=== PATIENT | female | born 1935 | race Caucasian/White ===

== ENCOUNTER 2017-04-26 14:52 | Inpatient (IN) | payer OTHER ==
[2017-04-26] MEDS ORDERED: NS 250 ML IV 250 ML IV ONE (15:38)
[2017-04-26 17:03] LABS: BASOPHILS # (AUTO) 0.1 X10^3/uL (0.0-0.1); BASOPHILS % (AUTO) 0.5 % (0.2-1.0); EOSINOPHILS # (AUTO) 0.1 x10^3/uL (0.0-0.2); EOSINOPHILS % (AUTO) 0.8 % (0.9-2.9); HEMATOCRIT 30.7 % (36.0-47.0); HEMOGLOBIN 10.1 g/dL (12.0-16.0); LYMPHOCYTES # (AUTO) 1.7 X10^3/uL (1.3-2.9); MEAN CORPUSCULAR HEMOGLOBIN 28.9 pg (27.0-34.0); MEAN CORPUSCULAR HGB CONC 32.8 g/dL (33.0-35.0); MEAN CORPUSCULAR VOLUME 88.1 fL (80.0-100.0); MEAN PLATELET VOLUME 8.3 fL (7.4-11.0); MONOCYTES # (AUTO) 0.6 x10^3/uL (0.3-0.8); MONOCYTES % (AUTO) 5.6 % (0.0-13.0); NEUTROPHILS # (AUTO) 7.8 x10^3/uL (2.2-4.8); NEUTROPHILS % (AUTO) 76.1 % (42.0-75.0); PLATELET COUNT 369 X10^3/uL (150.0-450.0); RED BLOOD COUNT 3.49 X10^6/uL (3.5-5.4); RED CELL DISTRIBUTION WIDTH 14.7 % (11.6-16.5); WHITE BLOOD COUNT 10.2 X10^3/uL (3.6-10.0)
[2017-04-26 17:10] VITALS: BMI 20.2
[2017-04-26] MEDS: NS 1000 ML 1,000 ML IV SCH (17:19)
[2017-04-26 17:25] LABS: ALANINE AMINOTRANSFERASE 14 Units/L (12-78); ALBUMIN 3.8 g/dL (3.4-5.0); ALKALINE PHOSPHATASE 110 Units/L (46-116); ASPARTATE AMINO TRANSFERASE 15 Units/L (15-37); BLOOD UREA NITROGEN 34 mg/dL (7-18); CALCIUM 9.2 mg/dL (8.5-10.1); CARBON DIOXIDE 17.2 mmol/L (21-32); CHLORIDE 102 mmol/L (98-107); CKMB % 1.8 % (<4); COR NA(FOR HYPERGLY) 135 mmol/L (136-145); CREATINE KINASE 56 Units/L (26-192); CREATINE KINASE MB < 1.0 ng/mL (0-4.0); CREATININE 2.03 mg/dL (0.55-1.02); SODIUM 132 mmol/L (136-145); TOTAL PROTEIN 7.3 g/dL (6.4-8.2); TROPONIN I < 0.02 ng/mL (0-1.5); eGFR BLACK RACES 30 (>60); eGFR NON BLACK RACES 25 (>60)
[2017-04-26] MEDS: NORVASC TAB 5 MG PO SCH (17:40)
--- NOTE | 2017-04-26 18:21 | RAD ---
Examination: Portable AP chest History: Syncope, bradycardia and AFib Comparison reference: None available Findings: Normal heart size, clear lungs and pleural spaces. There is no evidence for pneumonia, pulm onary edema or pleural fluid. There is evidence for previous breast surgery. There is slight cortical irregularity of the greater tuberosity of the left humerus. Impression: No acute chest disease noted. Previous breast surgery. Correlate clinically for any recen t injury to the left shoulder, see above. New Reported By:
[2017-04-26] MEDS ORDERED: HumuLIN R SUBCUT PRN (19:09)
[2017-04-26] MEDS: SNACK - Diabetic Appropriate PO SCH (20:42)
[2017-04-26 20:57] LABS: CKMB % 2.1 % (<4); CREATINE KINASE 48 Units/L (26-192); CREATINE KINASE MB < 1.0 ng/mL (0-4.0); TROPONIN I < 0.02 ng/mL (0-1.5)
[2017-04-27 00:14] LABS: CREATINE KINASE 49 Units/L (26-192); CREATINE KINASE MB < 1.0 ng/mL (0-4.0); TROPONIN I < 0.02 ng/mL (0-1.5)
[2017-04-27] MEDS: NS 1000 ML 1,000 ML IV SCH ×2 (05:59→18:42)
[2017-04-27 06:16] LABS: ALBUMIN 3.1 g/dL (3.4-5.0); CALCIUM 8.6 mg/dL (8.5-10.1); CARBON DIOXIDE 15.8 mmol/L (21-32); COR CA(FOR HYPOALB) 9.3 mg/dL (8.5-10.1); CREATININE 1.73 mg/dL (0.55-1.02); TOTAL PROTEIN 6.2 g/dL (6.4-8.2)
--- NOTE | 2017-04-27 06:17 | RAD ---
Examination: Portable AP chest History: Syncope, bradycardia Comparison reference: 04/26/2017 Findings: Continued normal heart size with tortuous aorta, essentially clear lungs and pleural spaces . No pneumothorax, pneumonia or large pleural effusion. Epidural device again noted in the thoracic s [place] canal. Impression: No change; no acute disease. Reported By:
[2017-04-27 06:22] LABS: BASOPHILS % (AUTO) 0.2 % (0.2-1.0); EOSINOPHILS # (AUTO) 0.2 x10^3/uL (0.0-0.2); EOSINOPHILS % (AUTO) 2.3 % (0.9-2.9); HEMATOCRIT 27.6 % (36.0-47.0); HEMOGLOBIN 9.2 g/dL (12.0-16.0); LYMPHOCYTES # (AUTO) 2.3 X10^3/uL (1.3-2.9); LYMPHOCYTES % (AUTO) 24.8 % (21.0-51.0); MEAN CORPUSCULAR HEMOGLOBIN 29.1 pg (27.0-34.0); MEAN CORPUSCULAR HGB CONC 33.3 g/dL (33.0-35.0); MEAN CORPUSCULAR VOLUME 87.5 fL (80.0-100.0); MEAN PLATELET VOLUME 8.1 fL (7.4-11.0); MONOCYTES # (AUTO) 0.8 x10^3/uL (0.3-0.8); MONOCYTES % (AUTO) 8.5 % (0.0-13.0); NEUTROPHILS % (AUTO) 64.2 % (42.0-75.0); PLATELET COUNT 324 X10^3/uL (150.0-450.0); RED BLOOD COUNT 3.15 X10^6/uL (3.5-5.4); RED CELL DISTRIBUTION WIDTH 14.5 % (11.6-16.5); WHITE BLOOD COUNT 9.4 X10^3/uL (3.6-10.0)
[2017-04-27] MEDS: NORVASC TAB 5 MG PO SCH (08:20)
[2017-04-27] MEDS ORDERED: PATIENT'S HOME MEDICATION (Fluticasone/Vilanterol [Breo Ellipta 100-25 Mcg Inh] 1 PUFF) INH PRN (09:23)
[2017-04-27] MEDS: ZESTRIL TAB 20 MG PO SCH (10:38)
[2017-04-27] MEDS ORDERED: ZESTRIL TAB 20 MG ONE (10:39)
[2017-04-27] MEDS ORDERED: CATAPRES-TTS-1 TD SCH (12:00)
--- NOTE | 2017-04-27 12:21 | DR.UPDATE ---
H&P Update History and Physical Update: WAS SEEN IN THE OFFICE ON 04/26/17. A H&P WAS COMPLETED PRIOR TO ADMISSION. Changes noted: YES Yes with the following: MS. LORD IS A PRIOR PATIENT OF . SHE RECENTLY STARTED SEEING US. PRESENTED WITH WEAKNESS THAT STARTED ONE WEEK PRIOR TO PRESENTING TO THE OFFICE. SHE REPORTED FEELING LIGHTHEADED AT HOME ON WEDNESDAY AND NEARLY PASSED OUT. SHE REPORTED EXCESSIVE FATIGUE, POOR APPETITE, AND NAUSEA. ON ARRIVAL TO THE OFFICE , HEARTRATE WAS NOTED TO BE 44BPM. BLOOD PRESSURE WAS 92/51. AN EKG WAS OBTAINED AND REPORTED ATRIAL FIBRILLATION WITH A HEART RATE IN THE 40S. PATIENT REPORTS A HISTORY OF HYPERTENSION AND CVA. SHE REPORTED THAT HER BLOOD PRESSURE HAS FLUCTUATED FROM HIGH TO LOW IN THE PAST 2 WEEKS. PATIENT DENIES A KNOWN HISTORY OF ATRIAL FIBRILLATION. PATIENT HAS A HOME MEDICATION OF LABETALOL LISTED. THIS WAS ORDERED FROM PATIENT'S PREVIOUS DOCTOR. WE WILL DISCONTINUE LABETALOL AT THIS TIME. WE ADMITTED PATIENT FOR FURTHER TREATMENT AND EVALUATION. WE PLANNED TO CHECK CBC, CMP, ECHO, CHEST XRAY, AND SERIAL CARDIAC ENZYMES AND EKGS ON ADMISSION. SHE WAS STARTED ON NORMAL SALINE BOLUS AT 75ML/ HR. A NORMAL SALINE BOLUS WILL BE ORDERED. ON ADMISSION TO THE HOSPITAL, VITAL SIGNS WERE 97.1-45-14-100%-123/59. ABNORMAL LAB VALUES INCLUDE THE FOLLOWING: WBC 10.2, RBC 3.49, HGB 10.1, HCT 30.7, SODIUM 132, POTASSIUM 6.8, CARBON DIOXIDE 17.2, BUN 34, CREATININE 2.03, GFR 25 , GLUCOSE 206. CARDIAC ENZYMES WERE UNREMARKABLE. EKG REPORTED JUNCTIONAL RHYTHM , MINIMAL ST DEPRESSION WITH HR 44. CHEST XRAY REPORTED NO ACUTE CHEST DISEASE NOTED. PREVIOUS BREAST SURGERY. SLIGHT CORTICAL IRREGULARITY OF THE GREATER TUBEROSITY OF THE LEFT HUMERUS. AN ECHO WAS OBTAINED AND REPORTED AN EJECTION FRACTION OF 78%, TRACE PERICARDIAL EFFUSION, POSTERIOR. WE PLAN TO FOLLOW UP WITH AM LABS AND CONTINUE TO MONITOR PATIENT.
[2017-04-27] MEDS: HYDROCHLOROTHIAZIDE 25 MG TAB PO SCH (12:27)
[2017-04-27] MEDS: PROVENTIL NEB TX 0.083% 2.5MG/ 3ML NEB SCH ×3 (12:45→20:09)
[2017-04-27] MEDS: NORCO 7.5/325 MG TAB PO PRN (15:14)
[2017-04-27] MEDS: PULMICORT NEB TX 0.5 MG NEB SCH (20:09)
[2017-04-27] MEDS: SNACK - Diabetic Appropriate PO SCH (20:37)
[2017-04-27] MEDS: AMBIEN PO SCH (20:38)
[2017-04-28 06:10] LABS: BASOPHILS # (AUTO) 0.1 X10^3/uL (0.0-0.1); BASOPHILS % (AUTO) 1.1 % (0.2-1.0); EOSINOPHILS # (AUTO) 0.4 x10^3/uL (0.0-0.2); EOSINOPHILS % (AUTO) 4.6 % (0.9-2.9); LYMPHOCYTES # (AUTO) 2.3 X10^3/uL (1.3-2.9); LYMPHOCYTES % (AUTO) 27.5 % (21.0-51.0); MEAN CORPUSCULAR HEMOGLOBIN 28.5 pg (27.0-34.0); MEAN CORPUSCULAR HGB CONC 32.5 g/dL (33.0-35.0); MEAN CORPUSCULAR VOLUME 87.8 fL (80.0-100.0); MEAN PLATELET VOLUME 8.3 fL (7.4-11.0); MONOCYTES # (AUTO) 0.6 x10^3/uL (0.3-0.8); MONOCYTES % (AUTO) 7.7 % (0.0-13.0); NEUTROPHILS # (AUTO) 4.9 x10^3/uL (2.2-4.8); NEUTROPHILS % (AUTO) 59.1 % (42.0-75.0); PLATELET COUNT 350 X10^3/uL (150.0-450.0); RED BLOOD COUNT 3.88 X10^6/uL (3.5-5.4); RED CELL DISTRIBUTION WIDTH 14.9 % (11.6-16.5); WHITE BLOOD COUNT 8.3 X10^3/uL (3.6-10.0)
[2017-04-28 06:23] LABS: ALANINE AMINOTRANSFERASE 16 Units/L (12-78); ALBUMIN 3.4 g/dL (3.4-5.0); ALKALINE PHOSPHATASE 106 Units/L (46-116); ASPARTATE AMINO TRANSFERASE 19 Units/L (15-37); BLOOD UREA NITROGEN 26 mg/dL (7-18); CALCIUM 8.8 mg/dL (8.5-10.1); CHLORIDE 109 mmol/L (98-107); COR NA(FOR HYPERGLY) 140 mmol/L (136-145); SODIUM 139 mmol/L (136-145); TOTAL PROTEIN 7.1 g/dL (6.4-8.2); eGFR BLACK RACES 46 (>60); eGFR NON BLACK RACES 38 (>60)
[2017-04-28] MEDS: NS 1000 ML 1,000 ML IV SCH ×2 (07:11→21:50)
--- NOTE | 2017-04-28 07:25 | RAD ---
Examination: Portable AP chest History: Syncope, AFib Comparison reference: 04/27/2017 Findings: Continued normal cardiac size and position. The lungs remain grossly clear and there is no evidence for pneumothorax or developing pleural effusion. Impression: No interval change or acute process demonstrated. Reported By:
[2017-04-28] MEDS ORDERED: ZESTRIL TAB 20 MG ONE (08:39)
[2017-04-28] MEDS: NORVASC TAB 5 MG PO SCH (08:41)
[2017-04-28] MEDS: HYDROCHLOROTHIAZIDE 25 MG TAB PO SCH (08:41)
[2017-04-28] MEDS: ZESTRIL TAB 20 MG PO SCH (08:41)
[2017-04-28] MEDS: PROVENTIL NEB TX 0.083% 2.5MG/ 3ML NEB SCH ×4 (08:55→21:01)
[2017-04-28] MEDS: PULMICORT NEB TX 0.5 MG NEB SCH ×2 (08:56→21:01)
[2017-04-28] MEDS ORDERED: CATAPRES-TTS-3 TD SCH (11:00)
[2017-04-28] MEDS: NORVASC TAB 10 MG PO SCH (11:20)
[2017-04-28] MEDS: NORCO 7.5/325 MG TAB PO PRN (12:18)
--- NOTE | 2017-04-28 13:15 | PCM.PROG ---
Progress Note - Progress Note for Day of Date: 04/27/17 - Subjective Subjective: WAS ADMITTED FOR NEAR SYNCOPE, NEW ONSET BRADYCARDIA, AND NEW ONSET A-FIB. TODAY, PATIENT IS ALERT AND ORIENTED, LYING IN BED ON MORNING ROUNDS. SHE IS NOTED WITH COMPLAINTS OF WEAKNESS. ON EXAMINATION, LUNGS ARE CLEAR TO AUSCULTATION. ABDOMEN IS ROUND, SOFT, AND NON-TENDER WITH NORMAL BOWEL SOUNDS NOTED IN ALL QUADRANTS. PATIENT IS NOTED TO BE UTILIZING OXYGEN VIA NASAL CANNULA AT 2L/MIN. SINUS BRADYCARDIA IS NOTED ON THE NUTRITIONAL YEAST SUPERVISOR. HER VITAL SIGNS THIS MORNING ARE 98.7-47-17-100%-171/70. LABS, CHEST XRAY, AND EKG WERE OBTAINED. ABNORMAL LAB VALUES INCLUDE THE FOLLOWING: RBC 3.15, HGB 9.2 , HCT 27.6. POTASSIUM 5.3, CHLORIDE 108, CARBON DIOXIDE 15.8, BUN 29, CREATININE 1.73, GLUCOSE 144, TOTAL PROTEIN 6.2, ALBUMIN 3.1. CARDIAC ENZYMES HAVE BEEN UNREMARKABLE. LATEST EKG REPORTS JUNCTIONAL RHYTHM WITH HR OF 50. TODAY'S CHEST XRAY REPORTS NO ACUTE DISEASE. PATIENT WAS NOTED TO BE ON A HOME MEDICATION OF LABETALOL PRIOR TO ADMISSION. WE WILL DISCONTINUE THIS MEDICATION AND ADVISE THE PATIENT NO STOP TAKING IT. TODAY, WE PLAN TO START CLONIDINE 0.3MG TD PATCH AND HCTZ 25MG PO DAILY. OTHERWISE, WE WILL CONTINUE WITH CURRENT PLAN OF CARE. WE PLAN TO FOLLOW UP WITH AM LABS AND CONTINUE TO MONITOR PATIENT. - Past Medical Family Social History Past Med/Fam/Surg Hx: No changes since H&P Allergies: Allergies No Known Allergies [NKA] Allergy (Verified 04/26/17 16:45) - Review of Systems ROS: No change since H&P - Vital Signs and I&O's Vital Signs: Temperature 98.4 F Pulse Rate [Apical] 79 Pulse Rate 78 Respiratory Rate 22 Blood Pressure [Right Arm] 196/88 Blood Pressure [Left Arm] 177/74 O2 Sat by Pulse Oximetry 97 Intake and Output: Intake & Output 04/26/17 04/27/17 04/28/17 04/29/17 11:59 11:59 11:59 11:59 Intake Total 1349 2316 Balance 1349 2316 - Physical Exam Oriented: Normal Eyes: Normal Ear: Normal. negative: Right, Left, Swelling, Ecchymosis, Hemotypanum, Abrasion , Laceration Nose: Normal. negative: Injected, Discharge, Blood, Other Throat: Normal. negative: Tonsillar Hypertrophy, Red, Exudate, Dry, Other Respiratory: Normal. negative: Right, Left, Generalized, Superior, Inferior, Diminished, Wheezes, Rales, Rhonchi, OTHER Cardiovascular: Bradycardia. negative: Tachycardia, Murmur, Edema Auscultation: Bowel Sounds: Normal. negative: Bruit, Absent, Increased, Decreased, High Pitched, Other Palpation: Normal Tenderness: Normal. negative: Diffuse, RUQ, RLQ, LUQ, LLQ, Epigastric, Periumbilical, Suprapubic, Mild, Moderate, Severe, Rebound, Guarding, Rigidity, Other Skin: Normal Musculoskeletal: Normal Psychiatric: Normal. negative: Anxiety, Depression, Agitation, Other Mood Description: Calm Affect: Normal Speech Pattern: Clear, Appropriate - Laboratory and Diagnostics Result Diagrams: 04/28/17 05:45 04/28/17 05:45 Labs: Laboratory WBC 8.3 X10^3/uL (3.6-10.0) 04/28/17 05:45 RBC 3.88 X10^6/uL (3.5-5.4) 04/28/17 05:45 Hgb 11.0 g/dL (12.0-16.0) L 04/28/17 05:45 Hct 34.0 % (36.0-47.0) L 04/28/17 05:45 MCV 87.8 fL (80.0-100.0) 04/28/17 05:45 MCH 28.5 pg (27.0-34.0) 04/28/17 05:45 MCHC 32.5 g/dL (33.0-35.0) L 04/28/17 05:45 RDW 14.9 % (11.6-16.5) 04/28/17 05:45 Plt Count 350 X10^3/uL (150.0-450.0) 04/28/17 05:45 MPV 8.3 fL (7.4-11.0) 04/28/17 05:45 Neut % 59.1 % (42.0-75.0) 04/28/17 05:45 Lymph % 27.5 % (21.0-51.0) 04/28/17 05:45 [place] % 7.7 % (0.0-13.0) 04/28/17 05:45 Eos % 4.6 % (0.9-2.9) H 04/28/17 05:45 Baso % 1.1 % (0.2-1.0) H 04/28/17 05:45 Neut # 4.9 x10^3/uL (2.2-4.8) H 04/28/17 05:45 Lymph # 2.3 X10^3/uL (1.3-2.9) 04/28/17 05:45 [place] # 0.6 x10^3/uL (0.3-0.8) 04/28/17 05:45 Eos # 0.4 x10^3/uL (0.0-0.2) H 04/28/17 05:45 Baso # 0.1 X10^3/uL (0.0-0.1) 04/28/17 05:45 Absolute Nucleated RBC 0.1 /100WBC 04/28/17 05:45 Sodium 139 mmol/L (136-145) 04/28/17 05:45 Corrected Sodium 140 mmol/L (136-145) 04/28/17 05:45 Potassium 5.4 mmol/L (3.5-5.1) H 04/28/17 05:45 Chloride 109 mmol/L (98-107) H 04/28/17 05:45 Carbon Dioxide 19.0 mmol/L (21-32) L 04/28/17 05:45 BUN 26 mg/dL (7-18) H 04/28/17 05:45 Creatinine 1.40 mg/dL (0.55-1.02) H 04/28/17 05:45 Est GFR (MDRD) Af Amer 46 (>60) L 04/28/17 05:45 Est GFR (MDRD) Non-Af 38 (>60) L 04/28/17 05:45 Glucose 129 mg/dL (65-99) H 04/28/17 05:45 POC Glucose (mg/dL) 153 mg/dL (65-99) H 04/28/17 12:16 Calcium 8.8 mg/dL (8.5-10.1) 04/28/17 05:45 Corrected Calcium TNP 04/28/17 05:45 Total Bilirubin 0.30 mg/dL (0.2-1.0) 04/28/17 05:45 AST 19 Units/L (15-37) 04/28/17 05:45 ALT 16 Units/L (12-78) 04/28/17 05:45 Alkaline Phosphatase 106 Units/L (46-116) 04/28/17 05:45 Creatine Kinase 49 Units/L (26-192) 04/26/17 23:43 CK-MB (CK-2) < 1.0 ng/mL (0-4.0) 04/26/17 23:43 CK/CKMB % Calc 2.0 % (<4) 04/26/17 23:43 Troponin I < 0.02 ng/mL (0-1.5) 04/26/17 23:43 Total Protein 7.1 g/dL (6.4-8.2) 04/28/17 05:45 Albumin 3.4 g/dL (3.4-5.0) 04/28/17 05:45 Globulin 3.7 g/dL (2.5-4.5) 04/28/17 05:45 Albumin/Globulin Ratio 0.9 Ratio (1.1-2.1) L 04/28/17 05:45 - Plan (1) Bradycardia Status: Acute Plan: DISCONTINUE LABETALOL FROM HOME MEDICATIONS, CONTINUE SUPPLEMENTAL OXYGEN , CONTINUE TELEMETRY, CONTINUE TO MONITOR (2) Near syncope Status: Acute Plan: CONTINUE IVF, CONTINUE TELEMETRY, CONTINUE TO MONITOR (3) Hypertension Status: Acute Qualifiers: Hypertension type: essential hypertension Qualified Code(s): I10 - Essential (primary) hypertension Plan: START CLONIDINE 0.1MG TD PATCH, HCTZ 25MG PO DAILY, CONTINUE LISINOPRIL 25MG PO DAILY, CONTINUE NORVASC 5MG PO DAILY, CONTINUE TO MONITOR (4) Diabetes Status: Acute Qualifiers: Diabetes mellitus type: type 2 Diabetes mellitus complication status: without complication Diabetes mellitus tank terminal gauger insulin use: with tank terminal gauger use Qualified Code(s): E11.9 - Type 2 diabetes mellitus without complications ; Z79.4 - assisted (current) use of insulin; Z79.4 - assisted (current) use of insulin; Z79.4 - ferry terminal supervisor (current) use of insulin; Z79.4 - assisted ( current) use of insulin Plan: MONITOR OTBS, SLIDING SCALE HUMULIN R, CONTINUE TO MONITOR
[2017-04-28] MEDS: AMBIEN PO SCH (21:51)
[2017-04-28] MEDS: SNACK - Diabetic Appropriate PO SCH (21:51)
[2017-04-29] MEDS: NS 1000 ML 1,000 ML IV SCH (05:43)
[2017-04-29 06:06] LABS: BASOPHILS # (AUTO) 0.1 X10^3/uL (0.0-0.1); BASOPHILS % (AUTO) 1.4 % (0.2-1.0); EOSINOPHILS # (AUTO) 0.3 x10^3/uL (0.0-0.2); EOSINOPHILS % (AUTO) 3.9 % (0.9-2.9); HEMATOCRIT 33.5 % (36.0-47.0); LYMPHOCYTES # (AUTO) 1.9 X10^3/uL (1.3-2.9); LYMPHOCYTES % (AUTO) 25.3 % (21.0-51.0); MEAN CORPUSCULAR HEMOGLOBIN 28.7 pg (27.0-34.0); MEAN CORPUSCULAR HGB CONC 32.9 g/dL (33.0-35.0); MEAN CORPUSCULAR VOLUME 87.1 fL (80.0-100.0); MEAN PLATELET VOLUME 8.7 fL (7.4-11.0); MONOCYTES # (AUTO) 0.6 x10^3/uL (0.3-0.8); MONOCYTES % (AUTO) 8.8 % (0.0-13.0); NEUTROPHILS # (AUTO) 4.5 x10^3/uL (2.2-4.8); NEUTROPHILS % (AUTO) 60.6 % (42.0-75.0); PLATELET COUNT 362 X10^3/uL (150.0-450.0); RED BLOOD COUNT 3.84 X10^6/uL (3.5-5.4); RED CELL DISTRIBUTION WIDTH 14.7 % (11.6-16.5); WHITE BLOOD COUNT 7.4 X10^3/uL (3.6-10.0)
[2017-04-29 06:20] LABS: ALBUMIN 3.3 g/dL (3.4-5.0); CARBON DIOXIDE 20.6 mmol/L (21-32); COR CA(FOR HYPOALB) 9.6 mg/dL (8.5-10.1); CREATININE 1.29 mg/dL (0.55-1.02); TOTAL PROTEIN 6.9 g/dL (6.4-8.2)
[2017-04-29] MEDS ORDERED: ZESTRIL TAB 20 MG ONE (08:09)
[2017-04-29] MEDS: ZESTRIL TAB 20 MG PO SCH (08:10)
[2017-04-29] MEDS: HYDROCHLOROTHIAZIDE 25 MG TAB PO SCH (08:10)
[2017-04-29] MEDS: NORVASC TAB 10 MG PO SCH (08:10)
[2017-04-29] MEDS: PULMICORT NEB TX 0.5 MG NEB SCH ×2 (09:27→21:05)
[2017-04-29] MEDS: PROVENTIL NEB TX 0.083% 2.5MG/ 3ML NEB SCH ×4 (09:27→21:05)
[2017-04-29] MEDS: TOPROL XL PO SCH (11:40)
[2017-04-29] MEDS: NORCO 7.5/325 MG TAB PO PRN (13:10)
[2017-04-29] MEDS: AMBIEN PO SCH (21:12)
[2017-04-29] MEDS: SNACK - Diabetic Appropriate PO SCH (21:17)
[2017-04-30 05:38] LABS: BASOPHILS # (AUTO) 0.1 X10^3/uL (0.0-0.1); BASOPHILS % (AUTO) 1.1 % (0.2-1.0); EOSINOPHILS # (AUTO) 0.3 x10^3/uL (0.0-0.2); EOSINOPHILS % (AUTO) 4.3 % (0.9-2.9); HEMATOCRIT 32.8 % (36.0-47.0); HEMOGLOBIN 10.8 g/dL (12.0-16.0); LYMPHOCYTES # (AUTO) 1.9 X10^3/uL (1.3-2.9); LYMPHOCYTES % (AUTO) 28.4 % (21.0-51.0); MEAN CORPUSCULAR HEMOGLOBIN 28.8 pg (27.0-34.0); MEAN CORPUSCULAR HGB CONC 32.8 g/dL (33.0-35.0); MEAN CORPUSCULAR VOLUME 87.8 fL (80.0-100.0); MEAN PLATELET VOLUME 8.2 fL (7.4-11.0); MONOCYTES # (AUTO) 0.6 x10^3/uL (0.3-0.8); NEUTROPHILS # (AUTO) 3.9 x10^3/uL (2.2-4.8); NEUTROPHILS % (AUTO) 57.2 % (42.0-75.0); PLATELET COUNT 356 X10^3/uL (150.0-450.0); RED BLOOD COUNT 3.74 X10^6/uL (3.5-5.4); RED CELL DISTRIBUTION WIDTH 14.2 % (11.6-16.5); WHITE BLOOD COUNT 6.8 X10^3/uL (3.6-10.0)
[2017-04-30 05:44] LABS: CALCIUM 9.1 mg/dL (8.5-10.1); CARBON DIOXIDE 23.4 mmol/L (21-32); COR CA(FOR HYPOALB) 9.9 mg/dL (8.5-10.1); CREATININE 1.34 mg/dL (0.55-1.02); TOTAL PROTEIN 6.3 g/dL (6.4-8.2)
[2017-04-30] MEDS: PULMICORT NEB TX 0.5 MG NEB SCH (08:41)
[2017-04-30] MEDS: PROVENTIL NEB TX 0.083% 2.5MG/ 3ML NEB SCH ×2 (08:41→11:44)
[2017-04-30] MEDS ORDERED: ZESTRIL TAB 20 MG ONE (09:00)
[2017-04-30] MEDS: TOPROL XL PO SCH (09:01)
[2017-04-30] MEDS: NORVASC TAB 10 MG PO SCH (09:01)
[2017-04-30] MEDS: ZESTRIL TAB 20 MG PO SCH (09:01)
[2017-04-30] MEDS: HYDROCHLOROTHIAZIDE 25 MG TAB PO SCH (09:01)
[2017-04-30] MEDS: NORCO 7.5/325 MG TAB PO PRN (09:40)
--- NOTE | 2017-04-30 10:19 | PCM.PROG ---
Progress Note - Subjective Subjective: WAS ADMITTED FOR NEAR SYNCOPE, NEW ONSET BRADYCARDIA, AND NEW ONSET A-FIB. TODAY, PATIENT IS ALERT AND ORIENTED, LYING IN BED ON MORNING ROUNDS. SHE CONTINUES WITH COMPLAINTS OF WEAKNESS AND IS ALSO NOTED WITH COMPLAINTS OF A HEADACHE. ON EXAMINATION, LUNGS ARE CLEAR TO AUSCULTATION. ABDOMEN IS ROUND, SOFT, AND NON-TENDER WITH NORMAL BOWEL SOUNDS NOTED IN ALL QUADRANTS. PATIENT IS NOTED TO BE UTILIZING OXYGEN VIA NASAL CANNULA AT 2L/MIN. SINUS RHYTHM IS NOTED ON THE JUNIOR BUSINESS ANALYST WITH HR IN THE 70S. HER VITAL SIGNS THIS MORNING ARE 98.2-73-22-100%-180/79. ABNORMAL LAB VALUES THIS MORING INCLUDE THE FOLLOWING: HGB 11.0, HCT 34. POTASSIUM 5.4, CHLORIDE 109, CARBON DIOXIDE 19.0, BUN 26, CREATININE 1.40, GLUCOSE 129. LATEST EKG REPORTS SINUS RHYTHM WITH HR 77. TODAY'S CHEST XRAY REPORTS NO INTERVAL CHANGE OR ACUTE PROCESS DEMONSTRATED. PATIENTS BLOOD PRESSURE REMAINS ELEVATED DESPITE CHANGES TO BLOOD PRESSURE MEDICATIONS. TODAY, WE WILL INCREASE CLONIDINE PATCH TO 0.3MG WEEKLY AND WILL INCREASE AMLODIPINE TO 10MG DAILY. OTHERWISE, WE WILL CONTINUE WITH CURRENT PLAN OF CARE. WE PLAN TO FOLLOW UP WITH AM LABS AND CONTINUE TO MONITOR PATIENT. - Past Medical Family Social History Past Med/Fam/Surg Hx: No changes since H&P Allergies: Allergies No Known Allergies [NKA] Allergy (Verified 04/26/17 16:45) - Review of Systems ROS: No change since H&P - Vital Signs and I&O's Vital Signs: Temperature 97.6 F Pulse Rate [Apical] 77 Pulse Rate 71 Respiratory Rate 18 Blood Pressure [Right Arm] 184/75 Blood Pressure [Left Arm] 177/74 O2 Sat by Pulse Oximetry 97 Intake and Output: Intake & Output 04/27/17 04/28/17 04/29/17 04/30/17 11:59 11:59 11:59 11:59 Intake Total 1349 2316 2628 1360 Output Total 1000 Balance 1349 2316 1628 1360 - Physical Exam Oriented: Normal Eyes: Normal Ear: Normal. negative: Right, Left, Swelling, Ecchymosis, Hemotypanum, Abrasion , Laceration Nose: Normal. negative: Injected, Discharge, Blood, Other Throat: Normal. negative: Tonsillar Hypertrophy, Red, Exudate, Dry, Other Respiratory: Normal. negative: Right, Left, Generalized, Superior, Inferior, Diminished, Wheezes, Rales, Rhonchi, OTHER Cardiovascular: Bradycardia. negative: Tachycardia, Murmur, Edema Auscultation: Bowel Sounds: Normal. negative: Bruit, Absent, Increased, Decreased, High Pitched, Other Palpation: Normal Tenderness: Normal. negative: Diffuse, RUQ, RLQ, LUQ, LLQ, Epigastric, Periumbilical, Suprapubic, Mild, Moderate, Severe, Rebound, Guarding, Rigidity, Other Skin: Normal Musculoskeletal: Normal Psychiatric: Normal. negative: Anxiety, Depression, Agitation, Other Mood Description: Calm Affect: Normal Speech Pattern: Clear, Appropriate - Laboratory and Diagnostics Result Diagrams: 04/30/17 04:40 04/30/17 04:40 Labs: Laboratory WBC 6.8 X10^3/uL (3.6-10.0) 04/30/17 04:40 RBC 3.74 X10^6/uL (3.5-5.4) 04/30/17 04:40 Hgb 10.8 g/dL (12.0-16.0) L 04/30/17 04:40 Hct 32.8 % (36.0-47.0) L 04/30/17 04:40 MCV 87.8 fL (80.0-100.0) 04/30/17 04:40 MCH 28.8 pg (27.0-34.0) 04/30/17 04:40 MCHC 32.8 g/dL (33.0-35.0) L 04/30/17 04:40 RDW 14.2 % (11.6-16.5) 04/30/17 04:40 Plt Count 356 X10^3/uL (150.0-450.0) 04/30/17 04:40 MPV 8.2 fL (7.4-11.0) 04/30/17 04:40 Neut % 57.2 % (42.0-75.0) 04/30/17 04:40 Lymph % 28.4 % (21.0-51.0) 04/30/17 04:40 [place] % 9.0 % (0.0-13.0) 04/30/17 04:40 Eos % 4.3 % (0.9-2.9) H 04/30/17 04:40 Baso % 1.1 % (0.2-1.0) H 04/30/17 04:40 Neut # 3.9 x10^3/uL (2.2-4.8) 04/30/17 04:40 Lymph # 1.9 X10^3/uL (1.3-2.9) 04/30/17 04:40 [place] # 0.6 x10^3/uL (0.3-0.8) 04/30/17 04:40 Eos # 0.3 x10^3/uL (0.0-0.2) H 04/30/17 04:40 Baso # 0.1 X10^3/uL (0.0-0.1) 04/30/17 04:40 Absolute Nucleated RBC 0.1 /100WBC 04/30/17 04:40 Sodium 138 mmol/L (136-145) 04/30/17 04:40 Corrected Sodium 139 mmol/L (136-145) 04/30/17 04:40 Potassium 4.8 mmol/L (3.5-5.1) 04/30/17 04:40 Chloride 107 mmol/L (98-107) 04/30/17 04:40 Carbon Dioxide 23.4 mmol/L (21-32) 04/30/17 04:40 BUN 28 mg/dL (7-18) H 04/30/17 04:40 Creatinine 1.34 mg/dL (0.55-1.02) H 04/30/17 04:40 Est GFR (MDRD) Af Amer 49 (>60) L 04/30/17 04:40 Est GFR (MDRD) Non-Af 40 (>60) L 04/30/17 04:40 Glucose 136 mg/dL (65-99) H 04/30/17 04:40 POC Glucose (mg/dL) 147 mg/dL (65-99) H 04/30/17 06:02 Calcium 9.1 mg/dL (8.5-10.1) 04/30/17 04:40 Corrected Calcium 9.9 mg/dL (8.5-10.1) 04/30/17 04:40 Total Bilirubin 0.20 mg/dL (0.2-1.0) 04/30/17 04:40 AST 15 Units/L (15-37) 04/30/17 04:40 ALT 14 Units/L (12-78) 04/30/17 04:40 Alkaline Phosphatase 98 Units/L (46-116) 04/30/17 04:40 Creatine Kinase 49 Units/L (26-192) 04/26/17 23:43 CK-MB (CK-2) < 1.0 ng/mL (0-4.0) 04/26/17 23:43 CK/CKMB % Calc 2.0 % (<4) 04/26/17 23:43 Troponin I < 0.02 ng/mL (0-1.5) 04/26/17 23:43 Total Protein 6.3 g/dL (6.4-8.2) L 04/30/17 04:40 Albumin 3.0 g/dL (3.4-5.0) L 04/30/17 04:40 Globulin 3.3 g/dL (2.5-4.5) 04/30/17 04:40 Albumin/Globulin Ratio 0.9 Ratio (1.1-2.1) L 04/30/17 04:40 - Plan (1) Bradycardia Status: Resolved Plan: CONTINUE SUPPLEMENTAL OXYGEN, CONTINUE TELEMETRY, CONTINUE TO MONITOR (2) Near syncope Status: Acute Plan: CONTINUE IVF, CONTINUE TELEMETRY, CONTINUE TO MONITOR (3) Hypertension Status: Acute Qualifiers: Hypertension type: essential hypertension Qualified Code(s): I10 - Essential (primary) hypertension Plan: START CLONIDINE 0.3MG TD PATCH, HCTZ 25MG PO DAILY, CONTINUE LISINOPRIL 25MG PO DAILY, NORVASC 10 MG PO DAILY, CONTINUE TO MONITOR (4) Diabetes Status: Acute Qualifiers: Diabetes mellitus type: type 2 Diabetes mellitus complication status: without complication Diabetes mellitus buttermaker insulin use: with buttermaker use Qualified Code(s): E11.9 - Type 2 diabetes mellitus without complications ; Z79.4 - alf (current) use of insulin; Z79.4 - alf (current) use of insulin; Z79.4 - alf (current) use of insulin; Z79.4 - exterminator helper ( current) use of insulin Plan: MONITOR OTBS, SLIDING SCALE HUMULIN R, CONTINUE TO MONITOR
[2017-04-30 10:20] VITALS: BP 160/75
--- NOTE | 2017-05-02 21:57 | PCM.PROG ---
Progress Note - Progress Note for Day of Date: 04/29/17 - Subjective Subjective: WAS ADMITTED FOR NEAR SYNCOPE, NEW ONSET BRADYCARDIA, AND NEW ONSET A-FIB. TODAY, PATIENT IS ALERT AND ORIENTED, LYING IN BED ON MORNING ROUNDS. SHE CONTINUES WITH COMPLAINTS OF WEAKNESS AND IS ALSO NOTED WITH COMPLAINTS OF A HEADACHE. PATIENT HAD AN EPISODE OF ATRIAL FIBRILLATION THROUGHOUT THE NIGHT. LATEST EKG REPORTS ATRIAL FIBRILLATION WITH RVR, VENTRICULAR PREMATURE COMPLEX, HR 159. ON EXAMINATION, LUNGS ARE CLEAR TO AUSCULTATION. ABDOMEN IS ROUND, SOFT, AND NON-TENDER WITH NORMAL BOWEL SOUNDS NOTED IN ALL QUADRANTS. PATIENT IS NOTED TO BE UTILIZING OXYGEN VIA NASAL CANNULA AT 2L/MIN. SINUS RHYTHM IS NOTED ON THE MEDICAL OFFICE WORKER WITH HR IN THE 90S. HER VITAL SIGNS THIS MORNING ARE 98.3-98-23-100%-194/87. ABNORMAL LAB VALUES THIS MORING INCLUDE THE FOLLOWING: HGB 10.8, HCT 32.8, CHLORIDE 108, CARBON DIOXIDE 20.6, BUN 23, CREATININE 1.29, GLUCOSE 128, ALBUMIN 3.3, A/G RATIO 0.9. PATIENTS BLOOD PRESSURE REMAINS ELEVATED DESPITE CHANGES TO BLOOD PRESSURE MEDICATIONS. TODAY, WE WILL START METOPROLOL XL 25MG PO DAILY. OTHERWISE, WE WILL CONTINUE WITH CURRENT PLAN OF CARE. WE PLAN TO FOLLOW UP WITH AM LABS AND CONTINUE TO MONITOR PATIENT. - Past Medical Family Social History Past Med/Fam/Surg Hx: No changes since H&P Allergies: Allergies No Known Allergies [NKA] Allergy (Verified 04/26/17 16:45) - Review of Systems ROS: No change since H&P - Vital Signs and I&O's Vital Signs: Temperature 97.6 F Pulse Rate [Apical] 74 Pulse Rate 71 Respiratory Rate 24 Blood Pressure [Right Arm] 160/75 Blood Pressure [Left Arm] 177/74 O2 Sat by Pulse Oximetry 97 Intake and Output: Intake & Output 04/30/17 05/01/17 05/02/17 05/03/17 11:59 11:59 11:59 11:59 Intake Total 1360 Balance 1360 - Physical Exam Oriented: Normal Eyes: Normal Ear: Normal. negative: Right, Left, Swelling, Ecchymosis, Hemotypanum, Abrasion , Laceration Nose: Normal. negative: Injected, Discharge, Blood, Other Throat: Normal. negative: Tonsillar Hypertrophy, Red, Exudate, Dry, Other Respiratory: Normal. negative: Right, Left, Generalized, Superior, Inferior, Diminished, Wheezes, Rales, Rhonchi, OTHER Cardiovascular: Bradycardia. negative: Tachycardia, Murmur, Edema : Normal Auscultation: Bowel Sounds: Normal. negative: Bruit, Absent, Increased, Decreased, High Pitched, Other Palpation: Normal Tenderness: Normal. negative: Diffuse, RUQ, RLQ, LUQ, LLQ, Epigastric, Periumbilical, Suprapubic, Mild, Moderate, Severe, Rebound, Guarding, Rigidity, Other Skin: Normal Musculoskeletal: Normal Psychiatric: Normal. negative: Anxiety, Depression, Agitation, Other Mood Description: Calm Affect: Normal Speech Pattern: Clear, Appropriate - Laboratory and Diagnostics Result Diagrams: 04/30/17 04:40 04/30/17 04:40 Labs: Laboratory WBC 6.8 X10^3/uL (3.6-10.0) 04/30/17 04:40 RBC 3.74 X10^6/uL (3.5-5.4) 04/30/17 04:40 Hgb 10.8 g/dL (12.0-16.0) L 04/30/17 04:40 Hct 32.8 % (36.0-47.0) L 04/30/17 04:40 MCV 87.8 fL (80.0-100.0) 04/30/17 04:40 MCH 28.8 pg (27.0-34.0) 04/30/17 04:40 MCHC 32.8 g/dL (33.0-35.0) L 04/30/17 04:40 RDW 14.2 % (11.6-16.5) 04/30/17 04:40 Plt Count 356 X10^3/uL (150.0-450.0) 04/30/17 04:40 MPV 8.2 fL (7.4-11.0) 04/30/17 04:40 Neut % 57.2 % (42.0-75.0) 04/30/17 04:40 Lymph % 28.4 % (21.0-51.0) 04/30/17 04:40 [place] % 9.0 % (0.0-13.0) 04/30/17 04:40 Eos % 4.3 % (0.9-2.9) H 04/30/17 04:40 Baso % 1.1 % (0.2-1.0) H 04/30/17 04:40 Neut # 3.9 x10^3/uL (2.2-4.8) 04/30/17 04:40 Lymph # 1.9 X10^3/uL (1.3-2.9) 04/30/17 04:40 [place] # 0.6 x10^3/uL (0.3-0.8) 04/30/17 04:40 Eos # 0.3 x10^3/uL (0.0-0.2) H 04/30/17 04:40 Baso # 0.1 X10^3/uL (0.0-0.1) 04/30/17 04:40 Absolute Nucleated RBC 0.1 /100WBC 04/30/17 04:40 Sodium 138 mmol/L (136-145) 04/30/17 04:40 Corrected Sodium 139 mmol/L (136-145) 04/30/17 04:40 Potassium 4.8 mmol/L (3.5-5.1) 04/30/17 04:40 Chloride 107 mmol/L (98-107) 04/30/17 04:40 Carbon Dioxide 23.4 mmol/L (21-32) 04/30/17 04:40 BUN 28 mg/dL (7-18) H 04/30/17 04:40 Creatinine 1.34 mg/dL (0.55-1.02) H 04/30/17 04:40 Est GFR (MDRD) Af Amer 49 (>60) L 04/30/17 04:40 Est GFR (MDRD) Non-Af 40 (>60) L 04/30/17 04:40 Glucose 136 mg/dL (65-99) H 04/30/17 04:40 POC Glucose (mg/dL) 147 mg/dL (65-99) H 04/30/17 06:02 Calcium 9.1 mg/dL (8.5-10.1) 04/30/17 04:40 Corrected Calcium 9.9 mg/dL (8.5-10.1) 04/30/17 04:40 Total Bilirubin 0.20 mg/dL (0.2-1.0) 04/30/17 04:40 AST 15 Units/L (15-37) 04/30/17 04:40 ALT 14 Units/L (12-78) 04/30/17 04:40 Alkaline Phosphatase 98 Units/L (46-116) 04/30/17 04:40 Creatine Kinase 49 Units/L (26-192) 04/26/17 23:43 CK-MB (CK-2) < 1.0 ng/mL (0-4.0) 04/26/17 23:43 CK/CKMB % Calc 2.0 % (<4) 04/26/17 23:43 Troponin I < 0.02 ng/mL (0-1.5) 04/26/17 23:43 Total Protein 6.3 g/dL (6.4-8.2) L 04/30/17 04:40 Albumin 3.0 g/dL (3.4-5.0) L 04/30/17 04:40 Globulin 3.3 g/dL (2.5-4.5) 04/30/17 04:40 Albumin/Globulin Ratio 0.9 Ratio (1.1-2.1) L 04/30/17 04:40 - Plan (1) Bradycardia Status: Resolved Plan: CONTINUE SUPPLEMENTAL OXYGEN, CONTINUE TELEMETRY, CONTINUE TO MONITOR (2) Near syncope Status: Acute Plan: CONTINUE IVF, CONTINUE TELEMETRY, CONTINUE TO MONITOR (3) Hypertension Status: Acute Qualifiers: Hypertension type: essential hypertension Qualified Code(s): I10 - Essential (primary) hypertension Plan: START CLONIDINE 0.3MG TD PATCH, HCTZ 25MG PO DAILY, CONTINUE LISINOPRIL 25MG PO DAILY, NORVASC 10 MG PO DAILY, CONTINUE TO MONITOR (4) Atrial fibrillation Status: Acute Qualifiers: Atrial fibrillation type: unspecified Qualified Code(s): I48.91 - Unspecified atrial fibrillation Plan: METOPROLOL XL 25MG PO DAILY, CONTINUE TO MONITOR (5) Diabetes Status: Acute Qualifiers: Diabetes mellitus type: type 2 Diabetes mellitus complication status: without complication Diabetes mellitus intermodal truck driver insulin use: with [facility] use Qualified Code(s): E11.9 - Type 2 diabetes mellitus without complications ; Z79.4 - group home (current) use of insulin; Z79.4 - extermination inspector (current) use of insulin; Z79.4 - group home (current) use of insulin; Z79.4 - group home ( current) use of insulin Plan: MONITOR OTBS, SLIDING SCALE HUMULIN R, CONTINUE TO MONITOR
== END 2017-04-30 11:50 | disposition home or self-care (01) | DRG 310 ==
LOC: UNDOADMIN 14:52 → ICU 14:52
PROVIDERS: ADMIT Internal Medicine; ATTEND Internal Medicine
DX: R00.1 Bradycardia, unspecified (principal); R55 Syncope and collapse; I48.91 Unspecified atrial fibrillation; R94.31 Abnormal electrocardiogram [ECG] [EKG]; I10 Essential (primary) hypertension; E11.65 Type 2 diabetes mellitus with hyperglycemia; Z79.4 Long term (current) use of insulin
CPT/HCPCS: 36415; 71010; 80053; 82550; 82553; 84484; 85025; 93005; 93306; 94640; A4216; A4222; J7613; J7626

== ENCOUNTER 2017-07-09 17:00 | Emergency (ER) | payer OTHER ==
[2017-07-09] MEDS ORDERED: NARCAN INJ IVP ONE (17:10)
[2017-07-09] MEDS ORDERED: NARCAN INJ ONE (17:21)
--- NOTE | 2017-07-09 17:28 | RAD ---
Examination: AP chest History: Chest pain Comparison reference 04/28/2017 Findings: Continued normal heart size with clear lungs and pleural spaces. There is a spinal cord sti mulator device in the thoracic spinal canal. Impression: Postsurgical findings, no acute process identified. Reported By:
--- NOTE | 2017-07-09 17:33 | DR.AMS ---
HPI - PCP Primary Care Physician: CASSANDRA - Complaint Chief Complaint:: ADMISSION CALLED TO HELP GET PT OUT OF THE CAR .. PT LIMP AND PLACED IN CARDIAC ROOM VIA W/C PT PLACED IN BED PT IS ABLE TO TALK AND ABLE TO ANSWER QUESTIONS PT STATES SHE HAS AN APPT TOMORROW FOR A PACEMAKER,, Self Treatment fo Chief Complaint: PT HR IN THE 40'S UPON ARRIVAL PT PLACED ON CM AND FERMÍN ROBL[place] AT BEDSIDE. - Reviewed Nurses Notes Reviewed: Yes - Source History Provided: Patient, Family Member - Mode of Arrival Mode of Arrival: Wheelchair - Timing Onset of Chief Complaint: 07/09/17 Came On: Gradually (hasn't felt well since last night, but no specific symptoms ) Symptoms: Worsening Symptom Onset: Unknown - Duration Duration: Constant - Quality Quality: Decreased Alertness - Severity Severity: Moderate - Context History Of: Diabetes (Pt awaiting pacemaker appt. Hx diamond episodes) - Associated Signs and Symptoms Associated Signs and Symptoms: Generalized Weakness (diaphorertic on arrival), Confusion PMH - PMH Past Medical History: Yes (hx diamond episodes) Past Medical History: Anemia, CVA, Diabetes, GERD, Hypertension Past Medical History Comment: PT HAS A STIMULATOR TO HER BACK.. Past Surgical History: Yes Surgical History: Appendectomy, Hysterectomy, Tonsillectomy - Family History History of Family Medical Conditions: Yes Family Medical History: Diabetes Mellitus, Cancer - Social History Does patient currently use any type of tobacco product: No Have you used tobacco products in the last 12 months: No Type of Tobacco Use: None Does any household member use tobacco: No Alcohol Use: None Do you use any recreational Drugs:: No Lives With: Family Lives Where: Home - infectious screening In the last 2 months have you had wt loss of >10#?: NO Have you had fever, night sweats or hemotysis?: No Have you traveled outside the country in the last 6 months?: No Isolation: Standard ROS - Review of Systems Constitutional: Diaphoresis, Weakness (feels generally weak, states 'this happens sometimes'. Answers slowly but appropriately) Eyes: No Symptoms Reported ENTM: No Symptoms Reported Respiratoy: No Symptoms Reported. negative: Short of Breath Cardiovascular: negative: Chest Pain, Edema, Palpitations, Syncope (near syncope ) Gastrointestinal/Abdominal: No Symptoms Reported Genitourinary: No Symptoms Reported Neurological: Weakness, Problems Walking (generalized weakness) Musculoskeletal: No Symptoms Reported Integumentary: No Symptoms Reported Hematologic/Lymphatic: No Symptoms Reported (hx anemia) Endocrine: negative: Increased Thirst, Increased Urine, Unexplained Weight Gain , Unexplained Weight Loss Psychiatric: No Symptoms Reported All Other Systems: Reviewed and Negative PE - Vitals Vital Signs: Temp Pulse Pulse Resp BP BP BP 07/09/17 19:30 45 L 22 83/51 07/09/17 19:00 47 L 24 83/48 07/09/17 18:39 44 L 78/48 07/09/17 18:01 44 L 20 95/52 07/09/17 17:52 43 L 22 87/51 07/09/17 17:17 59 L 20 132/63 07/09/17 17:09 96.9 F L 99 H 20 97/49 04/30/17 10:00 160/75 160/75 04/27/17 06:00 177/74 Pulse Ox 07/09/17 19:30 100 07/09/17 19:00 97 07/09/17 18:39 100 07/09/17 18:01 100 07/09/17 17:52 99 07/09/17 17:17 97 07/09/17 17:09 47 L 04/30/17 10:00 04/27/17 06:00 - General Limitations: Altered Mental Status General Appearance: Lethargic, Other (awake and oriented on arrival but very weak, answers slowly but appropriately) - Head Head Exam: Normal Inspection, Atraumatic - Eyes Pupils: Regular, Round: Bilateral (pupils seem a little small, reactive) - ENT ENT Exam: Normal Exam, Normal Oropharynx External Ear Exam: Normal External Inspection Mouth Exam: Normal Inspection Throat Exam: Normal Inspection. negative: Tonsillar Erythema, Tonsillomegaly - Neck Neck Exam: Normal Inspection, Full ROM, Trachea Midline. negative: Tenderness, Meningismus - Chest Chest Inspection: Normal Inspection, Symmetric Chest Wall Rise. negative: Tenderness - Respiratory Respiratory Exam: Normal Lung Sounds Bilat. negative: Accessory Muscle Use, Chest Wall Tenderness, Prolonged Expiratory Phase, Respiratory Distress Respiratory Exam: Bilateral Clear to Auscultation - Cardiovascular Cardiovascular Exam: Bradycardia (HR 45-50 on arrival, spontaneously increased to 50s-60s shortly after arrival) - Abdominal Exam Abdominal Exam: Normal Inspection, Normal Bowel Sounds, Soft. negative: Tenderness, Guarding, Rebound - Extremities Extremities Exam: Normal Inspection, Full ROM, Normal Capillary Refill. negative: Edema - Neurological Neurological Exam: Reflexes Normal Patient Oriented To: Person, Place Cranial Nerve Exam: EOM Function (II, III, IV, ): Normal, Facial Sensation (V) : Normal, Facial Palsy (VII): Normal, Gag reflex (XI): Normal, Tongue Deviation : Normal ROR - Labs Reviewed Laboratory Results Reviewed?: Yes (lactic 2.7, cardiacs normal, BNP 175, ETOH - , acetone small.) Result Diagrams: 07/09/17 17:00 07/09/17 17:00 Laboratory: WBC 10.6 X10^3/uL (3.6-10.0) H 07/09/17 17:00 RBC 3.59 X10^6/uL (3.5-5.4) 07/09/17 17:00 Hgb 10.1 g/dL (12.0-16.0) L 07/09/17 17:00 Hct 31.2 % (36.0-47.0) L 07/09/17 17:00 MCV 87.1 fL (80.0-100.0) 07/09/17 17:00 MCH 28.2 pg (27.0-34.0) 07/09/17 17:00 MCHC 32.3 g/dL (33.0-35.0) L 07/09/17 17:00 RDW 14.1 % (11.6-16.5) 07/09/17 17:00 Plt Count 307 X10^3/uL (150.0-450.0) 07/09/17 17:00 MPV 9.5 fL (7.4-11.0) 07/09/17 17:00 Neut % 65.2 % (42.0-75.0) 07/09/17 17:00 Lymph % 24.3 % (21.0-51.0) 07/09/17 17:00 [place] % 7.2 % (0.0-13.0) 07/09/17 17:00 Eos % 2.7 % (0.9-2.9) 07/09/17 17:00 Baso % 0.6 % (0.2-1.0) 07/09/17 17:00 Neut # 6.9 x10^3/uL (2.2-4.8) H 07/09/17 17:00 Lymph # 2.6 X10^3/uL (1.3-2.9) 07/09/17 17:00 [place] # 0.8 x10^3/uL (0.3-0.8) 07/09/17 17:00 Eos # 0.3 x10^3/uL (0.0-0.2) H 07/09/17 17:00 Baso # 0.1 X10^3/uL (0.0-0.1) 07/09/17 17:00 Absolute Nucleated RBC 0.1 /100WBC 07/09/17 17:00 Sodium 137 mmol/L (136-145) 07/09/17 17:00 Corrected Sodium 142 mmol/L (136-145) 07/09/17 17:00 Potassium 4.3 mmol/L (3.5-5.1) 07/09/17 17:00 Chloride 103 mmol/L (98-107) 07/09/17 17:00 Carbon Dioxide 18.6 mmol/L (21-32) L 07/09/17 17:00 BUN 38 mg/dL (7-18) H 07/09/17 17:00 Creatinine 1.87 mg/dL (0.55-1.02) H 07/09/17 17:00 Est GFR (MDRD) Af Amer 33 (>60) L 07/09/17 17:00 Est GFR (MDRD) Non-Af 27 (>60) L 07/09/17 17:00 Glucose 305 mg/dL (65-99) H 07/09/17 17:00 Lactic Acid 2.7 mmol/L (0.4-2.0) H 07/09/17 17:00 Calcium 9.0 mg/dL (8.5-10.1) 07/09/17 17:00 Corrected Calcium TNP 07/09/17 17:00 Magnesium 1.4 mg/dL (1.7-2.9) L 07/09/17 17:00 Total Bilirubin 0.20 mg/dL (0.2-1.0) 07/09/17 17:00 AST 17 Units/L (15-37) 07/09/17 17:00 ALT 15 Units/L (12-78) 07/09/17 17:00 Alkaline Phosphatase 103 Units/L (46-116) 07/09/17 17:00 Ammonia 27 umol/L (11-32) 07/09/17 17:00 Creatine Kinase 67 Units/L (26-192) 07/09/17 17:00 CK-MB (CK-2) 1.2 ng/mL (0-4.0) 07/09/17 17:00 CK/CKMB % Calc 1.8 % (<4) 07/09/17 17:00 Troponin I < 0.02 ng/mL (0-1.5) 07/09/17 17:00 B-Natriuretic Peptide 175 pg/mL (0-79) H 07/09/17 17:00 Total Protein 6.5 g/dL (6.4-8.2) 07/09/17 17:00 Albumin 3.4 g/dL (3.4-5.0) 07/09/17 17:00 Globulin 3.1 g/dL (2.5-4.5) 07/09/17 17:00 Albumin/Globulin Ratio 1.1 Ratio (1.1-2.1) 07/09/17 17:00 Specimen Type Catherized urine 07/09/17 18:58 Urine Color Yellow (YELLOW) 07/09/17 18:58 Urine Appearance Clear (CLEAR) 07/09/17 18:58 Urine pH 5.0 (5.0 - 8.0) 07/09/17 18:58 Ur Specific [place] 1.020 (1.000-1.030) 07/09/17 18:58 Urine Protein 2+ (NEGATIVE) 07/09/17 18:58 Urine Glucose (UA) 2+ (NEGATIVE) 07/09/17 18:58 Urine Ketones 1+ (NEGATIVE) 07/09/17 18:58 Urine Occult Blood 1+ (NEGATIVE) 07/09/17 18:58 Urine Nitrite Negative (NEGATIVE) 07/09/17 18:58 Urine Bilirubin 1+ (NEGATIVE) 07/09/17 18:58 Urine Urobilinogen Normal (NORMAL) 07/09/17 18:58 Ur Leukocyte Esterase 1+ (NEGATIVE) 07/09/17 18:58 Urine RBC Rare /HPF (NEGATIVE) 07/09/17 18:58 Urine WBC 0-2 /HPF (NEGATIVE) 07/09/17 18:58 Ur Squamous Epith Cells Rare /HPF (NEGATIVE) 07/09/17 18:58 Amorphous Sediment 1+ /HPF (NEGATIVE) 18 18:58 Urine Bacteria Negative /HPF (NEGATIVE) 18 18:58 Hyaline Casts Moderate /LPF (NEGATIVE) 18 18:58 Ur Culture Indicated? No/not indicated 07/09/17 18:58 Urine Opiates Screen Positive (NEG=<300) A 07/09/17 18:58 Urine Methadone Screen Negative (NEG=<300) 07/09/17 18:58 Ur Barbiturates Screen Negative (NEG=<200) 07/09/17 18:58 Ur Phencyclidine Scrn Negative (NEG=<25) 07/09/17 18:58 Ur Amphetamines Screen Negative (NEG=<1000) 07/09/17 18:58 U Benzodiazepines Scrn Negative (NEG=<200) 07/09/17 18:58 Urine Cocaine Screen Negative (NEG=<300) 07/09/17 18:58 U Marijuana (THC) Screen Negative (NEG=<50) 07/09/17 18:58 Ethyl Alcohol mg/dL < 3 mg/dL (0-19.9) 07/09/17 17:00 Acetone, Semi-Quant Small (NEGATIVE) H 07/09/17 17:00 - XRAY XRAY Interpreted by: Radiologist (nothing acute on CXR. CT head nonacute) - EKG Rate: 61 (drops into 40's) [place]: Normal Rhythm: NSR Block: None Hypertrophy: None ST: Normal (no STT changes suggesting ischemia) - Diagnosis Discharge Problem: Near syncope, Diabetes, Bradycardia with 41-50 beats per minute - Discharge Plan Condition: Stable - Follow ups/Referrals Follow ups/Referrals: Shamir Skelton [Primary Care Provider] - 3 days - Instructions Additional Notes - Additional Notes Additional Notes: Spoke with Dr Puckett at [facility] and reviewed pt's symptoms and w/u results. He agrees to accept pt in transfer to [facility]. T[facility] first but [facility]. Told pt she probably needs pacemaker but cards evaluation needed first
--- NOTE | 2017-07-09 17:33 | CT ---
HISTORY: Altered mental status Study: CT of the head Comparison: None Technique: Serial axial images were obtained from the skullbase to the vertex without infusion of IV contrast. Findings: The ventricles, sulci, and cisterns demonstrate an appearance consistent with a cdyr-ll-dwuipffa degr ee of generalized atrophy. Patchy areas of decreased attenuation within the periventricular, subcorti [place], and subinsular white matter suggest changes of chronic small vessel ischemic disease. If symptom s or clinical concern persist recommend continued follow-up for further evaluation. IMPRESSION: No evidence of acute intracranial abnormality is appreciated. Mild to moderate generalized atrophy with findings consistent with changes of chronic small vessel is chemic disease. Reported By:
[2017-07-09 17:50] LABS: AMMONIA 27 umol/L (11-32)
[2017-07-09] MEDS ORDERED: ATROPINE SULFATE ABBOJECT ONE (17:50)
[2017-07-09 17:55] LABS: LACTIC ACID 2.7 mmol/L (0.4-2.0)
[2017-07-09 17:56] LABS: BLOOD UREA NITROGEN 38 mg/dL (7-18); CARBON DIOXIDE 18.6 mmol/L (21-32); CHLORIDE 103 mmol/L (98-107); COR NA(FOR HYPERGLY) 142 mmol/L (136-145); CREATININE 1.87 mg/dL (0.55-1.02); SODIUM 137 mmol/L (136-145); TROPONIN I < 0.02 ng/mL (0-1.5); eGFR BLACK RACES 33 (>60); eGFR NON BLACK RACES 27 (>60)
[2017-07-09] MEDS ORDERED: ATROPINE SULFATE ABBOJECT IVP ONE (17:57)
[2017-07-09 17:59] LABS: SERUM ACETONE SMALL (NEGATIVE)
[2017-07-09] MEDS ORDERED: NS 1000 ML 1,000 ML IV SCH ×2 (18:00→20:00)
[2017-07-09 18:01] LABS: ALANINE AMINOTRANSFERASE 15 Units/L (12-78); ALBUMIN 3.4 g/dL (3.4-5.0); ALKALINE PHOSPHATASE 103 Units/L (46-116); ASPARTATE AMINO TRANSFERASE 17 Units/L (15-37); B-TYPE NATRIURETIC PEPTIDE 175 pg/mL (0-79); CKMB % 1.8 % (<4); CREATINE KINASE 67 Units/L (26-192); CREATINE KINASE MB 1.2 ng/mL (0-4.0); MAGNESIUM 1.4 mg/dL (1.7-2.9); TOTAL PROTEIN 6.5 g/dL (6.4-8.2)
[2017-07-09 18:03] LABS: BLOOD ALCOHOL < 3 mg/dL (0-19.9)
[2017-07-09] MEDS ORDERED: NS 1000 ML 1,000 ML ONE (18:27)
[2017-07-09] MEDS ORDERED: LEVAQUIN PREMIX IV 500 MG 500 MG/100 ML BAG IV ONE ×2 (18:28→18:35)
[2017-07-09 18:35] VITALS: BMI 25.2
[2017-07-09] MEDS ORDERED: NS 1000 ML 1,000 ML IV ONE (18:35)
[2017-07-09 18:59] LABS: BASOPHILS # (AUTO) 0.1 X10^3/uL (0.0-0.1); BASOPHILS % (AUTO) 0.6 % (0.2-1.0); EOSINOPHILS # (AUTO) 0.3 x10^3/uL (0.0-0.2); EOSINOPHILS % (AUTO) 2.7 % (0.9-2.9); HEMATOCRIT 31.2 % (36.0-47.0); HEMOGLOBIN 10.1 g/dL (12.0-16.0); LYMPHOCYTES # (AUTO) 2.6 X10^3/uL (1.3-2.9); LYMPHOCYTES % (AUTO) 24.3 % (21.0-51.0); MEAN CORPUSCULAR HEMOGLOBIN 28.2 pg (27.0-34.0); MEAN CORPUSCULAR HGB CONC 32.3 g/dL (33.0-35.0); MEAN CORPUSCULAR VOLUME 87.1 fL (80.0-100.0); MEAN PLATELET VOLUME 9.5 fL (7.4-11.0); MONOCYTES # (AUTO) 0.8 x10^3/uL (0.3-0.8); MONOCYTES % (AUTO) 7.2 % (0.0-13.0); NEUTROPHILS # (AUTO) 6.9 x10^3/uL (2.2-4.8); NEUTROPHILS % (AUTO) 65.2 % (42.0-75.0); PLATELET COUNT 307 X10^3/uL (150.0-450.0); RED BLOOD COUNT 3.59 X10^6/uL (3.5-5.4); RED CELL DISTRIBUTION WIDTH 14.1 % (11.6-16.5); WHITE BLOOD COUNT 10.6 X10^3/uL (3.6-10.0)
[2017-07-09] MEDS ORDERED: TORADOL 15 MG VIAL IVP ONE (19:06)
[2017-07-09] MEDS ORDERED: TORADOL 15 MG VIAL ONE (19:15)
[2017-07-09 19:25] LABS: BILIRUBIN,URINE 1+ (NEGATIVE); BLOOD/HEMOGLOBIN,URINE 1+ (NEGATIVE); GLUCOSE, URINE 2+ (NEGATIVE); KETONES,URINE 1+ (NEGATIVE); LEUKOCYTE ESTERASE ,URINE 1+ (NEGATIVE); NITRITES,URINE NEGATIVE (NEGATIVE); PROTEIN,URINE 2+ (NEGATIVE); UROBILINOGEN,URINE NORMAL (NORMAL)
[2017-07-09 19:35] LABS: AMORPHOUS SEDIMENT,UR 1+ /HPF (NEGATIVE); APPEARANCE,URINE CLEAR (CLEAR); BACTERIA,URINE NEGATIVE /HPF (NEGATIVE); COLOR,URINE YELLOW (YELLOW); HYALINE CASTS, URINE MODERATE /LPF (NEGATIVE); RBC,URINE RARE /HPF (NEGATIVE); SQUAMOUS EPITHELIAL CELL,UR RARE /HPF (NEGATIVE)
[2017-07-09 20:57] VITALS: BP 112/58
== END 2017-07-09 21:00 | disposition short-term general hospital (02) ==
LOC: ER 17:00
DX: R55 Syncope and collapse (principal); E11.9 Type 2 diabetes mellitus without complications; R00.1 Bradycardia, unspecified
CPT/HCPCS: 36415; 51702; 70450; 71045; 80053; 80307; 80320; 81001; 82009; 82140; 82550; 82553; 83605; 83735; 83880; 84484; 85025; 87040; 93005; 93010; 93041; 96365; 96367; 96374; 96375; 99283; 99285; A4222; G0434; G6040; J1956; J2310

== ENCOUNTER 2017-07-15 14:24 | Emergency (ER) | payer OTHER ==
[2017-07-15 14:31] VITALS: BMI 20.2
[2017-07-15 15:11] LABS: BILIRUBIN,URINE NEGATIVE (NEGATIVE); BLOOD/HEMOGLOBIN,URINE 1+ (NEGATIVE); GLUCOSE, URINE 2+ (NEGATIVE); KETONES,URINE NEGATIVE (NEGATIVE); LEUKOCYTE ESTERASE ,URINE NEGATIVE (NEGATIVE); NITRITES,URINE NEGATIVE (NEGATIVE); PROTEIN,URINE 2+ (NEGATIVE); UROBILINOGEN,URINE NORMAL (NORMAL)
[2017-07-15 15:18] LABS: APPEARANCE,URINE SLIGHTLY HAZY (CLEAR); COLOR,URINE YELLOW (YELLOW)
[2017-07-15 15:20] LABS: BACTERIA,URINE NEGATIVE /HPF (NEGATIVE); RBC,URINE RARE /HPF (NEGATIVE); SQUAMOUS EPITHELIAL CELL,UR FEW /HPF (NEGATIVE)
[2017-07-15] MEDS ORDERED: CATAPRES TAB 0.1 MG PO ONE ×2 (15:23→16:15)
[2017-07-15] MEDS ORDERED: CATAPRES TAB 0.1 MG ONE ×2 (15:24→16:15)
--- NOTE | 2017-07-15 16:47 | DR.HTN ---
HPI - Time Seen Time seen: 16:40 - Primary Care Physician Primary Care Physician: MAX - HPI Comment HPI Comment: PATIENT RECENTLY DISCHARGE FROM HOSPITAL IN [facility] IN [place]. SHE HAD BRADYCARDIA DUE TO MEDICATIONS SHE WAS TAKEN FOR BP. THESE MEDS WERE D/C AND NEW MEDS STARTED. STILL ADJUSTING MEDS, BUT BP CONSTANTLY ELEVATED. HOME HEALTH NURSE TOLD FAMILY TO BRING HER TO THE ED FOR EVALUATION. - Complaints Chief Complaint Doctors Comments: ELEVATED BLOOD PRESSURE WITH LIGHT HEADACHE. Chief Complaint:: PT. C/O HIGH BLOOD PRESSURE AND HEADACHE. EQUAL OPPORTUNITY SPECIALIST, HOME HEALTH NURSE CHECKED B/P MANUALLY AND IT WAS 218/96. PT. WAS TRANSFERRED FROM OUR FACILITY WEDNESDAY TO [facility] DUE TO HYPOTENSION. WHILE PT. WAS IN THE HOSPITAL IN [place], B/P WAS REGULATED AND HER MEDICATIONS WERE CHANGED. - Reviewed Nurses Notes Reviewed: Yes - Source History Provided: Family Member - Mode of Arrival Mode of Arrival: Wheelchair - Timing Onset of Chief Complaint: 07/13/17 - Severity Severity: Moderate - Context Circumstances: Spontaneous Onset History of: Hypertension Treatment of HTN Prior to Arrival: Taking meds as prescribed, Rec. change in med regime Recent use of:: denies: Cocaine, Amphetamines, Cold medications - Associated Signs and Symptoms HTN Associated Signs and Symptoms: Headache (SLIGHT) PMH - PMH Past Medical History: Yes Past Medical History: Anemia, CVA, Diabetes, GERD, Hypertension Past Surgical History: Yes Surgical History: Hysterectomy, Tonsillectomy, Other Past Surgical History Comment: BACK SURGERY, STIMULATOR IN BACK - Family History History of Family Medical Conditions: Yes Family Medical History: Diabetes Mellitus, Cancer - Social History Does patient currently use any type of tobacco product: No Have you used tobacco products in the last 12 months: No Type of Tobacco Use: None Does any household member use tobacco: No Alcohol Use: None Do you use any recreational Drugs:: No Lives With: Family Lives Where: Home - infectious screening In the last 2 months have you had wt loss of >10#?: NO Have you had fever, night sweats or hemotysis?: No Have you traveled outside the country in the last 6 months?: No Isolation: Standard ROS - Review of Systems Constitutional: No Symptoms Reported Eyes: No Symptoms Reported ENTM: No Symptoms Reported Respiratoy: No Symptoms Reported Cardiovascular: No Symptoms Reported Gastrointestinal/Abdominal: No Symptoms Reported Genitourinary: No Symptoms Reported Neurological: No Symptoms Reported Musculoskeletal: No Symptoms Reported Integumentary: No Symptoms Reported Hematologic/Lymphatic: No Symptoms Reported Endocrine: No Symptoms Reported Psychiatric: No Symptoms Reported All Other Systems: Reviewed and Negative PE - Vital Signs Vitals: Temperature 99.9 F Pulse Rate [Left Brachial] 62 Pulse Rate 98 Respiratory Rate 16 Blood Pressure [Right Arm] 172/81 Blood Pressure [Left Arm] 181/79 Blood Pressure 236/101 O2 Sat by Pulse Oximetry 97 - General Limitations: No Limitations General Appearance: Alert - Head Head Exam: Normal Inspection - Eyes Eye exam: Normal Appearance Pupils: Regular, Round: Bilateral, Reactive: Bilateral Sclera/Conjunctival: Normal Inspection: Bilateral - ENT ENT Exam: Normal Oropharynx, Normal External Ear Exam, TM's Normal Bilaterally - Neck Neck Exam: Normal Inspection. negative: Tenderness, Meningismus, Lymphadenopathy - Chest Chest Inspection: Symmetric Chest Wall Rise - Respiratory Respiratory Exam: Normal Lung Sounds Bilat Respiratory Exam: Bilateral Clear to Auscultation - Cardiovascular Cardiovascular Exam: Regular Rate, Normal Rhythm, Normal Heart Sounds - Abdominal Exam Abdominal Exam: Normal Bowel Sounds, Soft. negative: Tenderness - Extremities Extremities Exam: Normal Inspection - Back Back Exam: Normal Inspection - Neurologic Neurological Exam: Alert, Oriented X3 Speech: Fluid Speech Cranial Nerve Exam: EOM Function (II, III, IV, ): Normal, Facial Sensation (V) : Normal, Facial Palsy (VII): Normal, Gag reflex (XI): Normal, Tongue Deviation : Normal Upper Motor Neuron Exam: Babinski Sign: Normal - Psychiatric Psychiatric Exam: Normal Affect, Normal Mood - Skin Skin Exam: Normal Color MDM - Additional Information Obtained Additional Information Obtained From: Family - Differential Diagnosis Differential Diagnosis: Hyertension, essential Course - Treatment Treatment: SEE ORDERS. CLONIDINE PO IN ED. BP IMPROVING. - Reevaluation 1st: Improved - Education/Counseling Education/Counseling: Patient, Family, Education Educated On: Treatment, Diagnosis, Needs for Follow Up ROR - Labs Reviewed Laboratory: Specimen Type Clean catch urine 07/15/17 14:57 Urine Color Yellow (YELLOW) 07/15/17 14:57 Urine Appearance Slightly hazy (CLEAR) 07/15/17 14:57 Urine pH 7.0 (5.0 - 8.0) 07/15/17 14:57 Ur Specific [place] 1.010 (1.000-1.030) 07/15/17 14:57 Urine Protein 2+ (NEGATIVE) 07/15/17 14:57 Urine Glucose (UA) 2+ (NEGATIVE) 07/15/17 14:57 Urine Ketones Negative (NEGATIVE) 07/15/17 14:57 Urine Occult Blood 1+ (NEGATIVE) 07/15/17 14:57 Urine Nitrite Negative (NEGATIVE) 07/15/17 14:57 Urine Bilirubin Negative (NEGATIVE) 07/15/17 14:57 Urine Urobilinogen Normal (NORMAL) 07/15/17 14:57 Ur Leukocyte Esterase Negative (NEGATIVE) 07/15/17 14:57 Urine RBC Rare /HPF (NEGATIVE) 07/15/17 14:57 Urine WBC Rare /HPF (NEGATIVE) 07/15/17 14:57 Ur Squamous Epith Cells Few /HPF (NEGATIVE) 07/15/17 14:57 Urine Bacteria Negative /HPF (NEGATIVE) 07/15/17 14:57 Ur Culture Indicated? No/not indicated 07/15/17 14:57 - Diagnosis Discharge Problem: Hypertension Qualifiers: Hypertension type: essential hypertension Qualified Code(s): I10 - Essential ( primary) hypertension - Discharge Plan Disposition: HOME, SELF-CARE Condition: Stable Prescriptions: Clonidine HCl 0.1 mg PO DAILY #10 tablet - Follow ups/Referrals Follow ups/Referrals: Shamir Skelton [Primary Care Provider] - 3 days - Instructions Instructions: Hypertension, Tkce-md-Lche Additional Instructions: RETURN TO ED IF WORSE.
[2017-07-15 17:33] VITALS: BP 172/81
== END 2017-07-15 17:46 | disposition home or self-care (01) ==
LOC: ER 14:36
DX: I10 Essential (primary) hypertension (principal)
CPT/HCPCS: 81001; 99282; 99284

== ENCOUNTER 2017-07-16 13:14 | Emergency (ER) | payer OTHER ==
[2017-07-16 13:20] VITALS: BMI 20.2
[2017-07-16] MEDS ORDERED: CATAPRES TAB 0.1 MG PO ONE (14:04)
--- NOTE | 2017-07-16 14:04 | DR.GENAD ---
HPI - PCP Primary Care Physician: MAX - Complaint/Symptoms Chief Complaint:: PT'S FAMILY C/O HIGH BLOOD PRESSURE. PT WAS SEEN IN THE ER YESTERDAY DUE TO HTN. PT'S FAMILY STATES PT'S B/P WAS NOTED TO BE 220/82 AT HOME. THEY CALLED PCP AND WAS TOLD TO COME BACK TO THE ER DEPT. - Source History Provided: Patient - Mode of Arrival Mode of Arrival: Wheelchair - Timing Onset of Chief Complaint: 07/16/17 PMH - PMH Past Medical History: Yes Past Medical History: Anemia, CVA, Diabetes, GERD, Hypertension Past Surgical History: Yes Surgical History: Hysterectomy, Tonsillectomy, Other - Family History History of Family Medical Conditions: Yes Family Medical History: Diabetes Mellitus, Cancer - Social History Does any household member use tobacco: No Alcohol Use: None Do you use any recreational Drugs:: No Lives With: Alone Lives Where: Home - infectious screening In the last 2 months have you had wt loss of >10#?: NO Have you had fever, night sweats or hemotysis?: No Have you traveled outside the country in the last 6 months?: No Isolation: Standard PE - Vital Signs Vitals: Temperature 99.8 F Pulse Rate 78 Respiratory Rate 20 Blood Pressure [Right Arm] 172/81 Blood Pressure [Left Arm] 181/79 Blood Pressure 163/82 O2 Sat by Pulse Oximetry 98 - Discharge Plan Condition: Stable - Follow ups/Referrals Follow ups/Referrals: Shamir Skelton [Primary Care Provider] - 3 days - Instructions
[2017-07-16] MEDS ORDERED: CATAPRES TAB 0.1 MG ONE (14:09)
[2017-07-16 14:44] VITALS: BP 186/82
== END 2017-07-16 15:04 | disposition home or self-care (01) ==
LOC: ER 13:23
DX: I10 Essential (primary) hypertension (principal)
CPT/HCPCS: 99282

== ENCOUNTER 2017-08-16 10:26 | Inpatient (IN) | payer OTHER ==
[2017-08-16] MEDS ORDERED: CATAPRES-TTS-3 TD SCH (11:03)
[2017-08-16] MEDS: ZESTRIL TAB 10 MG PO SCH ×2 (11:15→20:34)
[2017-08-16] MEDS ORDERED: ZESTRIL TAB 20 MG ONE (12:21)
[2017-08-16 12:24] LABS: BASOPHILS % (AUTO) 0.6 % (0.2-1.0); EOSINOPHILS # (AUTO) 0.2 x10^3/uL (0.0-0.2); HEMATOCRIT 33.1 % (36.0-47.0); HEMOGLOBIN 10.8 g/dL (12.0-16.0); LYMPHOCYTES # (AUTO) 1.7 X10^3/uL (1.3-2.9); LYMPHOCYTES % (AUTO) 21.8 % (21.0-51.0); MEAN CORPUSCULAR HEMOGLOBIN 27.8 pg (27.0-34.0); MEAN CORPUSCULAR HGB CONC 32.8 g/dL (33.0-35.0); MEAN CORPUSCULAR VOLUME 84.8 fL (80.0-100.0); MEAN PLATELET VOLUME 8.7 fL (7.4-11.0); MONOCYTES # (AUTO) 0.5 x10^3/uL (0.3-0.8); MONOCYTES % (AUTO) 6.1 % (0.0-13.0); NEUTROPHILS # (AUTO) 5.4 x10^3/uL (2.2-4.8); NEUTROPHILS % (AUTO) 68.5 % (42.0-75.0); PLATELET COUNT 301 X10^3/uL (150.0-450.0); RED CELL DISTRIBUTION WIDTH 14.5 % (11.6-16.5); WHITE BLOOD COUNT 7.8 X10^3/uL (3.6-10.0)
[2017-08-16 12:27] LABS: BILIRUBIN,URINE NEGATIVE (NEGATIVE); BLOOD/HEMOGLOBIN,URINE 1+ (NEGATIVE); GLUCOSE, URINE NEGATIVE (NEGATIVE); KETONES,URINE NEGATIVE (NEGATIVE); LEUKOCYTE ESTERASE ,URINE 1+ (NEGATIVE); NITRITES,URINE NEGATIVE (NEGATIVE); PROTEIN,URINE 2+ (NEGATIVE); UROBILINOGEN,URINE NORMAL (NORMAL)
[2017-08-16 12:35] LABS: APPEARANCE,URINE CLEAR (CLEAR); BACTERIA,URINE NEGATIVE /HPF (NEGATIVE); COLOR,URINE YELLOW (YELLOW); RBC,URINE 0-5 /HPF (NONE SEEN); SQUAMOUS EPITHELIAL CELL,UR RARE /HPF (NEGATIVE)
[2017-08-16 12:38] VITALS: BMI 20.3
[2017-08-16] MEDS: ZESTRIL TAB 20 MG PO SCH (12:38)
[2017-08-16] MEDS: NORMODYNE TAB 200 MG PO SCH ×2 (12:43→20:35)
[2017-08-16 12:45] LABS: ALANINE AMINOTRANSFERASE 13 Units/L (12-78); ALBUMIN 3.8 g/dL (3.4-5.0); ALKALINE PHOSPHATASE 99 Units/L (46-116); ASPARTATE AMINO TRANSFERASE 15 Units/L (15-37); BLOOD UREA NITROGEN 29 mg/dL (7-18); CARBON DIOXIDE 25.2 mmol/L (21-32); CHLORIDE 105 mmol/L (98-107); CKMB % 1.8 % (<4); COR NA(FOR HYPERGLY) 141 mmol/L (136-145); CREATINE KINASE 91 Units/L (26-192); CREATINE KINASE MB 1.6 ng/mL (0-4.0); CREATININE 1.47 mg/dL (0.55-1.02); SODIUM 140 mmol/L (136-145); TOTAL PROTEIN 7.1 g/dL (6.4-8.2); TROPONIN I < 0.02 ng/mL (0-1.5); eGFR BLACK RACES 44 (>60); eGFR NON BLACK RACES 36 (>60)
[2017-08-16] MEDS: NS 1000 ML 1,000 ML IV SCH (13:26)
[2017-08-16] MEDS: MORPHINE SULFATE INJ 2 MG INJ IVP PRN (13:31)
[2017-08-16 15:33] LABS: CKMB % 1.7 % (<4); CREATINE KINASE 97 Units/L (26-192); CREATINE KINASE MB 1.6 ng/mL (0-4.0); TROPONIN I < 0.02 ng/mL (0-1.5)
[2017-08-16] MEDS: NORCO 10/325 TAB PO SCH ×2 (15:58→20:34)
--- NOTE | 2017-08-16 19:01 | RAD ---
HISTORY: Left shoulder pain Study: 3 views of the left shoulder. Comparison: Chest x-ray 07/09/2017 Findings: No acute fractures or dislocations. The glenohumeral articulation is normal in its appearance. No gr oss soft tissue abnormalities. The acromioclavicular joint is normal in appearance. There appears to be a old fracture of the left humeral head IMPRESSION: 1. No acute abnormality of the left shoulder. Reported By:
--- NOTE | 2017-08-16 19:02 | RAD ---
HISTORY: Neck pain Study: 6 views of the cervical spine. Comparison: None Findings: Severe multilevel degenerative disc disease with grade 1 retrolisthesis of C3 on C4. The vertebral body heights are normal. No prevertebral soft tissue swelling can be identified. The odontoid appear s intact. The lateral masses of C1 align with the body of C2. IMPRESSION: 1. Severe multilevel degenerative disc disease. Reported By:
[2017-08-16] MEDS: KLONOPIN TAB 0.5 MG PO SCH (20:34)
[2017-08-16 20:38] LABS: CKMB % 1.5 % (<4); CREATINE KINASE 79 Units/L (26-192); CREATINE KINASE MB 1.2 ng/mL (0-4.0); TROPONIN I < 0.02 ng/mL (0-1.5)
[2017-08-16] MEDS: CHECK PATCH XX SCH (21:00)
[2017-08-17] MEDS: NS 1000 ML 1,000 ML IV SCH ×2 (03:00→12:40)
[2017-08-17 06:24] LABS: ALANINE AMINOTRANSFERASE 13 Units/L (12-78); ALBUMIN 3.1 g/dL (3.4-5.0); ALKALINE PHOSPHATASE 83 Units/L (46-116); ASPARTATE AMINO TRANSFERASE 15 Units/L (15-37); BLOOD UREA NITROGEN 25 mg/dL (7-18); CALCIUM 8.4 mg/dL (8.5-10.1); CHLORIDE 110 mmol/L (98-107); COR CA(FOR HYPOALB) 9.1 mg/dL (8.5-10.1); CREATININE 1.39 mg/dL (0.55-1.02); SODIUM 141 mmol/L (136-145); eGFR BLACK RACES 47 (>60); eGFR NON BLACK RACES 39 (>60)
[2017-08-17 06:28] LABS: BASOPHILS # (AUTO) 0.1 X10^3/uL (0.0-0.1); EOSINOPHILS # (AUTO) 0.3 x10^3/uL (0.0-0.2); EOSINOPHILS % (AUTO) 4.1 % (0.9-2.9); HEMOGLOBIN 9.4 g/dL (12.0-16.0); LYMPHOCYTES % (AUTO) 29.6 % (21.0-51.0); MEAN CORPUSCULAR HEMOGLOBIN 28.6 pg (27.0-34.0); MEAN CORPUSCULAR HGB CONC 33.6 g/dL (33.0-35.0); MEAN PLATELET VOLUME 8.8 fL (7.4-11.0); MONOCYTES # (AUTO) 0.7 x10^3/uL (0.3-0.8); MONOCYTES % (AUTO) 9.6 % (0.0-13.0); NEUTROPHILS # (AUTO) 3.8 x10^3/uL (2.2-4.8); NEUTROPHILS % (AUTO) 55.7 % (42.0-75.0); PLATELET COUNT 276 X10^3/uL (150.0-450.0); RED CELL DISTRIBUTION WIDTH 13.9 % (11.6-16.5); WHITE BLOOD COUNT 6.9 X10^3/uL (3.6-10.0)
[2017-08-17] MEDS ORDERED: ZESTRIL TAB 20 MG ONE (08:23)
[2017-08-17] MEDS: ZESTRIL TAB 20 MG PO SCH (08:30)
[2017-08-17] MEDS: NORMODYNE TAB 200 MG PO SCH ×2 (08:30→21:00)
[2017-08-17] MEDS: NORCO 10/325 TAB PO SCH ×2 (08:32→20:52)
[2017-08-17] MEDS: CHECK PATCH XX SCH ×2 (08:32→21:00)
[2017-08-17] MEDS: NORVASC TAB 10 MG PO SCH (10:07)
--- NOTE | 2017-08-17 11:02 | DR.UPDATE ---
H&P Update History and Physical Update: WAS SEEN IN THE OFFICE ON 08/16/2017. SHE WAS ADMITTED FOR MALIGNANT HTN, LEFT SHOULDER PAIN, AND NECK PAIN. A H&P WAS COMPELTED PRIOR TO ADMISSION. PATIENT HAS BEEN SEEN AND EXAMINED WITH NO CHANGES NOTED TO H&P. Changes noted: NO Yes with the following:
[2017-08-17] MEDS ORDERED: SITAGLIPTIN PHOSPHATE 50 MG PO SCH (11:15)
[2017-08-17] MEDS: HYDROCHLOROTHIAZIDE 25 MG TAB PO SCH (12:40)
[2017-08-17] MEDS ORDERED: COLACE CAP 100 MG PO PRN (14:52)
[2017-08-17] MEDS ORDERED: MILK OF MAGNESIA PO PRN (14:52)
[2017-08-17] MEDS: KLONOPIN TAB 0.5 MG PO SCH (20:52)
[2017-08-17] MEDS: ZESTRIL TAB 10 MG PO SCH (21:00)
[2017-08-18 06:39] LABS: BASOPHILS # (AUTO) 0.1 X10^3/uL (0.0-0.1); BASOPHILS % (AUTO) 0.9 % (0.2-1.0); EOSINOPHILS # (AUTO) 0.4 x10^3/uL (0.0-0.2); HEMATOCRIT 30.6 % (36.0-47.0); HEMOGLOBIN 10.1 g/dL (12.0-16.0); LYMPHOCYTES # (AUTO) 1.7 X10^3/uL (1.3-2.9); LYMPHOCYTES % (AUTO) 21.8 % (21.0-51.0); MEAN CORPUSCULAR HEMOGLOBIN 28.1 pg (27.0-34.0); MEAN PLATELET VOLUME 9.9 fL (7.4-11.0); MONOCYTES # (AUTO) 0.7 x10^3/uL (0.3-0.8); MONOCYTES % (AUTO) 8.8 % (0.0-13.0); NEUTROPHILS % (AUTO) 63.5 % (42.0-75.0); PLATELET COUNT 211 X10^3/uL (150.0-450.0); RED CELL DISTRIBUTION WIDTH 14.3 % (11.6-16.5); WHITE BLOOD COUNT 7.8 X10^3/uL (3.6-10.0)
[2017-08-18] MEDS: NS 1000 ML 1,000 ML IV SCH ×2 (06:48→23:07)
[2017-08-18 07:13] LABS: PLATELET MORPHOLOGY COMMENT NORMAL (NORMAL)
[2017-08-18 07:22] LABS: ALBUMIN 3.2 g/dL (3.4-5.0); CALCIUM 8.6 mg/dL (8.5-10.1); CARBON DIOXIDE 20.8 mmol/L (21-32); COR CA(FOR HYPOALB) 9.2 mg/dL (8.5-10.1); CREATININE 1.2 mg/dL (0.55-1.02); TOTAL PROTEIN 6.3 g/dL (6.4-8.2)
[2017-08-18] MEDS ORDERED: ZESTRIL TAB 20 MG ONE ×2 (08:08→20:30)
[2017-08-18] MEDS: NORMODYNE TAB 200 MG PO SCH ×2 (08:14→21:18)
[2017-08-18] MEDS: HYDROCHLOROTHIAZIDE 25 MG TAB PO SCH (08:15)
[2017-08-18] MEDS: NORVASC TAB 10 MG PO SCH (08:15)
[2017-08-18] MEDS: ZESTRIL TAB 20 MG PO SCH ×2 (08:15→21:17)
[2017-08-18] MEDS: JANUVIA PO SCH (08:15)
[2017-08-18] MEDS: NORCO 10/325 TAB PO SCH ×2 (08:16→21:18)
[2017-08-18] MEDS: CHECK PATCH XX SCH ×2 (08:17→21:21)
--- NOTE | 2017-08-18 11:45 | PCM.PROG ---
Progress Note - Progress Note for Day of Date: 08/17/17 - Subjective Subjective: IS BEING TREATED FOR MALIGNANT HYPERTENSION. TODAY, SHE IS ALERT AND ORIENTED, SITTING UP IN BED ON MORNING ROUNDS. SHE REPORTS A HEADACHE TODAY. PATIENT REPORTS I FEEL LIKE I AM WEARING A TIGHT HAT ON MY HEAD. ON EXAMINATION, HEART IS REGULAR IN RATE AND RHYTHM. BILATERAL LUNGS ARE CLEAR THROUGHOUT. ABDOMEN IS ROUND, SOFT, AND NON-TENDER WITH NORMAL BOWEL SOUNDS NOTED IN ALL QUADRANTS. THERE IS NORMAL RANGE OF MOTION NOTED TO ALL EXTREMITIES. HER VITALS THIS MORNING ARE 97.6-69-20-100%-183/79. HER BLOOD PRESSURE HAS REMAINED ELEVATED THROUGHOUT THE NIGHT. LABS WERE OBTAINED THIS MORNING. ABNORMAL LAB VALUES INCLUDE THE FOLLOWING: RBC 3.30, HGB 9.4, HCT 28.0 , CHLORIDE 110, BUN 25, CREATININE 1.39, GFR 39, CALCIUM 8.4, TOTAL PROTEIN 6.0 , ALBUMIN 3.1. CARDIAC ENZYMES AND EKGS HAVE BEEN WITHIN NORMAL LIMITS. A SHOULDER XRAY WAS OBTAINED ON ADMISSION DUE TO SHOULDER PAIN AND REPORTED NO ACUTE ABNORMALITY OF THE LEFT SHOULDER. A C-SPINE XRAY WAS OBTAINED AND REPORED SEVERE MULTILEVEL DEGENERATIVE DISC DISEASE. TODAY, WE WILL START AMLODIPINE 10MG PO DAILY. WE WILL ALSO CONTINUE WITH LABETALOL, LISINOPRIL, AND CONTINUE HER HOME MEDICATION. AN ABDOMEN CTA WAS ORDERED FOR THIS MORNING TO ASSESS FOR RENAL ARTERY STENOISIS, HOWEVER, WE ARE UNABLE TO OBTAIN DUE TO DECREASED GFR. WE WILL FOLLOW UP WITH AM LABS AND CONTINUE TO MONITOR PATIENT. - Past Medical Family Social History Past Med/Fam/Surg Hx: No changes since H&P Allergies: Allergies No Known Allergies [NKA] Allergy (Verified 07/09/17 17:18) - Review of Systems ROS: No change since H&P - Vital Signs and I&O's Vital Signs: Temperature 97.5 F Pulse Rate [Apical] 72 Respiratory Rate 13 Blood Pressure [Right Arm] 240/105 Blood Pressure [Left Arm] 166/88 Blood Pressure 186/82 O2 Sat by Pulse Oximetry 99 Intake and Output: Intake & Output 08/15/17 08/16/17 08/17/17 08/18/17 11:59 11:59 11:59 11:59 Intake Total 1554 2939 Output Total 1200 400 Balance 354 8829 - Physical Exam Oriented: Normal Eyes: Normal Ear: Normal Nose: Normal Throat: Normal Respiratory: Normal Cardiovascular: Normal. negative: S3, S4, Murmur : Normal Auscultation: Bowel Sounds: Normal Palpation: Normal Tenderness: Normal Skin: Normal Musculoskeletal: Left, Shoulder, Arm Psychiatric: Normal Mood Description: Calm Speech Pattern: Clear, Appropriate - Laboratory and Diagnostics Result Diagrams: 08/18/17 06:08 08/18/17 06:08 Labs: Laboratory WBC 7.8 X10^3/uL (3.6-10.0) 08/18/17 06:08 RBC 3.60 X10^6/uL (3.5-5.4) 08/18/17 06:08 Hgb 10.1 g/dL (12.0-16.0) L 08/18/17 06:08 Hct 30.6 % (36.0-47.0) L 08/18/17 06:08 MCV 85.0 fL (80.0-100.0) 08/18/17 06:08 MCH 28.1 pg (27.0-34.0) 08/18/17 06:08 MCHC 33.0 g/dL (33.0-35.0) 08/18/17 06:08 RDW 14.3 % (11.6-16.5) 08/18/17 06:08 Plt Count 211 X10^3/uL (150.0-450.0) 08/18/17 06:08 Plt Count Comment Adequate (ADEQUATE) 08/18/17 06:08 MPV 9.9 fL (7.4-11.0) 08/18/17 06:08 Neut % 63.5 % (42.0-75.0) 08/18/17 06:08 Lymph % 21.8 % (21.0-51.0) 08/18/17 06:08 [place] % 8.8 % (0.0-13.0) 08/18/17 06:08 Eos % 5.0 % (0.9-2.9) H 08/18/17 06:08 Baso % 0.9 % (0.2-1.0) 08/18/17 06:08 Neut # 5.0 x10^3/uL (2.2-4.8) H 08/18/17 06:08 Lymph # 1.7 X10^3/uL (1.3-2.9) 08/18/17 06:08 [place] # 0.7 x10^3/uL (0.3-0.8) 08/18/17 06:08 Eos # 0.4 x10^3/uL (0.0-0.2) H 08/18/17 06:08 Baso # 0.1 X10^3/uL (0.0-0.1) 08/18/17 06:08 Absolute Nucleated RBC 0.0 /100WBC 08/18/17 06:08 Plt Clumps, EDTA Few 08/18/17 06:08 Plt Morphology Comment Normal (NORMAL) 08/18/17 06:08 RBC Morphology Normal (NORMAL) 08/18/17 06:08 Sodium 142 mmol/L (136-145) 08/18/17 06:08 Corrected Sodium 143 mmol/L (136-145) 08/18/17 06:08 Potassium 3.9 mmol/L (3.5-5.1) 08/18/17 06:08 Chloride 110 mmol/L (98-107) H 08/18/17 06:08 Carbon Dioxide 20.8 mmol/L (21-32) L 08/18/17 06:08 BUN 24 mg/dL (7-18) H 08/18/17 06:08 Creatinine 1.20 mg/dL (0.55-1.02) H 08/18/17 06:08 Est GFR (MDRD) Af Amer 55 (>60) L 08/18/17 06:08 Est GFR (MDRD) Non-Af 46 (>60) L 08/18/17 06:08 Glucose 139 mg/dL (65-99) H 08/18/17 06:08 POC Glucose (mg/dL) 141 mg/dL (65-99) H 08/18/17 11:24 Calcium 8.6 mg/dL (8.5-10.1) 08/18/17 06:08 Corrected Calcium 9.2 mg/dL (8.5-10.1) 08/18/17 06:08 Total Bilirubin 0.20 mg/dL (0.2-1.0) 08/18/17 06:08 AST 15 Units/L (15-37) 08/18/17 06:08 ALT 12 Units/L (12-78) 08/18/17 06:08 Alkaline Phosphatase 90 Units/L (46-116) 08/18/17 06:08 Creatine Kinase 79 Units/L (26-192) 08/16/17 19:50 CK-MB (CK-2) 1.2 ng/mL (0-4.0) 08/16/17 19:50 CK/CKMB % Calc 1.5 % (<4) 08/16/17 19:50 Troponin I < 0.02 ng/mL (0-1.5) 08/16/17 19:50 Total Protein 6.3 g/dL (6.4-8.2) L 08/18/17 06:08 Albumin 3.2 g/dL (3.4-5.0) L 08/18/17 06:08 Globulin 3.1 g/dL (2.5-4.5) 08/18/17 06:08 Albumin/Globulin Ratio 1.0 Ratio (1.1-2.1) L 08/18/17 06:08 Specimen Type Clean catch urine 08/16/17 12:15 Urine Color Yellow (YELLOW) 08/16/17 12:15 Urine Appearance Clear (CLEAR) 08/16/17 12:15 Urine pH 5.0 (5.0 - 8.0) 08/16/17 12:15 Ur Specific [place] 1.015 (1.000-1.030) 08/16/17 12:15 Urine Protein 2+ (NEGATIVE) 08/16/17 12:15 Urine Glucose (UA) Negative (NEGATIVE) 08/16/17 12:15 Urine Ketones Negative (NEGATIVE) 08/16/17 12:15 Urine Occult Blood 1+ (NEGATIVE) 08/16/17 12:15 Urine Nitrite Negative (NEGATIVE) 08/16/17 12:15 Urine Bilirubin Negative (NEGATIVE) 08/16/17 12:15 Urine Urobilinogen Normal (NORMAL) 08/16/17 12:15 Ur Leukocyte Esterase 1+ (NEGATIVE) 08/16/17 12:15 Urine RBC 0-5 /HPF (NONE SEEN) 08/16/17 12:15 Urine WBC 0-5 /HPF (NONE SEEN) 08/16/17 12:15 Ur Squamous Epith Cells Rare /HPF (NEGATIVE) 08/16/17 12:15 Urine Bacteria Negative /HPF (NEGATIVE) 08/16/17 12:15 Ur Culture Indicated? No/not indicated 08/16/17 12:15 - Plan (1) Malignant hypertension Status: Acute Plan: LISINOPRIL 20MG DAILY, LISINOPRIL 10MG HS, AMLODIPINE 10MG DAILY, HCTZ 25MG PO DAILY, CATAPRES PATCH, CONTINUE TO MONITOR
[2017-08-18] MEDS: KLONOPIN TAB 0.5 MG PO SCH (21:17)
[2017-08-19] MEDS: NS 1000 ML 1,000 ML IV SCH ×2 (06:00→16:51)
[2017-08-19 06:51] LABS: BASOPHILS % (AUTO) 0.6 % (0.2-1.0); EOSINOPHILS # (AUTO) 0.3 x10^3/uL (0.0-0.2); EOSINOPHILS % (AUTO) 4.1 % (0.9-2.9); HEMATOCRIT 31.3 % (36.0-47.0); HEMOGLOBIN 10.4 g/dL (12.0-16.0); LYMPHOCYTES # (AUTO) 2.1 X10^3/uL (1.3-2.9); LYMPHOCYTES % (AUTO) 31.2 % (21.0-51.0); MEAN CORPUSCULAR HEMOGLOBIN 28.4 pg (27.0-34.0); MEAN CORPUSCULAR HGB CONC 33.2 g/dL (33.0-35.0); MEAN CORPUSCULAR VOLUME 85.7 fL (80.0-100.0); MEAN PLATELET VOLUME 9.3 fL (7.4-11.0); MONOCYTES # (AUTO) 0.6 x10^3/uL (0.3-0.8); MONOCYTES % (AUTO) 8.6 % (0.0-13.0); NEUTROPHILS # (AUTO) 3.8 x10^3/uL (2.2-4.8); NEUTROPHILS % (AUTO) 55.5 % (42.0-75.0); PLATELET COUNT 315 X10^3/uL (150.0-450.0); RED BLOOD COUNT 3.65 X10^6/uL (3.5-5.4); WHITE BLOOD COUNT 6.8 X10^3/uL (3.6-10.0)
[2017-08-19 07:15] LABS: ALBUMIN 3.3 g/dL (3.4-5.0); CALCIUM 8.8 mg/dL (8.5-10.1); CARBON DIOXIDE 22.4 mmol/L (21-32); COR CA(FOR HYPOALB) 9.4 mg/dL (8.5-10.1); CREATININE 1.37 mg/dL (0.55-1.02); TOTAL PROTEIN 6.6 g/dL (6.4-8.2)
[2017-08-19] MEDS ORDERED: ZESTRIL TAB 20 MG ONE ×2 (08:20→20:27)
[2017-08-19] MEDS: NORCO 10/325 TAB PO SCH ×2 (08:47→21:09)
[2017-08-19] MEDS: ZESTRIL TAB 20 MG PO SCH ×2 (08:48→21:08)
[2017-08-19] MEDS: HYDROCHLOROTHIAZIDE 25 MG TAB PO SCH (08:48)
[2017-08-19] MEDS: NORVASC TAB 10 MG PO SCH (08:48)
[2017-08-19] MEDS: JANUVIA PO SCH (08:49)
[2017-08-19] MEDS: CHECK PATCH XX SCH ×2 (08:49→21:10)
[2017-08-19] MEDS: NORMODYNE TAB 200 MG PO SCH ×2 (08:49→21:09)
[2017-08-19] MEDS: MORPHINE SULFATE INJ 2 MG INJ IVP PRN ×2 (12:49→17:33)
[2017-08-19] MEDS: KLONOPIN TAB 0.5 MG PO SCH (21:09)
[2017-08-20] MEDS: NS 1000 ML 1,000 ML IV SCH (05:55)
[2017-08-20 06:40] LABS: BASOPHILS # (AUTO) 0.1 X10^3/uL (0.0-0.1); BASOPHILS % (AUTO) 0.7 % (0.2-1.0); EOSINOPHILS # (AUTO) 0.3 x10^3/uL (0.0-0.2); EOSINOPHILS % (AUTO) 4.6 % (0.9-2.9); HEMATOCRIT 28.3 % (36.0-47.0); HEMOGLOBIN 9.3 g/dL (12.0-16.0); LYMPHOCYTES # (AUTO) 2.1 X10^3/uL (1.3-2.9); LYMPHOCYTES % (AUTO) 29.5 % (21.0-51.0); MEAN CORPUSCULAR HEMOGLOBIN 28.1 pg (27.0-34.0); MEAN CORPUSCULAR VOLUME 85.2 fL (80.0-100.0); MEAN PLATELET VOLUME 9.7 fL (7.4-11.0); MONOCYTES # (AUTO) 0.6 x10^3/uL (0.3-0.8); MONOCYTES % (AUTO) 9.1 % (0.0-13.0); NEUTROPHILS % (AUTO) 56.1 % (42.0-75.0); PLATELET COUNT 264 X10^3/uL (150.0-450.0); RED BLOOD COUNT 3.32 X10^6/uL (3.5-5.4); RED CELL DISTRIBUTION WIDTH 14.3 % (11.6-16.5); WHITE BLOOD COUNT 7.2 X10^3/uL (3.6-10.0)
[2017-08-20 06:58] LABS: ALBUMIN 3.1 g/dL (3.4-5.0); CALCIUM 8.1 mg/dL (8.5-10.1); CARBON DIOXIDE 21.6 mmol/L (21-32); COR CA(FOR HYPOALB) 8.8 mg/dL (8.5-10.1); CREATININE 1.48 mg/dL (0.55-1.02)
[2017-08-20] MEDS ORDERED: ZESTRIL TAB 20 MG ONE (08:15)
[2017-08-20] MEDS: HYDROCHLOROTHIAZIDE 25 MG TAB PO SCH (08:35)
[2017-08-20] MEDS: NORCO 10/325 TAB PO SCH (08:35)
[2017-08-20] MEDS: JANUVIA PO SCH (08:35)
[2017-08-20] MEDS: NORVASC TAB 10 MG PO SCH (08:35)
[2017-08-20] MEDS: ZESTRIL TAB 20 MG PO SCH (08:35)
[2017-08-20] MEDS: CHECK PATCH XX SCH (08:36)
[2017-08-20] MEDS: NORMODYNE TAB 200 MG PO SCH (08:36)
[2017-08-20] MEDS: MORPHINE SULFATE INJ 2 MG INJ IVP PRN (12:46)
[2017-08-20 12:50] VITALS: BP 109/53
--- NOTE | 2017-08-20 13:38 | PCM.PROG ---
Progress Note - Progress Note for Day of Date: 08/18/17 - Subjective Subjective: IS BEING TREATED FOR MALIGNANT HYPERTENSION. TODAY, SHE IS ALERT AND ORIENTED, SITTING UP IN BED ON MORNING ROUNDS. SHE CONTINUES WITH A MILD HEADACHE THIS MORNING. ON EXAMINATION, HEART IS REGULAR IN RATE AND RHYTHM. BILATERAL LUNGS ARE CLEAR THROUGHOUT. ABDOMEN IS ROUND, SOFT, AND NON- TENDER WITH NORMAL BOWEL SOUNDS NOTED IN ALL QUADRANTS. THERE IS NORMAL RANGE OF MOTION NOTED TO ALL EXTREMITIES. HER VITALS THIS MORNING ARE 97.5-72-13-99- 166/88. LABS WERE OBTAINED THIS MORNING. ABNORMAL LAB VALUES INCLUDE THE FOLLOWING: HGB 10.1, HCT 30.6, CHLORIDE 110, BUN 24, CREATININE 1.20, GFR 46, GLUCOSE 139, TOTAL PROTEIN 6.3, ALBUMIN 3.2. BLOOD PRESSURE HAS REMAINED ELEVATED DESPITE THE ADDITION OF AMLODIPINE YESTERDAY. TODAY, WE WILL INCREASE LISINOPRIL TO 20MG PO BID. WE WILL ALSO OBTAIN AN ECHOCARDIOGRAM. OTHERWISE, WE WILL FOLLOW UP WITH AM LABS AND CONTINUE TO MONITOR PATIENT. - Past Medical Family Social History Past Med/Fam/Surg Hx: No changes since H&P Allergies: Allergies No Known Allergies [NKA] Allergy (Verified 07/09/17 17:18) - Review of Systems ROS: No change since H&P - Vital Signs and I&O's Vital Signs: Temperature 98 F Pulse Rate [Right Brachial] 60 Pulse Rate [Apical] 72 Respiratory Rate 18 Blood Pressure [Right Arm] 109/53 Blood Pressure [Left Arm] 166/88 Blood Pressure 186/82 O2 Sat by Pulse Oximetry 97 Intake and Output: Intake & Output 08/18/17 08/19/17 08/20/17 08/21/17 11:59 11:59 11:59 11:59 Intake Total 3310 2230 2300 Output Total 700 Balance 2610 2230 2300 - Physical Exam Oriented: Normal Eyes: Normal Ear: Normal Nose: Normal Throat: Normal Respiratory: Normal Cardiovascular: Normal. negative: S3, S4, Murmur : Normal Auscultation: Bowel Sounds: Normal Palpation: Normal Tenderness: Normal Skin: Normal Musculoskeletal: Left, Shoulder, Arm Psychiatric: Normal Mood Description: Calm Speech Pattern: Clear, Appropriate - Laboratory and Diagnostics Result Diagrams: 08/20/17 05:35 08/20/17 05:35 Labs: Laboratory WBC 7.2 X10^3/uL (3.6-10.0) 08/20/17 05:35 RBC 3.32 X10^6/uL (3.5-5.4) L 08/20/17 05:35 Hgb 9.3 g/dL (12.0-16.0) L 08/20/17 05:35 Hct 28.3 % (36.0-47.0) L 08/20/17 05:35 MCV 85.2 fL (80.0-100.0) 08/20/17 05:35 MCH 28.1 pg (27.0-34.0) 08/20/17 05:35 MCHC 33.0 g/dL (33.0-35.0) 08/20/17 05:35 RDW 14.3 % (11.6-16.5) 08/20/17 05:35 Plt Count 264 X10^3/uL (150.0-450.0) 08/20/17 05:35 Plt Count Comment Adequate (ADEQUATE) 08/18/17 06:08 MPV 9.7 fL (7.4-11.0) 08/20/17 05:35 Neut % 56.1 % (42.0-75.0) 08/20/17 05:35 Lymph % 29.5 % (21.0-51.0) 08/20/17 05:35 [place] % 9.1 % (0.0-13.0) 08/20/17 05:35 Eos % 4.6 % (0.9-2.9) H 08/20/17 05:35 Baso % 0.7 % (0.2-1.0) 08/20/17 05:35 Neut # 4.0 x10^3/uL (2.2-4.8) 08/20/17 05:35 Lymph # 2.1 X10^3/uL (1.3-2.9) 08/20/17 05:35 [place] # 0.6 x10^3/uL (0.3-0.8) 08/20/17 05:35 Eos # 0.3 x10^3/uL (0.0-0.2) H 08/20/17 05:35 Baso # 0.1 X10^3/uL (0.0-0.1) 08/20/17 05:35 Absolute Nucleated RBC 0.0 /100WBC 08/20/17 05:35 Plt Clumps, EDTA Few 08/18/17 06:08 Plt Morphology Comment Normal (NORMAL) 08/18/17 06:08 RBC Morphology Normal (NORMAL) 08/18/17 06:08 Sodium 140 mmol/L (136-145) 08/20/17 05:35 Corrected Sodium 141 mmol/L (136-145) 08/20/17 05:35 Potassium 4.1 mmol/L (3.5-5.1) 08/20/17 05:35 Chloride 107 mmol/L (98-107) 08/20/17 05:35 Carbon Dioxide 21.6 mmol/L (21-32) 08/20/17 05:35 BUN 31 mg/dL (7-18) H 08/20/17 05:35 Creatinine 1.48 mg/dL (0.55-1.02) H 08/20/17 05:35 Est GFR (MDRD) Af Amer 43 (>60) L 08/20/17 05:35 Est GFR (MDRD) Non-Af 36 (>60) L 08/20/17 05:35 Glucose 142 mg/dL (65-99) H 08/20/17 05:35 POC Glucose (mg/dL) 180 mg/dL (65-99) H 08/20/17 11:46 Calcium 8.1 mg/dL (8.5-10.1) L 08/20/17 05:35 Corrected Calcium 8.8 mg/dL (8.5-10.1) 08/20/17 05:35 Total Bilirubin 0.10 mg/dL (0.2-1.0) L 08/20/17 05:35 AST 15 Units/L (15-37) 08/20/17 05:35 ALT 12 Units/L (12-78) 08/20/17 05:35 Alkaline Phosphatase 85 Units/L (46-116) 08/20/17 05:35 Creatine Kinase 79 Units/L (26-192) 08/16/17 19:50 CK-MB (CK-2) 1.2 ng/mL (0-4.0) 08/16/17 19:50 CK/CKMB % Calc 1.5 % (<4) 08/16/17 19:50 Troponin I < 0.02 ng/mL (0-1.5) 08/16/17 19:50 Total Protein 6.0 g/dL (6.4-8.2) L 08/20/17 05:35 Albumin 3.1 g/dL (3.4-5.0) L 08/20/17 05:35 Globulin 2.9 g/dL (2.5-4.5) 08/20/17 05:35 Albumin/Globulin Ratio 1.1 Ratio (1.1-2.1) 08/20/17 05:35 Specimen Type Clean catch urine 08/16/17 12:15 Urine Color Yellow (YELLOW) 08/16/17 12:15 Urine Appearance Clear (CLEAR) 08/16/17 12:15 Urine pH 5.0 (5.0 - 8.0) 08/16/17 12:15 Ur Specific [place] 1.015 (1.000-1.030) 08/16/17 12:15 Urine Protein 2+ (NEGATIVE) 08/16/17 12:15 Urine Glucose (UA) Negative (NEGATIVE) 08/16/17 12:15 Urine Ketones Negative (NEGATIVE) 08/16/17 12:15 Urine Occult Blood 1+ (NEGATIVE) 08/16/17 12:15 Urine Nitrite Negative (NEGATIVE) 08/16/17 12:15 Urine Bilirubin Negative (NEGATIVE) 08/16/17 12:15 Urine Urobilinogen Normal (NORMAL) 08/16/17 12:15 Ur Leukocyte Esterase 1+ (NEGATIVE) 08/16/17 12:15 Urine RBC 0-5 /HPF (NONE SEEN) 08/16/17 12:15 Urine WBC 0-5 /HPF (NONE SEEN) 08/16/17 12:15 Ur Squamous Epith Cells Rare /HPF (NEGATIVE) 08/16/17 12:15 Urine Bacteria Negative /HPF (NEGATIVE) 08/16/17 12:15 Ur Culture Indicated? No/not indicated 08/16/17 12:15 - Plan (1) Malignant hypertension Status: Acute Plan: LISINOPRIL 20MG BID, AMLODIPINE 10MG DAILY, HCTZ 25MG PO DAILY, CATAPRES PATCH, CONTINUE TO MONITOR
== END 2017-08-20 13:15 | disposition home or self-care (01) | DRG 305 ==
LOC: UNDOADMOB 10:26 → ICU 10:26 → OBSVTOIN 08-18 09:00 → MED/SURG 08-18 11:40
PROVIDERS: ADMIT Internal Medicine; ATTEND Internal Medicine
DX: I10 Essential (primary) hypertension (principal); R07.89 Other chest pain; M25.512 Pain in left shoulder; M54.2 Cervicalgia; E11.65 Type 2 diabetes mellitus with hyperglycemia; R51 Headache
CPT/HCPCS: 36415; 72050; 73030; 80053; 81001; 82550; 82553; 84484; 85025; 93005; 93306; A4222; G8978; G8979; G0378; J2270

== ENCOUNTER → 2017-09-30 | Outpatient (CLI) | payer OTHER ==
[2017-09-30 10:43] LABS: CREATININE 2.21 mg/dL (0.55-1.02)
== END | disposition home or self-care (01) ==
LOC: RAD 10:13
PROVIDERS: ATTEND Internal Medicine
DX: I10 Essential (primary) hypertension (principal)
CPT/HCPCS: 36415; 82565; 84520

== ENCOUNTER 2017-10-20 10:33 | Inpatient (IN) | payer OTHER ==
--- NOTE | 2017-10-20 10:49 | DR.GENAD ---
HPI - PCP Primary Care Physician: Dr. Skelton - HPI Comment HPI Comment: SHE IS COUGHING FOR PAST FEW DAYS. NO FEVER. SLIGHT HEADACHE PRESENT. - Complaint/Symptoms Chief Complaint Doctors Comments: WEAKNESS, DIZZINESS AND NEAR SYNCOPAL FEELING WHILE AT THE [employer]. NO LOC BUT FELT FAINT. BP OBTAIN WAS LOW. Chief Complaint:: Pt states,"Around 9AM this morning I was outside the beauty shop and suddenly felt very weak and dizzy. My BP drops out a lot sometimes. "Denies LOC. States she feels much better now. - Nurses notes reviewed Nurses Notes Review: Yes - Source History Provided: Patient - Mode of Arrival Mode of Arrival: EMS - Timing Onset of Chief Complaint: 10/20/17 Came on: Suddenly - Duration Duration: Intermittent Duration: Hours - Severity Severity: Moderate PMH - PMH Past Medical History: Yes Past Medical History: CHF, Diabetes, Hypertension Past Surgical History: Yes Surgical History: Appendectomy, Hysterectomy Past Surgical History Comment: Back Surgery x 2 - Family History History of Family Medical Conditions: Yes Family Medical History: Hypertension - Social History Does patient currently use any type of tobacco product: No Have you used tobacco products in the last 12 months: No Type of Tobacco Use: None Does any household member use tobacco: No Alcohol Use: None Do you use any recreational Drugs:: No Lives With: Alone Lives Where: Home - infectious screening In the last 2 months have you had wt loss of >10#?: NO Have you had fever, night sweats or hemotysis?: No Have you traveled outside the country in the last 6 months?: No Isolation: Standard ROS - Review of Systems Constitutional: Weakness, Fatigue Eyes: No Symptoms Reported. negative: Eye Pain, Blurred Vision, Discharge, Photophobia, Diplopia ENTM: Nose Discharge, Nose Congestion. negative: Ear Pain, Throat Pain Respiratoy: Productive Cough, Short of Breath. negative: Wheezing, Hemoptysis Cardiovascular: No Symptoms Reported Gastrointestinal/Abdominal: No Symptoms Reported Genitourinary: No Symptoms Reported Neurological: Headache, Weakness, Dizziness Musculoskeletal: No Symptoms Reported Integumentary: No Symptoms Reported Hematologic/Lymphatic: No Symptoms Reported Endocrine: No Symptoms Reported All Other Systems: Reviewed and Negative PE - Vital Signs Vitals: Temperature 98.1 F Pulse Rate [Left Radial] 43 Pulse Rate 50 Respiratory Rate 18 Blood Pressure [Right Arm] 79/37 Blood Pressure [Left Arm] 166/88 Blood Pressure 93/44 O2 Sat by Pulse Oximetry 96 - General Limitations: No Limitations General Appearance: Alert - Head Head Exam: Normal Inspection - Eyes Eye exam: Normal Appearance - ENT ENT Exam: Normal External Ear Exam External Ear Exam: Normal External Inspection TM/Canal Exam: Left Normal Nose Exam: Normal Nose Exam Mouth Exam: Normal Inspection Throat Exam: Normal Inspection - Neck Neck Exam: Trachea Midline - Chest Chest Inspection: Symmetric Chest Wall Rise - Respiratory Respiratory Exam: Normal Lung Sounds Bilat Respiratory Exam: Bilateral Clear to Auscultation - Cardiovascular Cardiovascular Exam: Regular Rate, Normal Rhythm, Normal Heart Sounds - Abdominal Exam Abdominal Exam: Normal Bowel Sounds, Soft. negative: Tenderness - Extremities Extremities Exam: Normal Inspection - Back Back Exam: Normal Inspection - Neurologic Neurological Exam: Alert, Oriented X3 - Psychiatric Psychiatric Exam: Normal Affect, Normal Mood - Skin Skin Exam: Normal Color MDM - Additional Information Additional Information Obtained From: Family - Differential Diagnosis Differential Diagnosis: NEAR SYNCOPE, AMS, HYPOTENSION, SINUSITIS, BRONCHITIS, PNEUMONIA Course - Treatment Treatment: SEE ORDERS. - Consultation Consultation Comments: DISCUSS PATIENT WITH DR. KINGSTON. HE WILL ADMIT PATIENT. - Education/Counseling Education/Counseling: Patient, Family Educated On: Diagnosis ROR - Labs Reviewed Laboratory Results Reviewed?: Yes Result Diagrams: 10/21/17 05:44 10/21/17 05:44 Laboratory: WBC 9.7 X10^3/uL (3.6-10.0) 10/20/17 11:38 RBC 3.53 X10^6/uL (3.5-5.4) 10/20/17 11:38 Hgb 9.7 g/dL (12.0-16.0) L 10/20/17 11:38 Hct 29.7 % (36.0-47.0) L 10/20/17 11:38 MCV 84.1 fL (80.0-100.0) 10/20/17 11:38 MCH 27.4 pg (27.0-34.0) 10/20/17 11:38 MCHC 32.6 g/dL (33.0-35.0) L 10/20/17 11:38 RDW 15.3 % (11.6-16.5) 10/20/17 11:38 Plt Count 400 X10^3/uL (150.0-450.0) 10/20/17 11:38 MPV 8.6 fL (7.4-11.0) 10/20/17 11:38 Neut % (Auto) 75.0 % (42.0-75.0) 10/20/17 11:38 Lymph % (Auto) 18.0 % (21.0-51.0) L 10/20/17 11:38 [place] % (Auto) 5.5 % (0.0-13.0) 10/20/17 11:38 Eos % (Auto) 1.3 % (0.9-2.9) 10/20/17 11:38 Baso % (Auto) 0.2 % (0.2-1.0) 10/20/17 11:38 Neut # (Auto) 7.3 x10^3/uL (2.2-4.8) H 10/20/17 11:38 Lymph # (Auto) 1.8 X10^3/uL (1.3-2.9) 10/20/17 11:38 [place] # (Auto) 0.5 x10^3/uL (0.3-0.8) 10/20/17 11:38 Eos # (Auto) 0.1 x10^3/uL (0.0-0.2) 10/20/17 11:38 Baso # (Auto) 0.0 X10^3/uL (0.0-0.1) 10/20/17 11:38 Absolute Nucleated RBC 0.1 /100WBC 10/20/17 11:38 Sodium 137 mmol/L (136-145) 10/20/17 11:38 Corrected Sodium 139 mmol/L (136-145) 10/20/17 11:38 Potassium 4.6 mmol/L (3.5-5.1) 10/20/17 11:38 Chloride 104 mmol/L (98-107) 10/20/17 11:38 Carbon Dioxide 20.3 mmol/L (21-32) L 10/20/17 11:38 BUN 24 mg/dL (7-18) H 10/20/17 11:38 Creatinine 2.07 mg/dL (0.55-1.02) H 10/20/17 11:38 Est GFR (MDRD) Af Amer 29 (>60) L 10/20/17 11:38 Est GFR (MDRD) Non-Af 24 (>60) L 10/20/17 11:38 Glucose 178 mg/dL (65-99) H 10/20/17 11:38 Lactic Acid 2.6 mmol/L (0.4-2.0) H 10/20/17 11:38 Calcium 8.8 mg/dL (8.5-10.1) 10/20/17 11:38 Corrected Calcium TNP 10/20/17 11:38 Total Bilirubin 0.30 mg/dL (0.2-1.0) 10/20/17 11:38 AST 11 Units/L (15-37) L 10/20/17 11:38 ALT 14 Units/L (12-78) 10/20/17 11:38 Alkaline Phosphatase 103 Units/L (46-116) 10/20/17 11:38 Creatine Kinase 89 Units/L (26-192) 10/20/17 11:38 CK-MB (CK-2) < 1.0 ng/mL (0-4.0) 10/20/17 11:38 CK/CKMB % Calc 1.1 % (<4) 10/20/17 11:38 Troponin I < 0.02 ng/mL (0-1.5) 10/20/17 11:38 C-Reactive Protein 14.40 mg/L (0-3.0) H 10/20/17 11:38 Total Protein 7.4 g/dL (6.4-8.2) 10/20/17 11:38 Albumin 3.5 g/dL (3.4-5.0) 10/20/17 11:38 Globulin 3.9 g/dL (2.5-4.5) 10/20/17 11:38 Albumin/Globulin Ratio 0.9 Ratio (1.1-2.1) L 10/20/17 11:38 - XRAY XRAY Interpreted by: Radiologist XRAY Findings: REPORT DISCUSS WITH PATIENT AND HER FAMILY. - EKG [place]: Normal (EKG NOTED.) - Diagnosis Discharge Problem: Bradycardia, Bronchitis Hypotension Qualifiers: Hypotension type: unspecified hypotension type Qualified Code(s): I95.9 - Hypotension, unspecified - Discharge Plan Disposition: ADMITTED INPATIENT Condition: Stable - Follow ups/Referrals - Instructions
[2017-10-20] MEDS ORDERED: NS 1000 ML 1,000 ML IV ONE (11:20)
[2017-10-20] MEDS ORDERED: NS 1000 ML 1,000 ML ONE (11:23)
--- NOTE | 2017-10-20 11:39 | RAD ---
HISTORY: Cough, weakness, dizziness Study: AP portable chest Comparison: 07/09/2017 Findings: The lungs are clear. Mild cardiomegaly is noted. The patient is status post median sternotomy. Renny ateral breast implants are present. A neural stimulator electrode overlies the mid thoracic spine. There appears to been remote trauma to the left shoulder. A prominent skin fold is noted on the righ t. IMPRESSION: 1. Mild cardiomegaly without evidence of failure. 2. No radiographic evidence of acute cardiopulmonary disease or significant change is noted when com pared to the prior examination. Reported By:
[2017-10-20 11:55] LABS: BASOPHILS % (AUTO) 0.2 % (0.2-1.0); EOSINOPHILS # (AUTO) 0.1 x10^3/uL (0.0-0.2); EOSINOPHILS % (AUTO) 1.3 % (0.9-2.9); HEMATOCRIT 29.7 % (36.0-47.0); HEMOGLOBIN 9.7 g/dL (12.0-16.0); LYMPHOCYTES # (AUTO) 1.8 X10^3/uL (1.3-2.9); MEAN CORPUSCULAR HEMOGLOBIN 27.4 pg (27.0-34.0); MEAN CORPUSCULAR HGB CONC 32.6 g/dL (33.0-35.0); MEAN CORPUSCULAR VOLUME 84.1 fL (80.0-100.0); MEAN PLATELET VOLUME 8.6 fL (7.4-11.0); MONOCYTES # (AUTO) 0.5 x10^3/uL (0.3-0.8); MONOCYTES % (AUTO) 5.5 % (0.0-13.0); NEUTROPHILS # (AUTO) 7.3 x10^3/uL (2.2-4.8); PLATELET COUNT 400 X10^3/uL (150.0-450.0); RED BLOOD COUNT 3.53 X10^6/uL (3.5-5.4); RED CELL DISTRIBUTION WIDTH 15.3 % (11.6-16.5); WHITE BLOOD COUNT 9.7 X10^3/uL (3.6-10.0)
[2017-10-20 12:11] LABS: LACTIC ACID 2.6 mmol/L (0.4-2.0)
[2017-10-20 12:15] LABS: BLOOD UREA NITROGEN 24 mg/dL (7-18); CALCIUM 8.8 mg/dL (8.5-10.1); CARBON DIOXIDE 20.3 mmol/L (21-32); CHLORIDE 104 mmol/L (98-107); COR NA(FOR HYPERGLY) 139 mmol/L (136-145); CREATININE 2.07 mg/dL (0.55-1.02); SODIUM 137 mmol/L (136-145); TROPONIN I < 0.02 ng/mL (0-1.5); eGFR BLACK RACES 29 (>60); eGFR NON BLACK RACES 24 (>60)
[2017-10-20 12:20] LABS: ALANINE AMINOTRANSFERASE 14 Units/L (12-78); ALBUMIN 3.5 g/dL (3.4-5.0); ALKALINE PHOSPHATASE 103 Units/L (46-116); ASPARTATE AMINO TRANSFERASE 11 Units/L (15-37); CKMB % 1.1 % (<4); CREATINE KINASE 89 Units/L (26-192); CREATINE KINASE MB < 1.0 ng/mL (0-4.0); TOTAL PROTEIN 7.4 g/dL (6.4-8.2)
[2017-10-20] MEDS: NS 1000 ML 1,000 ML IV SCH (14:00)
[2017-10-20 14:40] VITALS: BMI 20.7
[2017-10-20 18:18] LABS: CKMB % 1.4 % (<4); CREATINE KINASE 72 Units/L (26-192); CREATINE KINASE MB < 1.0 ng/mL (0-4.0); TROPONIN I < 0.02 ng/mL (0-1.5)
[2017-10-20] MEDS: ROBITUSSIN DM PO PRN ×2 (19:40→23:26)
[2017-10-20] MEDS: TUSSIONEX PENNKINETIC SUSP PO PRN (19:41)
[2017-10-20] MEDS ORDERED: AMBIEN PO PRN (20:23)
[2017-10-20] MEDS: AMBIEN PO PRN (23:25)
[2017-10-20 23:47] LABS: CKMB % 1.4 % (<4); CREATINE KINASE 73 Units/L (26-192); CREATINE KINASE MB < 1.0 ng/mL (0-4.0); TROPONIN I < 0.02 ng/mL (0-1.5)
[2017-10-21] MEDS: NS 1000 ML 1,000 ML IV SCH ×2 (02:39→17:56)
[2017-10-21 06:33] LABS: BASOPHILS # (AUTO) 0.1 X10^3/uL (0.0-0.1); EOSINOPHILS # (AUTO) 0.2 x10^3/uL (0.0-0.2); EOSINOPHILS % (AUTO) 2.8 % (0.9-2.9); HEMATOCRIT 27.5 % (36.0-47.0); HEMOGLOBIN 9.4 g/dL (12.0-16.0); LYMPHOCYTES # (AUTO) 1.8 X10^3/uL (1.3-2.9); LYMPHOCYTES % (AUTO) 21.1 % (21.0-51.0); MEAN CORPUSCULAR HEMOGLOBIN 28.5 pg (27.0-34.0); MEAN CORPUSCULAR HGB CONC 34.1 g/dL (33.0-35.0); MEAN CORPUSCULAR VOLUME 83.4 fL (80.0-100.0); MEAN PLATELET VOLUME 8.9 fL (7.4-11.0); MONOCYTES # (AUTO) 0.6 x10^3/uL (0.3-0.8); MONOCYTES % (AUTO) 7.4 % (0.0-13.0); NEUTROPHILS # (AUTO) 5.6 x10^3/uL (2.2-4.8); NEUTROPHILS % (AUTO) 67.7 % (42.0-75.0); PLATELET COUNT 305 X10^3/uL (150.0-450.0); RED BLOOD COUNT 3.29 X10^6/uL (3.5-5.4); RED CELL DISTRIBUTION WIDTH 14.7 % (11.6-16.5); WHITE BLOOD COUNT 8.3 X10^3/uL (3.6-10.0)
[2017-10-21 07:06] LABS: ALBUMIN 3.1 g/dL (3.4-5.0); CARBON DIOXIDE 19.1 mmol/L (21-32); COR CA(FOR HYPOALB) 8.7 mg/dL (8.5-10.1); CREATININE 1.32 mg/dL (0.55-1.02); TOTAL PROTEIN 6.7 g/dL (6.4-8.2)
[2017-10-21] MEDS: ROBITUSSIN DM PO PRN ×2 (09:18→21:43)
[2017-10-21] MEDS: JANUVIA PO SCH (09:19)
[2017-10-21] MEDS: NORCO 5/325 MG TAB PO SCH ×2 (09:19→21:44)
[2017-10-21] MEDS: DUONEB 0.5 MG/3 MG NEB SCH ×4 (10:50→21:39)
--- NOTE | 2017-10-21 10:57 | DR.H&P ---
H&P - History & Physical for Day of: H&P Date: 10/20/17 - Chief Complaint Chief Complaint: is a 82 year old patient of ours who presented to the emergency room via EMS with reports of sudden onset of dizziness and weakness while at the [employer] shop today. Patient states her blood pressure does drop sometimes. She denies loss of consciousness, but reports feeling faint. On arrival to the hospital patient noted with a decreased blood pressure of 89/ 44 and a heart rate of 41bpm. Labs were obtained. Abnormal lab values include the following: Abnormal Labs: Hgb 9.7, Hct 29.7, MCHC 32.6, Carbon Dioxide 20.3 , BUN 24, Creatinine 2.07, GFR af 29, GFR non 24, Glucose 178, Lactic Acid 2.6, AST 11, CRP 14.40, A/G Ratio 0.9. Chest X-Ray obtained and revealed: Mild cardiomegaly without evidence of failure. No radiographic evidence of acute cardiopulmonary disease or significant change in noted when compared to the prior examination. Patient given a one liter normal saline bolus and noted with only a minimal increase in blood pressure to the 90's over 40's. Patient admitted to the hospital for observation and started on normal saline at 75ml/ hr. We will follow up with labs in the morning. - Allergies Allergies/Adverse Reactions: Allergies Allergy/AdvReac Type Severity Reaction Status Date / Time No Known Allergies [NKA] Allergy Verified 07/09/17 17:18 - Past Medical History Past Medical History: CHF, Diabetes, Hypertension - Past Surgical History Surgical History: Appendectomy, Hysterectomy - Family History Family Medical History: Hypertension - Social History Does patient currently use any type of tobacco product: No Have you used tobacco products in the last 12 months: No Type of Tobacco Use: None Does any household member use tobacco: No Alcohol Use: None Drug Use: None - Medications Home Medications: Amlodipine Besylate [NORVASC 10 MG *] 10 mg PO DAILY 10/20/17 [History Confirmed 10/20/17] Clonidine [Pcliehfh-Vff-5] 0.1 mg TD WEEKLY 10/20/17 [History Confirmed 10/20/17 ] Hydrocodone-Acet 5 mg/325 mg [[place] 5/325 mg Tab] 1 tab PO BID 10/20/17 [ History Confirmed 10/20/17] Labetalol HCl 300 mg PO BID 10/20/17 [History Confirmed 10/20/17] Sitagliptin Phosphate [Januvia] 50 mg PO DAILY 10/20/17 [History Confirmed 10/20] Zolpidem Tartrate [Zolpidem Tartrate ER] 12.5 mg PO HS 10/20/17 [History Confirmed 10/20/17] - Review of Systems Constitutional: Weakness, Malaise Eyes: No Symptoms Reported ENT: Nose Discharge, Nose Congestion Respiratory: Cough, Shortness of Breath, Wheezing Cardiovascular: No Symptoms Reported, Light Headedness Gastrointestinal: No Symptoms Reported Genitourinary: No Symptoms Reported Musculoskeletal: No Symptoms Reported Skin: No Symptoms Reported Neurological: Weakness - Physical Exam Vital Signs: Temperature 98.9 F Pulse Rate [Left Radial] 91 Pulse Rate 50 Respiratory Rate 14 Blood Pressure [Right Arm] 168/73 Blood Pressure [Left Arm] 166/88 Blood Pressure 93/44 O2 Sat by Pulse Oximetry 93 Eyes: Normal Ear: Normal Nose: Normal Throat: Normal Respiratory: Wheezes Throughout Cardiovascular: Bradycardia. negative: S3, S4, Murmur : Normal Auscultation: Bowel Sounds: Normal Palpation: Normal Tenderness: Normal Skin: Normal Musculoskeletal: Normal Psychiatric: Normal Mood Description: Calm Affect: Normal Speech Pattern: Clear - Assessment/Plan (1) Bradycardia Status: Acute Plan: admit, conveyor monitor, normal saline at 75ml/hr, continue to monitor (2) Hypotension Qualifiers: Hypotension type: unspecified hypotension type Qualified Code(s): I95.9 - Hypotension, unspecified Status: Acute Plan: admit, normal saline at 75ml/hr, continue to monitor
[2017-10-21] MEDS: LOVENOX INJ 30 MG SYR SC SCH (11:38)
[2017-10-21] MEDS: LEVAQUIN PREMIX IV 750 MG 750 MG/150 ML BAG IV SCH (11:38)
[2017-10-21] MEDS: MUCINEX DM PO SCH ×2 (11:38→21:43)
[2017-10-21] MEDS: FORTAZ or TAZICEF INJ 1 GM in NS 100 ML IV + SPIKE MINIBAG* 100 ML IV SCH ×3 (11:38→21:43)
[2017-10-21] MEDS: TUSSIONEX PENNKINETIC SUSP PO PRN (18:04)
[2017-10-21] MEDS ORDERED: ZOLPIDEM TARTRATE 12.5 MG PO SCH (21:00)
[2017-10-21] MEDS: AMBIEN PO PRN (21:44)
[2017-10-22] MEDS: ROBITUSSIN DM PO PRN ×3 (02:04→12:45)
[2017-10-22] MEDS: NS 1000 ML 1,000 ML IV SCH (05:56)
[2017-10-22] MEDS: TUSSIONEX PENNKINETIC SUSP PO PRN (05:56)
[2017-10-22] MEDS: FORTAZ or TAZICEF INJ 1 GM in NS 100 ML IV + SPIKE MINIBAG* 100 ML IV SCH ×3 (05:56→21:38)
[2017-10-22 06:14] LABS: BASOPHILS # (AUTO) 0.1 X10^3/uL (0.0-0.1); BASOPHILS % (AUTO) 1.1 % (0.2-1.0); EOSINOPHILS # (AUTO) 0.3 x10^3/uL (0.0-0.2); EOSINOPHILS % (AUTO) 3.5 % (0.9-2.9); HEMATOCRIT 27.4 % (36.0-47.0); HEMOGLOBIN 9.3 g/dL (12.0-16.0); LYMPHOCYTES # (AUTO) 1.4 X10^3/uL (1.3-2.9); LYMPHOCYTES % (AUTO) 18.5 % (21.0-51.0); MEAN CORPUSCULAR HEMOGLOBIN 28.3 pg (27.0-34.0); MEAN CORPUSCULAR VOLUME 83.4 fL (80.0-100.0); MEAN PLATELET VOLUME 8.6 fL (7.4-11.0); MONOCYTES # (AUTO) 0.6 x10^3/uL (0.3-0.8); MONOCYTES % (AUTO) 8.3 % (0.0-13.0); NEUTROPHILS # (AUTO) 5.2 x10^3/uL (2.2-4.8); NEUTROPHILS % (AUTO) 68.6 % (42.0-75.0); PLATELET COUNT 353 X10^3/uL (150.0-450.0); RED BLOOD COUNT 3.29 X10^6/uL (3.5-5.4); RED CELL DISTRIBUTION WIDTH 14.8 % (11.6-16.5); WHITE BLOOD COUNT 7.6 X10^3/uL (3.6-10.0)
[2017-10-22 06:36] LABS: CALCIUM 7.9 mg/dL (8.5-10.1); CARBON DIOXIDE 21.2 mmol/L (21-32); COR CA(FOR HYPOALB) 8.7 mg/dL (8.5-10.1); CREATININE 1.23 mg/dL (0.55-1.02); TOTAL PROTEIN 6.8 g/dL (6.4-8.2)
[2017-10-22] MEDS: DUONEB 0.5 MG/3 MG NEB SCH ×4 (08:32→20:28)
[2017-10-22] MEDS: LEVAQUIN PREMIX IV 750 MG 750 MG/150 ML BAG IV SCH (08:36)
[2017-10-22] MEDS: NORCO 5/325 MG TAB PO SCH ×2 (08:37→21:37)
[2017-10-22] MEDS: JANUVIA PO SCH (08:37)
[2017-10-22] MEDS: LOVENOX INJ 30 MG SYR SC SCH (08:38)
[2017-10-22] MEDS: MUCINEX DM PO SCH ×2 (08:47→21:37)
[2017-10-22] MEDS: MUCOMYST 20% 200 MG/ML NEB SCH ×2 (09:49→20:28)
[2017-10-22] MEDS: MAGNESIUM SULFATE 1 GM/100 mL PREMIX 1 GM/100 ML BAG IV PRN ×5 (10:30→15:24)
--- NOTE | 2017-10-22 11:52 | RAD ---
History: Cough, weakness Study: Chest single view Findings: Single AP portable examination of chest is compared to previous study of 10/20/2017. Heart and mediastinal structures are unchanged in appearance. Epidural thoracic stimulating electrodes are again identified. Minimal strands of atelectasis in the right mid lower lung field are now demonstrat ed. Bilateral breast implants are present. Impression: Limited right basilar atelectasis Reported By:
[2017-10-22] MEDS: NORVASC TAB 10 MG PO SCH (17:22)
[2017-10-22] MEDS: ROBITUSSIN DM PO SCH ×2 (17:23→21:36)
[2017-10-22] MEDS: TESSALON PERLES PO SCH (21:37)
[2017-10-22] MEDS: AMBIEN PO PRN (23:16)
[2017-10-22] MEDS: TUSSIONEX PENNKINETIC SUSP PO SCH (23:16)
[2017-10-23 04:44] LABS: ALBUMIN 3.2 g/dL (3.4-5.0); CALCIUM 8.3 mg/dL (8.5-10.1); CARBON DIOXIDE 25.4 mmol/L (21-32); COR CA(FOR HYPOALB) 8.9 mg/dL (8.5-10.1); CREATININE 1.26 mg/dL (0.55-1.02); MAGNESIUM 2.5 mg/dL (1.7-2.9); TOTAL PROTEIN 7.4 g/dL (6.4-8.2)
[2017-10-23 04:46] LABS: BASOPHILS % (AUTO) 0.6 % (0.2-1.0); EOSINOPHILS # (AUTO) 0.2 x10^3/uL (0.0-0.2); EOSINOPHILS % (AUTO) 2.8 % (0.9-2.9); HEMATOCRIT 30.9 % (36.0-47.0); HEMOGLOBIN 10.5 g/dL (12.0-16.0); LYMPHOCYTES # (AUTO) 1.4 X10^3/uL (1.3-2.9); LYMPHOCYTES % (AUTO) 16.6 % (21.0-51.0); MEAN CORPUSCULAR HEMOGLOBIN 28.2 pg (27.0-34.0); MEAN CORPUSCULAR HGB CONC 33.8 g/dL (33.0-35.0); MEAN CORPUSCULAR VOLUME 83.2 fL (80.0-100.0); MEAN PLATELET VOLUME 7.8 fL (7.4-11.0); MONOCYTES # (AUTO) 0.7 x10^3/uL (0.3-0.8); MONOCYTES % (AUTO) 8.9 % (0.0-13.0); NEUTROPHILS # (AUTO) 5.8 x10^3/uL (2.2-4.8); NEUTROPHILS % (AUTO) 71.1 % (42.0-75.0); PLATELET COUNT 447 X10^3/uL (150.0-450.0); RED BLOOD COUNT 3.72 X10^6/uL (3.5-5.4); WHITE BLOOD COUNT 8.2 X10^3/uL (3.6-10.0)
[2017-10-23] MEDS: NS 1000 ML 1,000 ML IV SCH (06:01)
[2017-10-23] MEDS: FORTAZ or TAZICEF INJ 1 GM in NS 100 ML IV + SPIKE MINIBAG* 100 ML IV SCH ×3 (06:01→22:02)
[2017-10-23] MEDS: TESSALON PERLES PO SCH ×3 (06:04→22:03)
--- NOTE | 2017-10-23 07:42 | RAD ---
HISTORY: Shortness breath Study: Single-view chest Comparison: Yesterday Findings: The trachea is midline. The cardiac silhouette is unremarkable. The lungs are clear without focal i nfiltrate or effusion. The bony thorax is unremarkable. IMPRESSION: 1. No acute cardiopulmonary disease. Reported By:
[2017-10-23] MEDS: LEVAQUIN PREMIX IV 750 MG 750 MG/150 ML BAG IV SCH (07:59)
[2017-10-23] MEDS: JANUVIA PO SCH (07:59)
[2017-10-23] MEDS: MUCINEX DM PO SCH ×2 (08:00→22:04)
[2017-10-23] MEDS: ROBITUSSIN DM PO SCH ×4 (08:01→22:03)
[2017-10-23] MEDS: TUSSIONEX PENNKINETIC SUSP PO SCH ×2 (08:01→23:00)
[2017-10-23] MEDS: NORCO 5/325 MG TAB PO SCH ×2 (08:01→22:03)
[2017-10-23] MEDS: NORVASC TAB 10 MG PO SCH (08:01)
[2017-10-23] MEDS: LOVENOX INJ 30 MG SYR SC SCH (08:02)
[2017-10-23] MEDS: MUCOMYST 20% 200 MG/ML NEB SCH ×2 (08:54→20:16)
[2017-10-23] MEDS: DUONEB 0.5 MG/3 MG NEB SCH ×4 (08:54→20:16)
[2017-10-23] MEDS: DIFLUCAN 200 MG IV PREMIX* 200 MG/100 ML BAG IV SCH (09:04)
[2017-10-23] MEDS: XYLOCAINE 1 % (PLAIN) NEB PRN ×3 (12:10→20:17)
[2017-10-23] MEDS: SOLU-Medrol 40 MG VIAL IVP SCH ×3 (12:40→22:04)
[2017-10-23] MEDS: CATAPRES-TTS-1 TD SCH ×2 (12:40→17:04)
--- NOTE | 2017-10-23 20:27 | PCM.PROG ---
Progress Note - Progress Note for Day of Date: 10/21/17 - Subjective Subjective: WAS ADMITTED FOR HYPOTENSION AND BRADYCARDIA. SHE HAS IMPROVED SINCE ADMISSION WITH BOTH HEART RATE AND BLOOD PRESSURE RETURNED TO BASELINE. TODAY, SHE IS NOTED WITH A PRODUCTIVE COUGH AND SHORTNESS OF BREATH. SCATTERED WHEEZING AND RHONCHI NOTED TO AUSCULTATION. ABNORMAL LAB VALUES INCLUDE RBC 3.29, HGB 9.4, HCT 27.5, CARBON DIOXIDE 19.1, CREATININE 1.32, GLUCOSE 128, CALCIUM 8.0, MAGNESIUM 1.0, ALT 11, ALBUMIN 3.1. CARDIAC ENZYMES HAVE BEEN WITHIN NORMAL LIMITS. TODAY, WE WILL START FORTAZ IV AND LEVAQUIN IV WELL MUCINEX DM AND BREATHING TREATMENTS FOR TREATMENT OF BRONCHOPNEUMONIA. OTHERWISE, WE WILL FOLLOW UP WITH AM LABS AND CONTINUE TO MONITOR PATIENT. - Past Medical Family Social History Past Med/Fam/Surg Hx: No changes since H&P Allergies: Allergies No Known Allergies [NKA] Allergy (Verified 07/09/17 17:18) - Review of Systems ROS: No change since H&P - Vital Signs and I&O's Vital Signs: Temperature 96.2 F Pulse Rate [Left Radial] 93 Pulse Rate 108 Respiratory Rate 20 Blood Pressure [Right Arm] 169/85 Blood Pressure [Left Arm] 130/65 Blood Pressure 93/44 O2 Sat by Pulse Oximetry 100 Intake and Output: Intake & Output 10/21/17 10/22/17 10/23/17 10/24/17 11:59 11:59 11:59 11:59 Intake Total 2206 4080 2042 872 Output Total 200 Balance 2206 4080 2042 672 - Physical Exam Oriented: Normal Eyes: Normal Ear: Normal Nose: Normal Throat: Normal Respiratory: Generalized, Wheezes, Rhonchi Cardiovascular: Bradycardia. negative: S3, S4, Murmur : Normal Auscultation: Bowel Sounds: Normal Palpation: Normal Tenderness: Normal Skin: Normal Musculoskeletal: Normal Psychiatric: Normal Mood Description: Calm Affect: Normal Speech Pattern: Clear - Laboratory and Diagnostics Result Diagrams: 10/23/17 04:14 10/23/17 04:14 Labs: 10/21/17 11:35 Blood Blood Culture - Preliminary 10/21/17 11:20 Blood Blood Culture - Preliminary 10/22/17 12:50 Sputum - Expectorated Sputum Sputum Culture - Preliminary 10/22/17 12:50 Sputum - Expectorated Sputum - Final Laboratory WBC 8.2 X10^3/uL (3.6-10.0) 10/23/17 04:14 RBC 3.72 X10^6/uL (3.5-5.4) 10/23/17 04:14 Hgb 10.5 g/dL (12.0-16.0) L 10/23/17 04:14 Hct 30.9 % (36.0-47.0) L 10/23/17 04:14 MCV 83.2 fL (80.0-100.0) 10/23/17 04:14 MCH 28.2 pg (27.0-34.0) 10/23/17 04:14 MCHC 33.8 g/dL (33.0-35.0) 10/23/17 04:14 RDW 15.0 % (11.6-16.5) 10/23/17 04:14 Plt Count 447 X10^3/uL (150.0-450.0) 10/23/17 04:14 MPV 7.8 fL (7.4-11.0) 10/23/17 04:14 Neut % (Auto) 71.1 % (42.0-75.0) 10/23/17 04:14 Lymph % (Auto) 16.6 % (21.0-51.0) L 10/23/17 04:14 [place] % (Auto) 8.9 % (0.0-13.0) 10/23/17 04:14 Eos % (Auto) 2.8 % (0.9-2.9) 10/23/17 04:14 Baso % (Auto) 0.6 % (0.2-1.0) 10/23/17 04:14 Neut # (Auto) 5.8 x10^3/uL (2.2-4.8) H 10/23/17 04:14 Lymph # (Auto) 1.4 X10^3/uL (1.3-2.9) 10/23/17 04:14 [place] # (Auto) 0.7 x10^3/uL (0.3-0.8) 10/23/17 04:14 Eos # (Auto) 0.2 x10^3/uL (0.0-0.2) 10/23/17 04:14 Baso # (Auto) 0.0 X10^3/uL (0.0-0.1) 10/23/17 04:14 Absolute Nucleated RBC 0.0 /100WBC 10/23/17 04:14 Sodium 137 mmol/L (136-145) 10/23/17 04:14 Corrected Sodium 138 mmol/L (136-145) 10/23/17 04:14 Potassium 4.1 mmol/L (3.5-5.1) 10/23/17 04:14 Chloride 102 mmol/L (98-107) 10/23/17 04:14 Carbon Dioxide 25.4 mmol/L (21-32) 10/23/17 04:14 BUN 12 mg/dL (7-18) 10/23/17 04:14 Creatinine 1.26 mg/dL (0.55-1.02) H 10/23/17 04:14 Est GFR (MDRD) Af Amer 52 (>60) L 10/23/17 04:14 Est GFR (MDRD) Non-Af 43 (>60) L 10/23/17 04:14 Glucose 161 mg/dL (65-99) H 10/23/17 04:14 Lactic Acid 2.6 mmol/L (0.4-2.0) H 10/20/17 11:38 Calcium 8.3 mg/dL (8.5-10.1) L 10/23/17 04:14 Corrected Calcium 8.9 mg/dL (8.5-10.1) 10/23/17 04:14 Magnesium 2.5 mg/dL (1.7-2.9) 10/23/17 04:14 Total Bilirubin 0.30 mg/dL (0.2-1.0) 10/23/17 04:14 AST 15 Units/L (15-37) 10/23/17 04:14 ALT 13 Units/L (12-78) 10/23/17 04:14 Alkaline Phosphatase 110 Units/L (46-116) 10/23/17 04:14 Creatine Kinase 73 Units/L (26-192) 10/20/17 23:06 CK-MB (CK-2) < 1.0 ng/mL (0-4.0) 10/20/17 23:06 CK/CKMB % Calc 1.4 % (<4) 10/20/17 23:06 Troponin I < 0.02 ng/mL (0-1.5) 10/20/17 23:06 C-Reactive Protein 14.40 mg/L (0-3.0) H 10/20/17 11:38 Total Protein 7.4 g/dL (6.4-8.2) 10/23/17 04:14 Albumin 3.2 g/dL (3.4-5.0) L 10/23/17 04:14 Globulin 4.2 g/dL (2.5-4.5) 10/23/17 04:14 Albumin/Globulin Ratio 0.8 Ratio (1.1-2.1) L 10/23/17 04:14 Triglycerides 125 mg/dL (0-150) 10/21/17 05:44 Cholesterol 201 mg/dL (0-200) H 10/21/17 05:44 LDL Cholesterol, Calc 110 mg/dL (0-100) H 10/21/17 05:44 HDL Cholesterol 66 mg/dL (40-60) H 10/21/17 05:44 Cholesterol/HDL Ratio 3.0 (0.0-5.0) 10/21/17 05:44 - Plan (1) Bronchopneumonia Status: Acute Plan: FORTAZ, LEVAQUIN, MUCINEX, BREATHING [place], SUPPLEMENTAL OXYGEN (2) Bradycardia Status: Acute Plan: residential monitor, normal saline at 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
--- NOTE | 2017-10-23 21:17 | PCM.PROG ---
Progress Note - Progress Note for Day of Date: 10/22/17 - Subjective Subjective: WAS IS BEING TREATED FOR BRONCHOPNEUMONIA. TODAY, SHE IS NOTED WITH A PRODUCTIVE COUGH AND SHORTNESS OF BREATH. SCATTERED WHEEZING AND RHONCHI NOTED TO AUSCULTATION. ABNORMAL LAB VALUES INCLUDE RBC 3.29, HGB 9.3 , HCG 27.4, CREATININE 1.23, GLUCOOSE 146, CALCIUM 7.9, MAGNESIUM 1.0, AST 14, ALBUMIN 3.0. A CHEST XRAY WAS OBTAINED TODAY AND REVEALED LIMITED RIGHT BASILAR ATELECTASIS. TODAY, WE WILL INCREASE MUCINEX AND ADD MUCOMYST TO NEB TREATMENTS. OTHERWISE, WE WILL CONTINUE WITH CURRENT PLAN OF CARE. WE WILL FOLLOW UP WITH AM LABS AND CONTINUE TO MONITOR PATIENT. - Past Medical Family Social History Past Med/Fam/Surg Hx: No changes since H&P Allergies: Allergies No Known Allergies [NKA] Allergy (Verified 07/09/17 17:18) - Review of Systems ROS: No change since H&P - Vital Signs and I&O's Vital Signs: Temperature 96.2 F Pulse Rate [Left Radial] 93 Pulse Rate 112 Respiratory Rate 20 Blood Pressure [Right Arm] 169/85 Blood Pressure [Left Arm] 130/65 Blood Pressure 93/44 O2 Sat by Pulse Oximetry 99 Intake and Output: Intake & Output 10/21/17 10/22/17 10/23/17 10/24/17 11:59 11:59 11:59 11:59 Intake Total 2206 4080 2042 872 Output Total 200 Balance 2206 4080 2042 672 - Physical Exam Oriented: Normal Eyes: Normal Ear: Normal Nose: Normal Throat: Normal Respiratory: Generalized, Wheezes, Rhonchi Cardiovascular: Bradycardia. negative: S3, S4, Murmur : Normal Auscultation: Bowel Sounds: Normal Palpation: Normal Tenderness: Normal Skin: Normal Musculoskeletal: Normal Psychiatric: Normal Mood Description: Calm Affect: Normal Speech Pattern: Clear - Laboratory and Diagnostics Result Diagrams: 10/23/17 04:14 10/23/17 04:14 Labs: 10/21/17 11:35 Blood Blood Culture - Preliminary 10/21/17 11:20 Blood Blood Culture - Preliminary 10/22/17 12:50 Sputum - Expectorated Sputum Sputum Culture - Preliminary 10/22/17 12:50 Sputum - Expectorated Sputum - Final Laboratory WBC 8.2 X10^3/uL (3.6-10.0) 10/23/17 04:14 RBC 3.72 X10^6/uL (3.5-5.4) 10/23/17 04:14 Hgb 10.5 g/dL (12.0-16.0) L 10/23/17 04:14 Hct 30.9 % (36.0-47.0) L 10/23/17 04:14 MCV 83.2 fL (80.0-100.0) 10/23/17 04:14 MCH 28.2 pg (27.0-34.0) 10/23/17 04:14 MCHC 33.8 g/dL (33.0-35.0) 10/23/17 04:14 RDW 15.0 % (11.6-16.5) 10/23/17 04:14 Plt Count 447 X10^3/uL (150.0-450.0) 10/23/17 04:14 MPV 7.8 fL (7.4-11.0) 10/23/17 04:14 Neut % (Auto) 71.1 % (42.0-75.0) 10/23/17 04:14 Lymph % (Auto) 16.6 % (21.0-51.0) L 10/23/17 04:14 [place] % (Auto) 8.9 % (0.0-13.0) 10/23/17 04:14 Eos % (Auto) 2.8 % (0.9-2.9) 10/23/17 04:14 Baso % (Auto) 0.6 % (0.2-1.0) 10/23/17 04:14 Neut # (Auto) 5.8 x10^3/uL (2.2-4.8) H 10/23/17 04:14 Lymph # (Auto) 1.4 X10^3/uL (1.3-2.9) 10/23/17 04:14 [place] # (Auto) 0.7 x10^3/uL (0.3-0.8) 10/23/17 04:14 Eos # (Auto) 0.2 x10^3/uL (0.0-0.2) 10/23/17 04:14 Baso # (Auto) 0.0 X10^3/uL (0.0-0.1) 10/23/17 04:14 Absolute Nucleated RBC 0.0 /100WBC 10/23/17 04:14 Sodium 137 mmol/L (136-145) 10/23/17 04:14 Corrected Sodium 138 mmol/L (136-145) 10/23/17 04:14 Potassium 4.1 mmol/L (3.5-5.1) 10/23/17 04:14 Chloride 102 mmol/L (98-107) 10/23/17 04:14 Carbon Dioxide 25.4 mmol/L (21-32) 10/23/17 04:14 BUN 12 mg/dL (7-18) 10/23/17 04:14 Creatinine 1.26 mg/dL (0.55-1.02) H 10/23/17 04:14 Est GFR (MDRD) Af Amer 52 (>60) L 10/23/17 04:14 Est GFR (MDRD) Non-Af 43 (>60) L 10/23/17 04:14 Glucose 161 mg/dL (65-99) H 10/23/17 04:14 Lactic Acid 2.6 mmol/L (0.4-2.0) H 10/20/17 11:38 Calcium 8.3 mg/dL (8.5-10.1) L 10/23/17 04:14 Corrected Calcium 8.9 mg/dL (8.5-10.1) 10/23/17 04:14 Magnesium 2.5 mg/dL (1.7-2.9) 10/23/17 04:14 Total Bilirubin 0.30 mg/dL (0.2-1.0) 10/23/17 04:14 AST 15 Units/L (15-37) 10/23/17 04:14 ALT 13 Units/L (12-78) 10/23/17 04:14 Alkaline Phosphatase 110 Units/L (46-116) 10/23/17 04:14 Creatine Kinase 73 Units/L (26-192) 10/20/17 23:06 CK-MB (CK-2) < 1.0 ng/mL (0-4.0) 10/20/17 23:06 CK/CKMB % Calc 1.4 % (<4) 10/20/17 23:06 Troponin I < 0.02 ng/mL (0-1.5) 10/20/17 23:06 C-Reactive Protein 14.40 mg/L (0-3.0) H 10/20/17 11:38 Total Protein 7.4 g/dL (6.4-8.2) 10/23/17 04:14 Albumin 3.2 g/dL (3.4-5.0) L 10/23/17 04:14 Globulin 4.2 g/dL (2.5-4.5) 10/23/17 04:14 Albumin/Globulin Ratio 0.8 Ratio (1.1-2.1) L 10/23/17 04:14 Triglycerides 125 mg/dL (0-150) 10/21/17 05:44 Cholesterol 201 mg/dL (0-200) H 10/21/17 05:44 LDL Cholesterol, Calc 110 mg/dL (0-100) H 10/21/17 05:44 HDL Cholesterol 66 mg/dL (40-60) H 10/21/17 05:44 Cholesterol/HDL Ratio 3.0 (0.0-5.0) 10/21/17 05:44 - Plan (1) Bronchopneumonia Status: Acute Plan: FORTAZ, LEVAQUIN, MUCINEX, MUCOMYST IN BREATHING [place], SUPPLEMENTAL OXYGEN (2) Bradycardia Status: Acute 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
[2017-10-24] MEDS: AMBIEN PO PRN ×2 (00:05→22:20)
[2017-10-24] MEDS: COLACE CAP 100 MG PO PRN ×2 (00:05→21:11)
[2017-10-24] MEDS: SOLU-Medrol 40 MG VIAL IVP SCH ×3 (05:35→22:20)
[2017-10-24] MEDS: FORTAZ or TAZICEF INJ 1 GM in NS 100 ML IV + SPIKE MINIBAG* 100 ML IV SCH ×3 (05:35→21:10)
[2017-10-24] MEDS: TESSALON PERLES PO SCH ×3 (05:35→21:11)
[2017-10-24 06:13] LABS: BASOPHILS % (AUTO) 0.2 % (0.2-1.0); HEMATOCRIT 30.9 % (36.0-47.0); HEMOGLOBIN 10.2 g/dL (12.0-16.0); LYMPHOCYTES % (AUTO) 13.1 % (21.0-51.0); MEAN CORPUSCULAR HEMOGLOBIN 27.6 pg (27.0-34.0); MEAN CORPUSCULAR HGB CONC 33.1 g/dL (33.0-35.0); MEAN CORPUSCULAR VOLUME 83.3 fL (80.0-100.0); MEAN PLATELET VOLUME 7.7 fL (7.4-11.0); MONOCYTES # (AUTO) 0.1 x10^3/uL (0.3-0.8); MONOCYTES % (AUTO) 1.5 % (0.0-13.0); NEUTROPHILS # (AUTO) 6.6 x10^3/uL (2.2-4.8); NEUTROPHILS % (AUTO) 85.2 % (42.0-75.0); PLATELET COUNT 444 X10^3/uL (150.0-450.0); RED BLOOD COUNT 3.71 X10^6/uL (3.5-5.4); RED CELL DISTRIBUTION WIDTH 15.1 % (11.6-16.5); WHITE BLOOD COUNT 7.7 X10^3/uL (3.6-10.0)
[2017-10-24 06:23] LABS: ALANINE AMINOTRANSFERASE 13 Units/L (12-78); ALBUMIN 3.5 g/dL (3.4-5.0); ALKALINE PHOSPHATASE 116 Units/L (46-116); ASPARTATE AMINO TRANSFERASE 25 Units/L (15-37); BLOOD UREA NITROGEN 19 mg/dL (7-18); CALCIUM 8.8 mg/dL (8.5-10.1); CARBON DIOXIDE 23.4 mmol/L (21-32); CHLORIDE 99 mmol/L (98-107); COR NA(FOR HYPERGLY) 139 mmol/L (136-145); CREATININE 1.52 mg/dL (0.55-1.02); SODIUM 134 mmol/L (136-145); TOTAL PROTEIN 7.9 g/dL (6.4-8.2); eGFR BLACK RACES 42 (>60); eGFR NON BLACK RACES 35 (>60)
--- NOTE | 2017-10-24 08:11 | RAD ---
Examination: AP chest History: SOB Comparison 10/23/2017 Findings: Continued normal heart size with essentially clear lungs and pleural spaces. No pneumothora x, large pleural effusion or pulmonary consolidation. Impression: No significant change or acute chest findings. Reported By:
[2017-10-24] MEDS: MILK OF MAGNESIA PO SCH ×2 (08:33→09:11)
[2017-10-24] MEDS: JANUVIA PO SCH (08:34)
[2017-10-24] MEDS: LEVAQUIN PREMIX IV 750 MG 750 MG/150 ML BAG IV SCH (08:34)
[2017-10-24] MEDS: LOVENOX INJ 30 MG SYR SC SCH (08:34)
[2017-10-24] MEDS: DIFLUCAN 200 MG IV PREMIX* 200 MG/100 ML BAG IV SCH (08:34)
[2017-10-24] MEDS: NORCO 5/325 MG TAB PO SCH ×2 (08:35→21:11)
[2017-10-24] MEDS: NORVASC TAB 10 MG PO SCH (08:36)
[2017-10-24] MEDS: ROBITUSSIN DM PO SCH ×4 (08:36→21:11)
[2017-10-24] MEDS: TUSSIONEX PENNKINETIC SUSP PO SCH ×2 (08:37→22:20)
[2017-10-24] MEDS: MUCINEX DM PO SCH ×2 (09:09→21:12)
[2017-10-24] MEDS: NS 1000 ML 1,000 ML IV SCH (09:11)
[2017-10-24] MEDS: DUONEB 0.5 MG/3 MG NEB SCH ×3 (09:18→16:30)
[2017-10-24] MEDS: MUCOMYST 20% 200 MG/ML NEB SCH (09:18)
[2017-10-24] MEDS: XYLOCAINE 1 % (PLAIN) NEB PRN ×3 (09:19→16:31)
[2017-10-24] MEDS: HumuLIN R SUBCUT PRN ×2 (11:55→22:56)
--- NOTE | 2017-10-24 12:02 | PCM.PROG ---
Progress Note - Progress Note for Day of Date: 10/23/17 - Subjective Subjective: WAS IS BEING TREATED FOR BRONCHOPNEUMONIA. TODAY, SHE CONTINUES WITH A PRODUCTIVE COUGH AND SHORTNESS OF BREATH. SCATTERED WHEEZING AND RHONCHI NOTED TO AUSCULTATION. ABNORMAL LAB VALUES INCLUDE HGB 10.5, HCT 30.9, CREATININE 1.26, GLUCOSE 161, CALCIUM 8.3, ALBUMIN 3.2. HER CHEST XRAY IS STABLE TODAY. TODAY, WE WILL START SOLU MEDROL 40MG IV Q8H, RESTART HER CLONIDINE PATCH, AND ADD LIDOCAINE TO HER NEB TREATMENTS PRN. OTHERWISE, WE WILL CONTINUE WITH IV ANTIBIOTICS AND CURRENT PLAN OF CARE. WE WILL FOLLOW UP WITH AM LABS AND CONTINUE TO MONITOR PATIENT. - Past Medical Family Social History Past Med/Fam/Surg Hx: No changes since H&P Allergies: Allergies No Known Allergies [NKA] Allergy (Verified 07/09/17 17:18) - Review of Systems ROS: No change since H&P - Vital Signs and I&O's Vital Signs: Temperature 97.6 F Pulse Rate [Left Radial] 102 Pulse Rate 109 Respiratory Rate 20 Blood Pressure [Right Arm] 163/80 Blood Pressure [Left Arm] 130/65 Blood Pressure 93/44 O2 Sat by Pulse Oximetry 98 Intake and Output: Intake & Output 10/22/17 10/23/17 10/24/17 10/25/17 11:59 11:59 11:59 11:59 Intake Total 4080 2042 1726 Output Total 700 Balance 4080 2042 1026 - Physical Exam Oriented: Normal Eyes: Normal Ear: Normal Nose: Normal Throat: Normal Respiratory: Generalized, Wheezes, Rhonchi Cardiovascular: Bradycardia. negative: S3, S4, Murmur : Normal Auscultation: Bowel Sounds: Normal Palpation: Normal Tenderness: Normal Skin: Normal Musculoskeletal: Normal Psychiatric: Normal Mood Description: Calm Affect: Normal Speech Pattern: Clear - Laboratory and Diagnostics Result Diagrams: 10/24/17 06:00 10/24/17 06:00 Labs: 10/22/17 12:50 Sputum - Expectorated Sputum Sputum Culture - Final 10/22/17 12:50 Sputum - Expectorated Sputum - Final 10/21/17 11:35 Blood Blood Culture - Preliminary 10/21/17 11:20 Blood Blood Culture - Preliminary Laboratory WBC 7.7 X10^3/uL (3.6-10.0) 10/24/17 06:00 RBC 3.71 X10^6/uL (3.5-5.4) 10/24/17 06:00 Hgb 10.2 g/dL (12.0-16.0) L 10/24/17 06:00 Hct 30.9 % (36.0-47.0) L 10/24/17 06:00 MCV 83.3 fL (80.0-100.0) 10/24/17 06:00 MCH 27.6 pg (27.0-34.0) 10/24/17 06:00 MCHC 33.1 g/dL (33.0-35.0) 10/24/17 06:00 RDW 15.1 % (11.6-16.5) 10/24/17 06:00 Plt Count 444 X10^3/uL (150.0-450.0) 10/24/17 06:00 MPV 7.7 fL (7.4-11.0) 10/24/17 06:00 Neut % (Auto) 85.2 % (42.0-75.0) H 10/24/17 06:00 Lymph % (Auto) 13.1 % (21.0-51.0) L 10/24/17 06:00 [place] % (Auto) 1.5 % (0.0-13.0) 10/24/17 06:00 Eos % (Auto) 0.0 % (0.9-2.9) L 10/24/17 06:00 Baso % (Auto) 0.2 % (0.2-1.0) 10/24/17 06:00 Neut # (Auto) 6.6 x10^3/uL (2.2-4.8) H 10/24/17 06:00 Lymph # (Auto) 1.0 X10^3/uL (1.3-2.9) L 10/24/17 06:00 [place] # (Auto) 0.1 x10^3/uL (0.3-0.8) L 10/24/17 06:00 Eos # (Auto) 0.0 x10^3/uL (0.0-0.2) 10/24/17 06:00 Baso # (Auto) 0.0 X10^3/uL (0.0-0.1) 10/24/17 06:00 Absolute Nucleated RBC 0.0 /100WBC 10/24/17 06:00 Sodium 134 mmol/L (136-145) L 10/24/17 06:00 Corrected Sodium 139 mmol/L (136-145) 10/24/17 06:00 Potassium 4.3 mmol/L (3.5-5.1) 10/24/17 06:00 Chloride 99 mmol/L (98-107) 10/24/17 06:00 Carbon Dioxide 23.4 mmol/L (21-32) 10/24/17 06:00 BUN 19 mg/dL (7-18) H 10/24/17 06:00 Creatinine 1.52 mg/dL (0.55-1.02) H 10/24/17 06:00 Est GFR (MDRD) Af Amer 42 (>60) L 10/24/17 06:00 Est GFR (MDRD) Non-Af 35 (>60) L 10/24/17 06:00 Glucose 328 mg/dL (65-99) H 10/24/17 06:00 POC Glucose (mg/dL) 370 mg/dL (65-99) H 10/24/17 11:30 Lactic Acid 2.6 mmol/L (0.4-2.0) H 10/20/17 11:38 Calcium 8.8 mg/dL (8.5-10.1) 10/24/17 06:00 Corrected Calcium TNP 10/24/17 06:00 Magnesium 2.5 mg/dL (1.7-2.9) 10/23/17 04:14 Total Bilirubin 0.20 mg/dL (0.2-1.0) 10/24/17 06:00 AST 25 Units/L (15-37) 10/24/17 06:00 ALT 13 Units/L (12-78) 10/24/17 06:00 Alkaline Phosphatase 116 Units/L (46-116) 10/24/17 06:00 Creatine Kinase 73 Units/L (26-192) 10/20/17 23:06 CK-MB (CK-2) < 1.0 ng/mL (0-4.0) 10/20/17 23:06 CK/CKMB % Calc 1.4 % (<4) 10/20/17 23:06 Troponin I < 0.02 ng/mL (0-1.5) 10/20/17 23:06 C-Reactive Protein 14.40 mg/L (0-3.0) H 10/20/17 11:38 Total Protein 7.9 g/dL (6.4-8.2) 10/24/17 06:00 Albumin 3.5 g/dL (3.4-5.0) 10/24/17 06:00 Globulin 4.4 g/dL (2.5-4.5) 10/24/17 06:00 Albumin/Globulin Ratio 0.8 Ratio (1.1-2.1) L 10/24/17 06:00 Triglycerides 125 mg/dL (0-150) 10/21/17 05:44 Cholesterol 201 mg/dL (0-200) H 10/21/17 05:44 LDL Cholesterol, Calc 110 mg/dL (0-100) H 10/21/17 05:44 HDL Cholesterol 66 mg/dL (40-60) H 10/21/17 05:44 Cholesterol/HDL Ratio 3.0 (0.0-5.0) 10/21/17 05:44 - Plan (1) Bronchopneumonia Status: Acute Plan: FORTAZ, LEVAQUIN, MUCINEX, MUCOMYST IN BREATHING [place], LIDOCAINE IN BREATHING TX, SOLUMEDROL 40MG IV Q8H, SUPPLEMENTAL OXYGEN (2) Bradycardia Status: Acute 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
--- NOTE | 2017-10-24 15:12 | PCM.PROG ---
Progress Note - Progress Note for Day of Date: 10/24/17 - Subjective Subjective: IS BEING TREATED FOR BRONCHOPNEUMONIA. TODAY, SHE CONTINUES WITH A PRODUCTIVE COUGH AND SHORTNESS OF BREATH. SCATTERED WHEEZING AND RHONCHI NOTED TO AUSCULTATION. VITALS ARE 97.0-110-18-98%-174/71. ABNORMAL LAB VALUES INCLUDE HGB 10.2, HCT 30.9, SODIUM 134, BUN 19, CREATININE 1.52, GLUCOSE 328. HER CHEST XRAY IS STABLE TODAY. WE WILL CONTINUE WITH IV ANTIBIOTICS AND CURRENT PLAN OF CARE. WE WILL FOLLOW UP WITH AM LABS AND CONTINUE TO MONITOR PATIENT. - Past Medical Family Social History Past Med/Fam/Surg Hx: No changes since H&P Allergies: Allergies No Known Allergies [NKA] Allergy (Verified 07/09/17 17:18) - Review of Systems ROS: No change since H&P - Vital Signs and I&O's Vital Signs: Temperature 97.0 F Pulse Rate [Left Radial] 110 Pulse Rate 109 Respiratory Rate 18 Blood Pressure [Right Arm] 174/71 Blood Pressure [Left Arm] 130/65 Blood Pressure 93/44 O2 Sat by Pulse Oximetry 98 Intake and Output: Intake & Output 10/22/17 10/23/17 10/24/17 10/25/17 11:59 11:59 11:59 11:59 Intake Total 4080 2042 1726 675 Output Total 700 800 Balance 4080 2042 1026 -125 - Physical Exam Oriented: Normal Eyes: Normal Ear: Normal Nose: Normal Throat: Normal Respiratory: Generalized, Wheezes, Rhonchi Cardiovascular: Bradycardia. negative: S3, S4, Murmur : Normal Auscultation: Bowel Sounds: Normal Tenderness: Normal Skin: Normal Musculoskeletal: Normal Psychiatric: Normal Mood Description: Calm Affect: Normal Speech Pattern: Clear - Laboratory and Diagnostics Result Diagrams: 10/24/17 06:00 10/24/17 06:00 Labs: 10/22/17 12:50 Sputum - Expectorated Sputum Sputum Culture - Final 10/22/17 12:50 Sputum - Expectorated Sputum - Final 10/21/17 11:35 Blood Blood Culture - Preliminary 10/21/17 11:20 Blood Blood Culture - Preliminary Laboratory WBC 7.7 X10^3/uL (3.6-10.0) 10/24/17 06:00 RBC 3.71 X10^6/uL (3.5-5.4) 10/24/17 06:00 Hgb 10.2 g/dL (12.0-16.0) L 10/24/17 06:00 Hct 30.9 % (36.0-47.0) L 10/24/17 06:00 MCV 83.3 fL (80.0-100.0) 10/24/17 06:00 MCH 27.6 pg (27.0-34.0) 10/24/17 06:00 MCHC 33.1 g/dL (33.0-35.0) 10/24/17 06:00 RDW 15.1 % (11.6-16.5) 10/24/17 06:00 Plt Count 444 X10^3/uL (150.0-450.0) 10/24/17 06:00 MPV 7.7 fL (7.4-11.0) 10/24/17 06:00 Neut % (Auto) 85.2 % (42.0-75.0) H 10/24/17 06:00 Lymph % (Auto) 13.1 % (21.0-51.0) L 10/24/17 06:00 [place] % (Auto) 1.5 % (0.0-13.0) 10/24/17 06:00 Eos % (Auto) 0.0 % (0.9-2.9) L 10/24/17 06:00 Baso % (Auto) 0.2 % (0.2-1.0) 10/24/17 06:00 Neut # (Auto) 6.6 x10^3/uL (2.2-4.8) H 10/24/17 06:00 Lymph # (Auto) 1.0 X10^3/uL (1.3-2.9) L 10/24/17 06:00 [place] # (Auto) 0.1 x10^3/uL (0.3-0.8) L 10/24/17 06:00 Eos # (Auto) 0.0 x10^3/uL (0.0-0.2) 10/24/17 06:00 Baso # (Auto) 0.0 X10^3/uL (0.0-0.1) 10/24/17 06:00 Absolute Nucleated RBC 0.0 /100WBC 10/24/17 06:00 Sodium 134 mmol/L (136-145) L 10/24/17 06:00 Corrected Sodium 139 mmol/L (136-145) 10/24/17 06:00 Potassium 4.3 mmol/L (3.5-5.1) 10/24/17 06:00 Chloride 99 mmol/L (98-107) 10/24/17 06:00 Carbon Dioxide 23.4 mmol/L (21-32) 10/24/17 06:00 BUN 19 mg/dL (7-18) H 10/24/17 06:00 Creatinine 1.52 mg/dL (0.55-1.02) H 10/24/17 06:00 Est GFR (MDRD) Af Amer 42 (>60) L 10/24/17 06:00 Est GFR (MDRD) Non-Af 35 (>60) L 10/24/17 06:00 Glucose 328 mg/dL (65-99) H 10/24/17 06:00 POC Glucose (mg/dL) 370 mg/dL (65-99) H 10/24/17 11:30 Lactic Acid 2.6 mmol/L (0.4-2.0) H 10/20/17 11:38 Calcium 8.8 mg/dL (8.5-10.1) 10/24/17 06:00 Corrected Calcium TNP 10/24/17 06:00 Magnesium 2.5 mg/dL (1.7-2.9) 10/23/17 04:14 Total Bilirubin 0.20 mg/dL (0.2-1.0) 10/24/17 06:00 AST 25 Units/L (15-37) 10/24/17 06:00 ALT 13 Units/L (12-78) 10/24/17 06:00 Alkaline Phosphatase 116 Units/L (46-116) 10/24/17 06:00 Creatine Kinase 73 Units/L (26-192) 10/20/17 23:06 CK-MB (CK-2) < 1.0 ng/mL (0-4.0) 10/20/17 23:06 CK/CKMB % Calc 1.4 % (<4) 10/20/17 23:06 Troponin I < 0.02 ng/mL (0-1.5) 10/20/17 23:06 C-Reactive Protein 14.40 mg/L (0-3.0) H 10/20/17 11:38 Total Protein 7.9 g/dL (6.4-8.2) 10/24/17 06:00 Albumin 3.5 g/dL (3.4-5.0) 10/24/17 06:00 Globulin 4.4 g/dL (2.5-4.5) 10/24/17 06:00 Albumin/Globulin Ratio 0.8 Ratio (1.1-2.1) L 10/24/17 06:00 Triglycerides 125 mg/dL (0-150) 10/21/17 05:44 Cholesterol 201 mg/dL (0-200) H 10/21/17 05:44 LDL Cholesterol, Calc 110 mg/dL (0-100) H 10/21/17 05:44 HDL Cholesterol 66 mg/dL (40-60) H 10/21/17 05:44 Cholesterol/HDL Ratio 3.0 (0.0-5.0) 10/21/17 05:44 - Plan (1) Bronchopneumonia Status: Acute Plan: FORTAZ, LEVAQUIN, MUCINEX, MUCOMYST IN BREATHING TX, LIDOCAINE IN BREATHING TX, SOLUMEDROL 40MG IV Q8H, SUPPLEMENTAL OXYGEN (2) Bradycardia Status: Acute Plan: quality assurance monitor final, normal saline at 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
[2017-10-24] MEDS: SNACK - Diabetic Appropriate PO SCH (20:00)
[2017-10-25] MEDS: DUONEB 0.5 MG/3 MG NEB SCH ×5 (01:04→20:40)
[2017-10-25] MEDS: MUCOMYST 20% 200 MG/ML NEB SCH (01:05)
--- NOTE | 2017-10-25 06:00 | RAD ---
HISTORY: Shortness of breath Study: Chest AP portable Comparison: 10/23/2017, 10/24/2017 Findings: The heart is mildly enlarged. The aorta is ectatic. The mario are normal. No congestive heart failure is noted. No infiltrates are identified. Bibasilar subsegmental atelectasis is present. The bony thor ax is unremarkable. IMPRESSION: Mild cardiomegaly without congestive heart failure Bibasilar subsegmental atelectasis Reported By:
[2017-10-25] MEDS: HumuLIN R SUBCUT PRN ×4 (06:05→21:00)
[2017-10-25] MEDS: FORTAZ or TAZICEF INJ 1 GM in NS 100 ML IV + SPIKE MINIBAG* 100 ML IV SCH (06:28)
[2017-10-25] MEDS: TESSALON PERLES PO SCH ×3 (06:29→22:00)
[2017-10-25] MEDS: SOLU-Medrol 40 MG VIAL IVP SCH ×3 (06:29→22:00)
[2017-10-25 06:35] LABS: BASOPHILS % (AUTO) 0.2 % (0.2-1.0); HEMATOCRIT 26.7 % (36.0-47.0); HEMOGLOBIN 8.8 g/dL (12.0-16.0); LYMPHOCYTES # (AUTO) 0.9 X10^3/uL (1.3-2.9); MEAN CORPUSCULAR HEMOGLOBIN 27.7 pg (27.0-34.0); MEAN CORPUSCULAR VOLUME 83.9 fL (80.0-100.0); MEAN PLATELET VOLUME 8.3 fL (7.4-11.0); MONOCYTES # (AUTO) 0.4 x10^3/uL (0.3-0.8); MONOCYTES % (AUTO) 2.2 % (0.0-13.0); NEUTROPHILS # (AUTO) 16.8 x10^3/uL (2.2-4.8); NEUTROPHILS % (AUTO) 92.6 % (42.0-75.0); PLATELET COUNT 454 X10^3/uL (150.0-450.0); RED BLOOD COUNT 3.18 X10^6/uL (3.5-5.4); RED CELL DISTRIBUTION WIDTH 15.2 % (11.6-16.5); WHITE BLOOD COUNT 18.1 X10^3/uL (3.6-10.0)
[2017-10-25 06:58] LABS: CALCIUM 8.3 mg/dL (8.5-10.1); COR CA(FOR HYPOALB) 9.1 mg/dL (8.5-10.1); CREATININE 1.67 mg/dL (0.55-1.02); TOTAL PROTEIN 6.8 g/dL (6.4-8.2)
[2017-10-25 07:05] LABS: PLATELET MORPHOLOGY COMMENT NORMAL (NORMAL)
[2017-10-25] MEDS: XYLOCAINE 1 % (PLAIN) NEB PRN ×3 (08:48→17:15)
[2017-10-25] MEDS ORDERED: XOPENEX 1.25 MG/3 ML NEBULE NEB SCH (09:00)
[2017-10-25] MEDS: JANUVIA PO SCH (09:42)
[2017-10-25] MEDS: ROBITUSSIN DM PO SCH ×4 (09:42→20:40)
[2017-10-25] MEDS: MILK OF MAGNESIA PO SCH (09:42)
[2017-10-25] MEDS: NORVASC TAB 10 MG PO SCH (09:42)
[2017-10-25] MEDS: NORCO 5/325 MG TAB PO SCH ×2 (09:42→20:40)
[2017-10-25] MEDS: TUSSIONEX PENNKINETIC SUSP PO SCH ×2 (09:43→20:08)
[2017-10-25] MEDS: DIFLUCAN 200 MG IV PREMIX* 200 MG/100 ML BAG IV SCH (09:44)
[2017-10-25] MEDS: LOVENOX INJ 30 MG SYR SC SCH (09:45)
[2017-10-25] MEDS: NS 1000 ML 1,000 ML IV SCH (09:53)
[2017-10-25] MEDS: MUCINEX DM PO SCH ×2 (09:53→20:41)
[2017-10-25] MEDS: SNACK - Diabetic Appropriate PO SCH (20:00)
[2017-10-25] MEDS: COLACE CAP 100 MG PO PRN (20:40)
[2017-10-25] MEDS ORDERED: GYLCERIN ADULT SUPP RECTAL SCH (21:00)
[2017-10-26] MEDS: AMBIEN PO PRN ×2 (00:20→23:50)
[2017-10-26 06:12] LABS: BASOPHILS % (AUTO) 0.2 % (0.2-1.0); HEMATOCRIT 27.6 % (36.0-47.0); HEMOGLOBIN 9.1 g/dL (12.0-16.0); LYMPHOCYTES # (AUTO) 0.8 X10^3/uL (1.3-2.9); LYMPHOCYTES % (AUTO) 5.1 % (21.0-51.0); MEAN CORPUSCULAR HEMOGLOBIN 27.7 pg (27.0-34.0); MEAN CORPUSCULAR HGB CONC 33.1 g/dL (33.0-35.0); MEAN CORPUSCULAR VOLUME 83.8 fL (80.0-100.0); MEAN PLATELET VOLUME 8.2 fL (7.4-11.0); MONOCYTES # (AUTO) 0.4 x10^3/uL (0.3-0.8); MONOCYTES % (AUTO) 2.3 % (0.0-13.0); NEUTROPHILS # (AUTO) 14.9 x10^3/uL (2.2-4.8); NEUTROPHILS % (AUTO) 92.4 % (42.0-75.0); PLATELET COUNT 425 X10^3/uL (150.0-450.0); RED BLOOD COUNT 3.29 X10^6/uL (3.5-5.4); RED CELL DISTRIBUTION WIDTH 15.4 % (11.6-16.5); WHITE BLOOD COUNT 16.1 X10^3/uL (3.6-10.0)
[2017-10-26] MEDS: SOLU-Medrol 40 MG VIAL IVP SCH (06:17)
[2017-10-26] MEDS: TESSALON PERLES PO SCH ×4 (06:18→21:13)
[2017-10-26 06:31] LABS: CALCIUM 8.1 mg/dL (8.5-10.1); CARBON DIOXIDE 24.5 mmol/L (21-32); COR CA(FOR HYPOALB) 8.9 mg/dL (8.5-10.1); CREATININE 1.5 mg/dL (0.55-1.02); TOTAL PROTEIN 6.7 g/dL (6.4-8.2)
[2017-10-26] MEDS: HumuLIN R SUBCUT PRN ×4 (06:37→22:06)
[2017-10-26 06:57] LABS: PLATELET MORPHOLOGY COMMENT NORMAL (NORMAL)
--- NOTE | 2017-10-26 06:58 | RAD ---
HISTORY: Shortness of breath Study: Chest AP portable Comparison: 10/25/2017 Findings: The heart is mildly enlarged. No congestive heart failure is noted. The mario are normal. The lung fie lds are clear. No pleural effusions are identified. The bony thorax is unremarkable. Calcified breast implants are noted bilaterally. IMPRESSION: Minimal cardiomegaly without congestive heart failure Lungs clear Reported By:
[2017-10-26] MEDS: MUCINEX DM PO SCH ×2 (08:23→21:05)
[2017-10-26] MEDS: MILK OF MAGNESIA PO SCH (08:24)
[2017-10-26] MEDS: NORCO 5/325 MG TAB PO SCH ×2 (08:24→21:06)
[2017-10-26] MEDS: FORTAZ or TAZICEF INJ 1 GM in NS 100 ML IV + SPIKE MINIBAG* 100 ML IV SCH (08:25)
[2017-10-26] MEDS: LEVAQUIN PREMIX IV 750 MG 750 MG/150 ML BAG IV SCH (08:26)
[2017-10-26] MEDS: DIFLUCAN 200 MG IV PREMIX* 200 MG/100 ML BAG IV SCH (08:26)
[2017-10-26] MEDS: NORVASC TAB 10 MG PO SCH (08:27)
[2017-10-26] MEDS: JANUVIA PO SCH (08:27)
[2017-10-26] MEDS: ROBITUSSIN DM PO SCH ×4 (08:27→21:06)
[2017-10-26] MEDS: LOVENOX INJ 30 MG SYR SC SCH (08:28)
[2017-10-26] MEDS: NS 1000 ML 1,000 ML IV SCH (09:07)
[2017-10-26] MEDS: TUSSIONEX PENNKINETIC SUSP PO SCH ×2 (09:08→23:50)
[2017-10-26] MEDS: DUONEB 0.5 MG/3 MG NEB SCH ×4 (09:30→21:31)
--- NOTE | 2017-10-26 10:59 | PCM.PROG ---
Progress Note - Progress Note for Day of Date: 10/26/17 - Subjective Subjective: IS BEING TREATED FOR BRONCHOPNEUMONIA. TODAY, SHE CONTINUES WITH A PRODUCTIVE COUGH AND SHORTNESS OF BREATH. SCATTERED WHEEZING AND RHONCHI NOTED TO AUSCULTATION. VITALS ARE 97.6-106-20-96%-164/73. ABNORMAL LAB VALUES INCLUDE WBC INCREASED FROM 7.7 TO 18.1, RBC 3.18, HGB 8.8, HCT 26.7, BUN 28, CREATININE 1.67, GLUCOSE 317, CALCIUM 8.3, ALBUMIN 3.0. A CHEST XRAY WAS OBTAINED TODAY AND REVEALED MILD CARDIOMEGALY WITHOUT CONGESTIVE HEART FAILURE. BIBASILAR SUBSEGMENTAL ATELECTASIS. TODAY, WE WILL CONTINUE WITH IV ANTIBIOTICS AND CURRENT PLAN OF CARE. WE WILL FOLLOW UP WITH AM LABS AND CONTINUE TO MONITOR PATIENT. - Past Medical Family Social History Past Med/Fam/Surg Hx: No changes since H&P Allergies: Allergies No Known Allergies [NKA] Allergy (Verified 07/09/17 17:18) - Review of Systems ROS: No change since H&P - Vital Signs and I&O's Vital Signs: Temperature 99.0 F Pulse Rate [Left Radial] 100 Pulse Rate 114 Respiratory Rate 18 Blood Pressure [Right Arm] 141/67 Blood Pressure [Left Arm] 130/65 Blood Pressure 93/44 O2 Sat by Pulse Oximetry 98 Intake and Output: Intake & Output 10/23/17 10/24/17 10/25/17 10/26/17 11:59 11:59 11:59 11:59 Intake Total 2042 1726 1537 2324 Output Total 700 1300 1700 Balance 2042 1026 237 624 - Physical Exam Oriented: Normal Eyes: Normal Ear: Normal Nose: Normal Throat: Normal Respiratory: Generalized, Wheezes, Rhonchi Cardiovascular: Bradycardia. negative: S3, S4, Murmur : Normal Auscultation: Bowel Sounds: Normal Palpation: Normal Tenderness: Normal Skin: Normal Musculoskeletal: Normal Psychiatric: Normal Mood Description: Calm Affect: Normal Speech Pattern: Clear - Laboratory and Diagnostics Result Diagrams: 10/26/17 04:54 10/26/17 04:54 Labs: 10/22/17 12:50 Sputum - Expectorated Sputum Sputum Culture - Final 10/22/17 12:50 Sputum - Expectorated Sputum - Final 10/21/17 11:35 Blood Blood Culture - Preliminary 10/21/17 11:20 Blood Blood Culture - Preliminary Laboratory WBC 16.1 X10^3/uL (3.6-10.0) H 10/26/17 04:54 RBC 3.29 X10^6/uL (3.5-5.4) L 10/26/17 04:54 Hgb 9.1 g/dL (12.0-16.0) L 10/26/17 04:54 Hct 27.6 % (36.0-47.0) L 10/26/17 04:54 MCV 83.8 fL (80.0-100.0) 10/26/17 04:54 MCH 27.7 pg (27.0-34.0) 10/26/17 04:54 MCHC 33.1 g/dL (33.0-35.0) 10/26/17 04:54 RDW 15.4 % (11.6-16.5) 10/26/17 04:54 Plt Count 425 X10^3/uL (150.0-450.0) 10/26/17 04:54 Plt Count Comment Adequate (ADEQUATE) 10/26/17 04:54 MPV 8.2 fL (7.4-11.0) 10/26/17 04:54 Neut % (Auto) 92.4 % (42.0-75.0) H 10/26/17 04:54 Lymph % (Auto) 5.1 % (21.0-51.0) L 10/26/17 04:54 [place] % (Auto) 2.3 % (0.0-13.0) 10/26/17 04:54 Eos % (Auto) 0.0 % (0.9-2.9) L 10/26/17 04:54 Baso % (Auto) 0.2 % (0.2-1.0) 10/26/17 04:54 Neut # (Auto) 14.9 x10^3/uL (2.2-4.8) H 10/26/17 04:54 Lymph # (Auto) 0.8 X10^3/uL (1.3-2.9) L 10/26/17 04:54 [place] # (Auto) 0.4 x10^3/uL (0.3-0.8) 10/26/17 04:54 Eos # (Auto) 0.0 x10^3/uL (0.0-0.2) 10/26/17 04:54 Baso # (Auto) 0.0 X10^3/uL (0.0-0.1) 10/26/17 04:54 Absolute Nucleated RBC 0.1 /100WBC 10/26/17 04:54 Total Counted 100 10/26/17 04:54 Neutrophils % (Manual) 86 % (39-76) H 10/26/17 04:54 Lymphocytes % (Manual) 12 % (13-43) L 10/26/17 04:54 Monocytes % (Manual) 2 % (4-9) L 10/26/17 04:54 Plt Morphology Comment Normal (NORMAL) 10/26/17 04:54 RBC Morphology Normal (NORMAL) 10/26/17 04:54 Sodium 137 mmol/L (136-145) 10/26/17 04:54 Corrected Sodium 143 mmol/L (136-145) 10/26/17 04:54 Potassium 4.2 mmol/L (3.5-5.1) 10/26/17 04:54 Chloride 104 mmol/L (98-107) 10/26/17 04:54 Carbon Dioxide 24.5 mmol/L (21-32) 10/26/17 04:54 BUN 31 mg/dL (7-18) H 10/26/17 04:54 Creatinine 1.50 mg/dL (0.55-1.02) H 10/26/17 04:54 Est GFR (MDRD) Af Amer 43 (>60) L 10/26/17 04:54 Est GFR (MDRD) Non-Af 35 (>60) L 10/26/17 04:54 Glucose 331 mg/dL (65-99) H 10/26/17 04:54 POC Glucose (mg/dL) 342 mg/dL (65-99) H 10/26/17 06:28 Lactic Acid 2.6 mmol/L (0.4-2.0) H 10/20/17 11:38 Calcium 8.1 mg/dL (8.5-10.1) L 10/26/17 04:54 Corrected Calcium 8.9 mg/dL (8.5-10.1) 10/26/17 04:54 Magnesium 2.5 mg/dL (1.7-2.9) 10/23/17 04:14 Total Bilirubin 0.20 mg/dL (0.2-1.0) 10/26/17 04:54 AST 28 Units/L (15-37) 10/26/17 04:54 ALT 14 Units/L (12-78) 10/26/17 04:54 Alkaline Phosphatase 90 Units/L (46-116) 10/26/17 04:54 Creatine Kinase 73 Units/L (26-192) 10/20/17 23:06 CK-MB (CK-2) < 1.0 ng/mL (0-4.0) 10/20/17 23:06 CK/CKMB % Calc 1.4 % (<4) 10/20/17 23:06 Troponin I < 0.02 ng/mL (0-1.5) 10/20/17 23:06 C-Reactive Protein 14.40 mg/L (0-3.0) H 10/20/17 11:38 Total Protein 6.7 g/dL (6.4-8.2) 10/26/17 04:54 Albumin 3.0 g/dL (3.4-5.0) L 10/26/17 04:54 Globulin 3.7 g/dL (2.5-4.5) 10/26/17 04:54 Albumin/Globulin Ratio 0.8 Ratio (1.1-2.1) L 10/26/17 04:54 Triglycerides 125 mg/dL (0-150) 10/21/17 05:44 Cholesterol 201 mg/dL (0-200) H 10/21/17 05:44 LDL Cholesterol, Calc 110 mg/dL (0-100) H 10/21/17 05:44 HDL Cholesterol 66 mg/dL (40-60) H 10/21/17 05:44 Cholesterol/HDL Ratio 3.0 (0.0-5.0) 10/21/17 05:44 - Plan (1) Bronchopneumonia Status: Acute Plan: FORTAZ, LEVAQUIN, MUCINEX, MUCOMYST IN BREATHING TX, LIDOCAINE IN BREATHING TX, SOLUMEDROL 40MG IV Q8H, SUPPLEMENTAL OXYGEN (2) Bradycardia Status: Acute Plan: quality assurance monitor chassis, normal saline at 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
--- NOTE | 2017-10-26 11:41 | PCM.PROG ---
Progress Note - Progress Note for Day of Date: 10/26/17 - Subjective Subjective: IS BEING TREATED FOR BRONCHOPNEUMONIA. TODAY, SHE CONTINUES WITH A PRODUCTIVE COUGH AND SHORTNESS OF BREATH. COUGH SEEMS TO BE MORE PERSISTENT TODAY COMPARED TO PREVIOUS DAYS. SCATTERED WHEEZING AND RHONCHI NOTED TO AUSCULTATION. VITALS ARE 97.9-059-59-100%-157/74. ABNORMAL LAB VALUES INCLUDE WBC DECREASED FRIN 18.1 TO 16.1, RBC 3.29, HGB 9.1, HCT 27.6, BUN 31, CREATININE 1.50, GLUCOSE 331, CALCIUM 8.1, ALBUMIN 3.0. A CHEST XRAY WAS OBTAINED TODAY AND REVEALED MINIMAL CARDIOMEGALY WITHOUT CONGESTIVE HEART FAILURE. TODAY, WE WILL CONTINUE WITH IV ANTIBIOTICS AND ADD DECADRON TO NEB TREATMENTS. WE WILL ALSO RECULTURE HER SPUTUM. OTHERWISE, WE WILL FOLLOW UP WITH AM LABS AND CONTINUE TO MONITOR PATIENT. - Past Medical Family Social History Past Med/Fam/Surg Hx: No changes since H&P Allergies: Allergies No Known Allergies [NKA] Allergy (Verified 07/09/17 17:18) - Review of Systems ROS: No change since H&P - Vital Signs and I&O's Vital Signs: Temperature 97.6 F Pulse Rate [Left Radial] 103 Pulse Rate 114 Respiratory Rate 19 Blood Pressure [Right Arm] 157/74 Blood Pressure [Left Arm] 130/65 Blood Pressure 93/44 O2 Sat by Pulse Oximetry 100 Intake and Output: Intake & Output 10/23/17 10/24/17 10/25/17 10/26/17 11:59 11:59 11:59 11:59 Intake Total 2042 1726 1537 2324 Output Total 700 1300 1700 Balance 2042 1026 237 624 - Physical Exam Oriented: Normal Eyes: Normal Ear: Normal Nose: Normal Throat: Normal Respiratory: Generalized, Wheezes, Rhonchi Cardiovascular: Bradycardia. negative: S3, S4, Murmur : Normal Auscultation: Bowel Sounds: Normal Palpation: Normal Tenderness: Normal Skin: Normal Musculoskeletal: Normal Psychiatric: Normal Mood Description: Calm Affect: Normal Speech Pattern: Clear - Laboratory and Diagnostics Result Diagrams: 10/26/17 04:54 10/26/17 04:54 Labs: 10/22/17 12:50 Sputum - Expectorated Sputum Sputum Culture - Final 10/22/17 12:50 Sputum - Expectorated Sputum - Final 10/21/17 11:35 Blood Blood Culture - Preliminary 10/21/17 11:20 Blood Blood Culture - Preliminary Laboratory WBC 16.1 X10^3/uL (3.6-10.0) H 10/26/17 04:54 RBC 3.29 X10^6/uL (3.5-5.4) L 10/26/17 04:54 Hgb 9.1 g/dL (12.0-16.0) L 10/26/17 04:54 Hct 27.6 % (36.0-47.0) L 10/26/17 04:54 MCV 83.8 fL (80.0-100.0) 10/26/17 04:54 MCH 27.7 pg (27.0-34.0) 10/26/17 04:54 MCHC 33.1 g/dL (33.0-35.0) 10/26/17 04:54 RDW 15.4 % (11.6-16.5) 10/26/17 04:54 Plt Count 425 X10^3/uL (150.0-450.0) 10/26/17 04:54 Plt Count Comment Adequate (ADEQUATE) 10/26/17 04:54 MPV 8.2 fL (7.4-11.0) 10/26/17 04:54 Neut % (Auto) 92.4 % (42.0-75.0) H 10/26/17 04:54 Lymph % (Auto) 5.1 % (21.0-51.0) L 10/26/17 04:54 [place] % (Auto) 2.3 % (0.0-13.0) 10/26/17 04:54 Eos % (Auto) 0.0 % (0.9-2.9) L 10/26/17 04:54 Baso % (Auto) 0.2 % (0.2-1.0) 10/26/17 04:54 Neut # (Auto) 14.9 x10^3/uL (2.2-4.8) H 10/26/17 04:54 Lymph # (Auto) 0.8 X10^3/uL (1.3-2.9) L 10/26/17 04:54 [place] # (Auto) 0.4 x10^3/uL (0.3-0.8) 10/26/17 04:54 Eos # (Auto) 0.0 x10^3/uL (0.0-0.2) 10/26/17 04:54 Baso # (Auto) 0.0 X10^3/uL (0.0-0.1) 10/26/17 04:54 Absolute Nucleated RBC 0.1 /100WBC 10/26/17 04:54 Total Counted 100 10/26/17 04:54 Neutrophils % (Manual) 86 % (39-76) H 10/26/17 04:54 Lymphocytes % (Manual) 12 % (13-43) L 10/26/17 04:54 Monocytes % (Manual) 2 % (4-9) L 10/26/17 04:54 Plt Morphology Comment Normal (NORMAL) 10/26/17 04:54 RBC Morphology Normal (NORMAL) 10/26/17 04:54 Sodium 137 mmol/L (136-145) 10/26/17 04:54 Corrected Sodium 143 mmol/L (136-145) 10/26/17 04:54 Potassium 4.2 mmol/L (3.5-5.1) 10/26/17 04:54 Chloride 104 mmol/L (98-107) 10/26/17 04:54 Carbon Dioxide 24.5 mmol/L (21-32) 10/26/17 04:54 BUN 31 mg/dL (7-18) H 10/26/17 04:54 Creatinine 1.50 mg/dL (0.55-1.02) H 10/26/17 04:54 Est GFR (MDRD) Af Amer 43 (>60) L 10/26/17 04:54 Est GFR (MDRD) Non-Af 35 (>60) L 10/26/17 04:54 Glucose 331 mg/dL (65-99) H 10/26/17 04:54 POC Glucose (mg/dL) 308 mg/dL (65-99) H 10/26/17 11:20 Lactic Acid 2.6 mmol/L (0.4-2.0) H 10/20/17 11:38 Calcium 8.1 mg/dL (8.5-10.1) L 10/26/17 04:54 Corrected Calcium 8.9 mg/dL (8.5-10.1) 10/26/17 04:54 Magnesium 2.5 mg/dL (1.7-2.9) 10/23/17 04:14 Total Bilirubin 0.20 mg/dL (0.2-1.0) 10/26/17 04:54 AST 28 Units/L (15-37) 10/26/17 04:54 ALT 14 Units/L (12-78) 10/26/17 04:54 Alkaline Phosphatase 90 Units/L (46-116) 10/26/17 04:54 Creatine Kinase 73 Units/L (26-192) 10/20/17 23:06 CK-MB (CK-2) < 1.0 ng/mL (0-4.0) 10/20/17 23:06 CK/CKMB % Calc 1.4 % (<4) 10/20/17 23:06 Troponin I < 0.02 ng/mL (0-1.5) 10/20/17 23:06 C-Reactive Protein 14.40 mg/L (0-3.0) H 10/20/17 11:38 Total Protein 6.7 g/dL (6.4-8.2) 10/26/17 04:54 Albumin 3.0 g/dL (3.4-5.0) L 10/26/17 04:54 Globulin 3.7 g/dL (2.5-4.5) 10/26/17 04:54 Albumin/Globulin Ratio 0.8 Ratio (1.1-2.1) L 10/26/17 04:54 Triglycerides 125 mg/dL (0-150) 10/21/17 05:44 Cholesterol 201 mg/dL (0-200) H 10/21/17 05:44 LDL Cholesterol, Calc 110 mg/dL (0-100) H 10/21/17 05:44 HDL Cholesterol 66 mg/dL (40-60) H 10/21/17 05:44 Cholesterol/HDL Ratio 3.0 (0.0-5.0) 10/21/17 05:44 - Plan (1) Bronchopneumonia Status: Acute Plan: FORTAZ, LEVAQUIN, MUCINEX, MUCOMYST IN BREATHING TX, LIDOCAINE IN BREATHING TX, SOLUMEDROL 40MG IV Q8H, SUPPLEMENTAL OXYGEN (2) Bradycardia Status: Acute Plan: quality assurance monitor body, normal saline at 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
[2017-10-26] MEDS: DECADRON JET NEB (RESP USE) NEB SCH ×4 (13:40→21:30)
[2017-10-26] MEDS: SNACK - Diabetic Appropriate PO SCH ×2 (20:35→20:36)
[2017-10-26] MEDS: XYLOCAINE 1 % (PLAIN) NEB PRN (21:30)
[2017-10-27] MEDS: TESSALON PERLES PO SCH ×3 (05:49→22:41)
--- NOTE | 2017-10-27 06:09 | RAD ---
HISTORY: Shortness of breath Study: Chest AP portable Comparison: 10/26/2017 Findings: The heart is minimally enlarged. No congestive heart failure is noted. No acute alveolar infiltrates or pleural effusions are identified. The bony thorax is unremarkable. Calcified breast implants are i dentified bilaterally. There is a spinal cord stimulator at the mid thoracic level. IMPRESSION: Minimal cardiomegaly without congestive heart failure No infiltrates Reported By:
[2017-10-27 06:28] LABS: BASOPHILS # (AUTO) 0.1 X10^3/uL (0.0-0.1); BASOPHILS % (AUTO) 0.5 % (0.2-1.0); HEMATOCRIT 29.9 % (36.0-47.0); HEMOGLOBIN 9.9 g/dL (12.0-16.0); LYMPHOCYTES # (AUTO) 1.6 X10^3/uL (1.3-2.9); LYMPHOCYTES % (AUTO) 10.1 % (21.0-51.0); MEAN CORPUSCULAR HGB CONC 33.2 g/dL (33.0-35.0); MEAN CORPUSCULAR VOLUME 84.4 fL (80.0-100.0); MEAN PLATELET VOLUME 8.3 fL (7.4-11.0); MONOCYTES # (AUTO) 1.2 x10^3/uL (0.3-0.8); MONOCYTES % (AUTO) 7.8 % (0.0-13.0); NEUTROPHILS # (AUTO) 13.1 x10^3/uL (2.2-4.8); NEUTROPHILS % (AUTO) 81.6 % (42.0-75.0); PLATELET COUNT 460 X10^3/uL (150.0-450.0); RED BLOOD COUNT 3.54 X10^6/uL (3.5-5.4); RED CELL DISTRIBUTION WIDTH 15.5 % (11.6-16.5)
[2017-10-27] MEDS: HumuLIN R SUBCUT PRN ×3 (06:41→17:13)
[2017-10-27 06:51] LABS: CALCIUM 8.4 mg/dL (8.5-10.1); CARBON DIOXIDE 25.6 mmol/L (21-32); COR CA(FOR HYPOALB) 9.2 mg/dL (8.5-10.1); CREATININE 1.43 mg/dL (0.55-1.02); TOTAL PROTEIN 6.8 g/dL (6.4-8.2)
[2017-10-27] MEDS: ROBITUSSIN DM PO SCH ×4 (08:32→20:30)
[2017-10-27] MEDS: NORCO 5/325 MG TAB PO SCH ×2 (08:32→20:30)
[2017-10-27] MEDS: MUCINEX DM PO SCH ×2 (08:32→21:30)
[2017-10-27] MEDS: TUSSIONEX PENNKINETIC SUSP PO SCH ×2 (08:32→22:40)
[2017-10-27] MEDS: MILK OF MAGNESIA PO SCH (08:32)
[2017-10-27] MEDS: NORVASC TAB 10 MG PO SCH (08:33)
[2017-10-27] MEDS: FORTAZ or TAZICEF INJ 1 GM in NS 100 ML IV + SPIKE MINIBAG* 100 ML IV SCH ×2 (08:33→21:30)
[2017-10-27] MEDS: DIFLUCAN 200 MG IV PREMIX* 200 MG/100 ML BAG IV SCH (08:33)
[2017-10-27] MEDS: JANUVIA PO SCH (08:33)
[2017-10-27] MEDS: LOVENOX INJ 30 MG SYR SC SCH (08:34)
[2017-10-27] MEDS: NS 1000 ML 1,000 ML IV SCH (08:34)
[2017-10-27] MEDS: DUONEB 0.5 MG/3 MG NEB SCH ×4 (09:27→21:13)
[2017-10-27] MEDS: DECADRON JET NEB (RESP USE) NEB SCH ×4 (09:27→21:13)
[2017-10-27] MEDS ORDERED: DULCOLAX SUPPOSITORY 10 MG RECTAL ONE (18:30)
[2017-10-27] MEDS: SNACK - Diabetic Appropriate PO SCH (20:00)
[2017-10-27] MEDS: XYLOCAINE 1 % (PLAIN) NEB PRN (21:13)
--- NOTE | 2017-10-27 22:01 | PCM.PROG ---
Progress Note - Progress Note for Day of Date: 10/27/17 - Subjective Subjective: IS BEING TREATED FOR BRONCHOPNEUMONIA. TODAY, SHE CONTINUES WITH A PRODUCTIVE COUGH AND SHORTNESS OF BREATH. COUGH SEEMS TO BE SIGHTLY IMPROVED SINCE YESTERDAY. SCATTERED WHEEZING AND RHONCHI NOTED TO AUSCULTATION. VITALS ARE 99.0-103-22-97%-167/74. ABNORMAL LAB VALUES INCLUDE WBC 16.0, HGB 9.9, HCT 29.9, BUN 29, CREATININE 1.43, GLUCOSE 212, CALCIUM 8.4, ALBUMIN 3.0. A REPEAT SPUTUM CULTURE IS PENDING. A CHEST XRAY WAS OBTAINED TODAY AND REVEALED MINIMAL CARDIOMEGALY WITHOUT CONGESTIVE HEART FAILURE. TODAY , WE WILL CONTINUE WITH IV ANTIBIOTICS AND RESPIRATORY TREATMENTS. OTHERWISE, WE WILL FOLLOW UP WITH AM LABS AND CONTINUE TO MONITOR PATIENT. - Past Medical Family Social History Past Med/Fam/Surg Hx: No changes since H&P Allergies: Allergies No Known Allergies [NKA] Allergy (Verified 07/09/17 17:18) - Review of Systems ROS: No change since H&P - Vital Signs and I&O's Vital Signs: Temperature 98.9 F Pulse Rate [Left Radial] 103 Pulse Rate 104 Respiratory Rate 18 Blood Pressure [Right Arm] 159/72 Blood Pressure [Left Arm] 130/65 Blood Pressure 93/44 O2 Sat by Pulse Oximetry 99 Intake and Output: Intake & Output 10/25/17 10/26/17 10/27/17 10/28/17 11:59 11:59 11:59 11:59 Intake Total 1537 2324 2387 1520 Output Total 1300 1700 1100 Balance 819 809 1315 1520 - Physical Exam Oriented: Normal Eyes: Normal Ear: Normal Nose: Normal Throat: Normal Respiratory: Generalized, Wheezes, Rhonchi Cardiovascular: Bradycardia. negative: S3, S4, Murmur : Normal Auscultation: Bowel Sounds: Normal Tenderness: Normal Skin: Normal Musculoskeletal: Normal Psychiatric: Normal Mood Description: Calm Affect: Normal Speech Pattern: Clear - Laboratory and Diagnostics Result Diagrams: 10/27/17 05:40 10/27/17 05:40 Labs: 10/26/17 10:02 Sputum - Expectorated Sputum Sputum Culture - Preliminary 10/26/17 10:02 Sputum - Expectorated Sputum - Final 10/21/17 11:35 Blood Blood Culture - Final 10/21/17 11:20 Blood Blood Culture - Final 10/22/17 12:50 Sputum - Expectorated Sputum Sputum Culture - Final 10/22/17 12:50 Sputum - Expectorated Sputum - Final Laboratory WBC 16.0 X10^3/uL (3.6-10.0) H 10/27/17 05:40 RBC 3.54 X10^6/uL (3.5-5.4) 10/27/17 05:40 Hgb 9.9 g/dL (12.0-16.0) L 10/27/17 05:40 Hct 29.9 % (36.0-47.0) L 10/27/17 05:40 MCV 84.4 fL (80.0-100.0) 10/27/17 05:40 MCH 28.0 pg (27.0-34.0) 10/27/17 05:40 MCHC 33.2 g/dL (33.0-35.0) 10/27/17 05:40 RDW 15.5 % (11.6-16.5) 10/27/17 05:40 Plt Count 460 X10^3/uL (150.0-450.0) H 10/27/17 05:40 Plt Count Comment Adequate (ADEQUATE) 10/26/17 04:54 MPV 8.3 fL (7.4-11.0) 10/27/17 05:40 Neut % (Auto) 81.6 % (42.0-75.0) H 10/27/17 05:40 Lymph % (Auto) 10.1 % (21.0-51.0) L 10/27/17 05:40 [place] % (Auto) 7.8 % (0.0-13.0) 10/27/17 05:40 Eos % (Auto) 0.0 % (0.9-2.9) L 10/27/17 05:40 Baso % (Auto) 0.5 % (0.2-1.0) 10/27/17 05:40 Neut # (Auto) 13.1 x10^3/uL (2.2-4.8) H 10/27/17 05:40 Lymph # (Auto) 1.6 X10^3/uL (1.3-2.9) 10/27/17 05:40 [place] # (Auto) 1.2 x10^3/uL (0.3-0.8) H 10/27/17 05:40 Eos # (Auto) 0.0 x10^3/uL (0.0-0.2) 10/27/17 05:40 Baso # (Auto) 0.1 X10^3/uL (0.0-0.1) 10/27/17 05:40 Absolute Nucleated RBC 0.0 /100WBC 10/27/17 05:40 Total Counted 100 10/26/17 04:54 Neutrophils % (Manual) 86 % (39-76) H 10/26/17 04:54 Lymphocytes % (Manual) 12 % (13-43) L 10/26/17 04:54 Monocytes % (Manual) 2 % (4-9) L 10/26/17 04:54 Plt Morphology Comment Normal (NORMAL) 10/26/17 04:54 RBC Morphology Normal (NORMAL) 10/26/17 04:54 Sodium 137 mmol/L (136-145) 10/27/17 05:40 Corrected Sodium 140 mmol/L (136-145) 10/27/17 05:40 Potassium 4.3 mmol/L (3.5-5.1) 10/27/17 05:40 Chloride 103 mmol/L (98-107) 10/27/17 05:40 Carbon Dioxide 25.6 mmol/L (21-32) 10/27/17 05:40 BUN 29 mg/dL (7-18) H 10/27/17 05:40 Creatinine 1.43 mg/dL (0.55-1.02) H 10/27/17 05:40 Est GFR (MDRD) Af Amer 45 (>60) L 10/27/17 05:40 Est GFR (MDRD) Non-Af 37 (>60) L 10/27/17 05:40 Glucose 212 mg/dL (65-99) H 10/27/17 05:40 POC Glucose (mg/dL) 166 mg/dL (65-99) H 10/27/17 20:51 Lactic Acid 2.6 mmol/L (0.4-2.0) H 10/20/17 11:38 Calcium 8.4 mg/dL (8.5-10.1) L 10/27/17 05:40 Corrected Calcium 9.2 mg/dL (8.5-10.1) 10/27/17 05:40 Magnesium 2.5 mg/dL (1.7-2.9) 10/23/17 04:14 Total Bilirubin 0.20 mg/dL (0.2-1.0) 10/27/17 05:40 AST 21 Units/L (15-37) 10/27/17 05:40 ALT 17 Units/L (12-78) 10/27/17 05:40 Alkaline Phosphatase 88 Units/L (46-116) 10/27/17 05:40 Creatine Kinase 73 Units/L (26-192) 10/20/17 23:06 CK-MB (CK-2) < 1.0 ng/mL (0-4.0) 10/20/17 23:06 CK/CKMB % Calc 1.4 % (<4) 10/20/17 23:06 Troponin I < 0.02 ng/mL (0-1.5) 10/20/17 23:06 C-Reactive Protein 14.40 mg/L (0-3.0) H 10/20/17 11:38 Total Protein 6.8 g/dL (6.4-8.2) 10/27/17 05:40 Albumin 3.0 g/dL (3.4-5.0) L 10/27/17 05:40 Globulin 3.8 g/dL (2.5-4.5) 10/27/17 05:40 Albumin/Globulin Ratio 0.8 Ratio (1.1-2.1) L 10/27/17 05:40 Triglycerides 125 mg/dL (0-150) 10/21/17 05:44 Cholesterol 201 mg/dL (0-200) H 10/21/17 05:44 LDL Cholesterol, Calc 110 mg/dL (0-100) H 10/21/17 05:44 HDL Cholesterol 66 mg/dL (40-60) H 10/21/17 05:44 Cholesterol/HDL Ratio 3.0 (0.0-5.0) 10/21/17 05:44 - Plan (1) Bronchopneumonia Status: Acute Plan: FORTAZ, LEVAQUIN, MUCINEX, MUCOMYST IN BREATHING TX, LIDOCAINE IN BREATHING TX, SOLUMEDROL 40MG IV Q8H, SUPPLEMENTAL OXYGEN (2) Bradycardia Status: Acute Plan: monitoring tech, normal saline at 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
[2017-10-27] MEDS: AMBIEN PO PRN (22:41)
[2017-10-28] MEDS: TESSALON PERLES PO SCH ×3 (05:42→21:45)
[2017-10-28 06:01] LABS: BASOPHILS # (AUTO) 0.1 X10^3/uL (0.0-0.1); EOSINOPHILS % (AUTO) 0.3 % (0.9-2.9); HEMATOCRIT 29.4 % (36.0-47.0); HEMOGLOBIN 9.7 g/dL (12.0-16.0); LYMPHOCYTES # (AUTO) 1.6 X10^3/uL (1.3-2.9); LYMPHOCYTES % (AUTO) 11.8 % (21.0-51.0); MEAN CORPUSCULAR HEMOGLOBIN 27.4 pg (27.0-34.0); MEAN CORPUSCULAR VOLUME 83.2 fL (80.0-100.0); MEAN PLATELET VOLUME 8.1 fL (7.4-11.0); MONOCYTES # (AUTO) 0.9 x10^3/uL (0.3-0.8); MONOCYTES % (AUTO) 6.6 % (0.0-13.0); NEUTROPHILS % (AUTO) 80.3 % (42.0-75.0); PLATELET COUNT 440 X10^3/uL (150.0-450.0); RED BLOOD COUNT 3.53 X10^6/uL (3.5-5.4); RED CELL DISTRIBUTION WIDTH 15.3 % (11.6-16.5); WHITE BLOOD COUNT 13.7 X10^3/uL (3.6-10.0)
[2017-10-28 06:10] LABS: ALBUMIN 2.8 g/dL (3.4-5.0); CALCIUM 7.4 mg/dL (8.5-10.1); CARBON DIOXIDE 26.2 mmol/L (21-32); COR CA(FOR HYPOALB) 8.4 mg/dL (8.5-10.1); CREATININE 1.34 mg/dL (0.55-1.02); TOTAL PROTEIN 6.4 g/dL (6.4-8.2)
--- NOTE | 2017-10-28 07:15 | RAD ---
HISTORY: Shortness of breath Study: Chest AP portable Comparison: 10/26/2017, 10/27/2017 Findings: The heart is minimally enlarged. No congestive heart failure is noted. The aorta is calcified and mil dly ectatic. The mario are normal. The lungs are well inflated. The right lung and left upper lung fie lds appear clear. There has been some increased density of air in degree laterally projected over the left lower lobe. This has been felt to represent overlie soft tissue from the patient's breast impla nts. However, upright PA and lateral chest examination is recommended in order to entirely exclude in filtrate. IMPRESSION: Minimal cardiomegaly without congestive heart failure Changing area of density projected over the left lower lobe which has been felt to represent overlyin g soft tissue and left breast implant. However, upright PA and lateral chest examination would be hel pful in entirely excluding a real parenchymal abnormality. Reported By:
[2017-10-28] MEDS: NORVASC TAB 10 MG PO SCH (08:26)
[2017-10-28] MEDS: ROBITUSSIN DM PO SCH ×4 (08:26→21:45)
[2017-10-28] MEDS: JANUVIA PO SCH (08:26)
[2017-10-28] MEDS: NORCO 5/325 MG TAB PO SCH ×2 (08:27→20:53)
[2017-10-28] MEDS: MUCINEX DM PO SCH ×2 (08:28→20:52)
[2017-10-28] MEDS: TUSSIONEX PENNKINETIC SUSP PO SCH ×2 (08:28→20:53)
[2017-10-28] MEDS: FORTAZ or TAZICEF INJ 1 GM in NS 100 ML IV + SPIKE MINIBAG* 100 ML IV SCH ×2 (08:30→20:52)
[2017-10-28] MEDS: MILK OF MAGNESIA PO SCH (08:33)
[2017-10-28] MEDS: LEVAQUIN PREMIX IV 750 MG 750 MG/150 ML BAG IV SCH (08:34)
[2017-10-28] MEDS: DIFLUCAN 200 MG IV PREMIX* 200 MG/100 ML BAG IV SCH (08:34)
[2017-10-28] MEDS: DUONEB 0.5 MG/3 MG NEB SCH ×4 (08:54→21:41)
[2017-10-28] MEDS: XYLOCAINE 1 % (PLAIN) NEB PRN ×2 (08:55→21:41)
[2017-10-28] MEDS: DECADRON JET NEB (RESP USE) NEB SCH ×4 (08:55→21:41)
[2017-10-28] MEDS: LOVENOX INJ 30 MG SYR SC SCH (09:50)
[2017-10-28] MEDS: NS 1000 ML 1,000 ML IV SCH (09:51)
[2017-10-28] MEDS: HumuLIN R SUBCUT PRN ×2 (12:08→19:03)
[2017-10-28] MEDS: SNACK - Diabetic Appropriate PO SCH (20:02)
[2017-10-28] MEDS: AMBIEN PO PRN (20:54)
--- NOTE | 2017-10-29 06:06 | RAD ---
HISTORY: Shortness of breath Study: Chest AP portable Comparison: 10/28/2017 Findings: The heart is upper limits normal in size. No congestive heart failure is noted. The aorta is minimall y calcified. The mario are normal. The right lung and left upper lung aragon are clear. Increased dens ity is present peripherally in the left lung base which could be due to overlying breast implant or a small infiltrate. Upright PA and lateral chest would be of further diagnostic value. No pleural effu sions are identified. The bony thorax is unremarkable. There is a spinal cord stimulator at the mid t horacic level. IMPRESSION: No significant change from the prior examination Reported By:
[2017-10-29] MEDS: HumuLIN R SUBCUT PRN ×2 (06:13→11:00)
[2017-10-29] MEDS: TESSALON PERLES PO SCH (06:15)
[2017-10-29 06:36] LABS: BASOPHILS % (AUTO) 0.3 % (0.2-1.0); EOSINOPHILS # (AUTO) 0.1 x10^3/uL (0.0-0.2); EOSINOPHILS % (AUTO) 0.6 % (0.9-2.9); HEMATOCRIT 27.5 % (36.0-47.0); HEMOGLOBIN 9.2 g/dL (12.0-16.0); LYMPHOCYTES # (AUTO) 1.6 X10^3/uL (1.3-2.9); LYMPHOCYTES % (AUTO) 13.9 % (21.0-51.0); MEAN CORPUSCULAR HEMOGLOBIN 27.9 pg (27.0-34.0); MEAN CORPUSCULAR HGB CONC 33.5 g/dL (33.0-35.0); MEAN CORPUSCULAR VOLUME 83.1 fL (80.0-100.0); MONOCYTES % (AUTO) 8.5 % (0.0-13.0); NEUTROPHILS # (AUTO) 8.8 x10^3/uL (2.2-4.8); NEUTROPHILS % (AUTO) 76.7 % (42.0-75.0); PLATELET COUNT 437 X10^3/uL (150.0-450.0); RED CELL DISTRIBUTION WIDTH 15.3 % (11.6-16.5); WHITE BLOOD COUNT 11.4 X10^3/uL (3.6-10.0)
[2017-10-29 07:05] LABS: ALBUMIN 2.7 g/dL (3.4-5.0); CARBON DIOXIDE 26.4 mmol/L (21-32); CREATININE 1.31 mg/dL (0.55-1.02); TOTAL PROTEIN 5.9 g/dL (6.4-8.2)
[2017-10-29] MEDS: ROBITUSSIN DM PO SCH (08:16)
[2017-10-29] MEDS: JANUVIA PO SCH (08:16)
[2017-10-29] MEDS: NORCO 5/325 MG TAB PO SCH (08:17)
[2017-10-29] MEDS: NORVASC TAB 10 MG PO SCH (08:17)
[2017-10-29] MEDS: DIFLUCAN 200 MG IV PREMIX* 200 MG/100 ML BAG IV SCH (08:17)
[2017-10-29] MEDS: FORTAZ or TAZICEF INJ 1 GM in NS 100 ML IV + SPIKE MINIBAG* 100 ML IV SCH (08:17)
[2017-10-29] MEDS: MUCINEX DM PO SCH (08:18)
[2017-10-29] MEDS: NS 1000 ML 1,000 ML IV SCH (08:18)
[2017-10-29] MEDS: LOVENOX INJ 30 MG SYR SC SCH (08:19)
[2017-10-29] MEDS: MILK OF MAGNESIA PO SCH (08:19)
[2017-10-29] MEDS: TUSSIONEX PENNKINETIC SUSP PO SCH (08:20)
[2017-10-29] MEDS: XYLOCAINE 1 % (PLAIN) NEB PRN (08:34)
[2017-10-29] MEDS: DECADRON JET NEB (RESP USE) NEB SCH ×2 (08:34→12:03)
[2017-10-29] MEDS: DUONEB 0.5 MG/3 MG NEB SCH ×2 (08:34→12:03)
[2017-10-29 09:27] VITALS: BP 168/72
== END 2017-10-29 12:45 | disposition home or self-care (01) | DRG 195 ==
LOC: ER 10:36 → ICU 12:50 → OBSVTOIN 10-22 09:00
PROVIDERS: ADMIT Internal Medicine; ATTEND Internal Medicine
DX: J18.0 Bronchopneumonia, unspecified organism (principal); I95.89 Other hypotension; R00.1 Bradycardia, unspecified; E11.65 Type 2 diabetes mellitus with hyperglycemia; R55 Syncope and collapse; J20.8 Acute bronchitis due to other specified organisms; R06.02 Shortness of breath; I51.7 Cardiomegaly; R26.89 Other abnormalities of gait and mobility
CPT/HCPCS: 36415; 71045; 80053; 80061; 82550; 82553; 83605; 83735; 84484; 85025; 86140; 87040; 87070; 87205; 93005; 94640; 94669; 96365; 96367; 97535; 99284; A4222; G0378; J0713; J1450; J1650; J1815; J1956; J2001; J2920; J7608; J7620

== ENCOUNTER 2017-11-08 17:33 | Emergency (ER) | payer OTHER ==
[2017-11-08 17:40] VITALS: BMI 23.9
--- NOTE | 2017-11-08 17:41 | DR.GENAD ---
HPI - Complaint/Symptoms Chief Complaint Doctors Comments: Patient presented to the ED with complaint of weakness, low blood pressure and weakness. She gives a history of being discharged from the hospital last week and has been weak without energy to move around. Relative states that she has been in the bed mostly. Upon arrival IV infusion of NS, atropine total of 3mg, norepinephrine,dopamine,and transcutaneous pacing attempted w/o success. Consult to surgery for central line placement but was unsuccessful achieving vital signs neccessary to sustaine life. Heart rate remained 40s to 50, BP 60 systolic or slightly higher. Family member (sister) reported that patient did not want any ACLS attempts to sustain life and DNR was signed. Please see nurses documentation for sequence of events. She was pronounced at 2345. Prior to prouncement patient had been accepted for transfer by milk pickup driver Dr Salazar at [facility]. Patient was not stable to transfer. PMH - PMH Past Medical History: CHF, Diabetes, Hypertension Past Surgical History: Yes Surgical History: Appendectomy, Hysterectomy - Family History Family Medical History: Hypertension - Social History Do you use any recreational Drugs:: No ROS - Review of Systems Eyes: No Symptoms Reported ENTM: No Symptoms Reported Respiratoy: No Symptoms Reported Cardiovascular: No Symptoms Reported Gastrointestinal/Abdominal: No Symptoms Reported Genitourinary: No Symptoms Reported Neurological: No Symptoms Reported Musculoskeletal: No Symptoms Reported Integumentary: Other (pale) Hematologic/Lymphatic: No Symptoms Reported Endocrine: No Symptoms Reported Psychiatric: No Symptoms Reported PE - Vital Signs Vitals: Temperature 98.8 F Pulse Rate [Apical] 52 Pulse Rate 47 Respiratory Rate 6 Blood Pressure [Right Arm] 168/72 Blood Pressure [Left Arm] 46/29 Blood Pressure 100/49 O2 Sat by Pulse Oximetry 39 - General General Appearance: Alert - Head Head Exam: Normal Inspection, Atraumatic - Eyes Eye exam: Normal Appearance, PERRL, EOMI - ENT ENT Exam: Normal Exam External Ear Exam: Normal External Inspection TM/Canal Exam: Bilateral Normal Nose Exam: Normal Nose Exam Mouth Exam: Normal Inspection Throat Exam: Normal Inspection - Neck Neck Exam: Normal Inspection - Chest Chest Inspection: Normal Inspection - Respiratory Respiratory Exam: Normal Lung Sounds Bilat Respiratory Exam: Bilateral Clear to Auscultation - Cardiovascular Cardiovascular Exam: Bradycardia - Abdominal Exam Abdominal Exam: Normal Inspection Abdominal Tenderness: negative: RUQ, RLQ, LUQ, LLQ, Epigastrium, Suprapubic, Diffuse, Mild, Moderate, Severe, Other - Extremities Extremities Exam: Normal Inspection - Neurologic Neurological Exam: Alert, Oriented X3, CN II-XII Intact - Psychiatric Psychiatric Exam: Flat Affect - Skin Skin Exam: Warm, Dry, Intact Course - Treatment Treatment: Attempts made to increase HR via pharmacologic medication, and IVF as well as transcutaneous stimulation. All attempts failed. Dr Stallings consulted and put in a central line via femoral vein. ROR - Labs Reviewed Result Diagrams: 11/08/17 22:55 11/08/17 22:55 Laboratory: WBC 12.4 X10^3/uL (3.6-10.0) H 11/08/17 22:55 RBC 2.86 X10^6/uL (3.5-5.4) L 11/08/17 22:55 Hgb 8.0 g/dL (12.0-16.0) L 11/08/17 22:55 Hct 25.3 % (36.0-47.0) L 11/08/17 22:55 MCV 88.4 fL (80.0-100.0) 11/08/17 22:55 MCH 28.1 pg (27.0-34.0) 11/08/17 22:55 MCHC 31.7 g/dL (33.0-35.0) L 11/08/17 22:55 RDW 16.9 % (11.6-16.5) H 11/08/17 22:55 Plt Count 348 X10^3/uL (150.0-450.0) 11/08/17 22:55 MPV 8.3 fL (7.4-11.0) 11/08/17 22:55 Neut % (Auto) 82.7 % (42.0-75.0) H 11/08/17 22:55 Lymph % (Auto) 14.6 % (21.0-51.0) L 11/08/17 22:55 [place] % (Auto) 2.5 % (0.0-13.0) 11/08/17 22:55 Eos % (Auto) 0.0 % (0.9-2.9) L 11/08/17 22:55 Baso % (Auto) 0.2 % (0.2-1.0) 11/08/17 22:55 Neut # (Auto) 10.2 x10^3/uL (2.2-4.8) H 11/08/17 22:55 Lymph # (Auto) 1.8 X10^3/uL (1.3-2.9) 11/08/17 22:55 [place] # (Auto) 0.3 x10^3/uL (0.3-0.8) 11/08/17 22:55 Eos # (Auto) 0.0 x10^3/uL (0.0-0.2) 11/08/17 22:55 Baso # (Auto) 0.0 X10^3/uL (0.0-0.1) 11/08/17 22:55 Absolute Nucleated RBC 0.0 /100WBC 11/08/17 22:55 INR Target Range - 11/08/17 17:54 INR 1.10 (0.8-1.3) 11/08/17 17:54 APTT 24.7 SECONDS (22.9-36.5) 11/08/17 17:54 PTT Comment - 11/08/17 17:54 D-Dimer 2060 ng/mL (0-400) H* 11/08/17 17:54 Sample Site Right brachial 11/08/17 22:50 ABG pH 7.140 (7.35-7.45) L* 11/08/17 22:50 ABG pCO2 29.0 mmHg (35.0-45.0) L 11/08/17 22:50 ABG pO2 52.0 mmHg (80.0-100.0) L 11/08/17 22:50 ABG HCO3 9.9 mmol/L (22-26) L* 11/08/17 22:50 ABG O2 Saturation 73.0 % (90-100) L* 11/08/17 22:50 ABG Base Excess -17.8 mmol/L (-2.0-2.0) L 11/08/17 22:50 Micheal Test Na 11/08/17 22:50 A-a Gradient 111.0 mmHg 11/08/17 22:50 FiO2 28.000 11/08/17 22:50 Blood Gas Comments Luis Eduardo well jts 11/08/17 22:50 Sodium 138 mmol/L (136-145) 11/08/17 22:55 Corrected Sodium 143 mmol/L (136-145) 11/08/17 22:55 Potassium 7.0 mmol/L (3.5-5.1) H* 11/08/17 22:55 Chloride 110 mmol/L (98-107) H 11/08/17 22:55 Carbon Dioxide 12.3 mmol/L (21-32) L* 11/08/17 22:55 BUN 47 mg/dL (7-18) H 11/08/17 22:55 Creatinine 2.23 mg/dL (0.55-1.02) H 11/08/17 22:55 Est GFR (MDRD) Af Amer 27 (>60) L 11/08/17 22:55 Est GFR (MDRD) Non-Af 22 (>60) L 11/08/17 22:55 Glucose 320 mg/dL (65-99) H 11/08/17 22:55 Calcium 6.1 mg/dL (8.5-10.1) L 11/08/17 22:55 Magnesium 1.1 mg/dL (1.7-2.9) L 11/08/17 17:54 Creatine Kinase 24 Units/L (26-192) L 11/08/17 22:55 CK-MB (CK-2) < 1.0 ng/mL (0-4.0) 11/08/17 22:55 CK/CKMB % Calc 4.2 % (<4) 11/08/17 22:55 Troponin I < 0.02 ng/mL (0-1.5) 11/08/17 22:55 Specimen Type Catherized urine 11/08/17 20:55 Urine Color Yellow (YELLOW) 11/08/17 20:55 Urine Appearance Clear (CLEAR) 11/08/17 20:55 Urine pH 5.0 (5.0 - 8.0) 11/08/17 20:55 Ur Specific [place] 1.020 (1.000-1.030) 11/08/17 20:55 Urine Protein 2+ (NEGATIVE) 11/08/17 20:55 Urine Glucose (UA) Negative (NEGATIVE) 11/08/17 20:55 Urine Ketones Negative (NEGATIVE) 11/08/17 20:55 Urine Occult Blood Negative (NEGATIVE) 11/08/17 20:55 Urine Nitrite Negative (NEGATIVE) 11/08/17 20:55 Urine Bilirubin 1+ (NEGATIVE) 11/08/17 20:55 Urine Urobilinogen Normal (NORMAL) 11/08/17 20:55 Ur Leukocyte Esterase Negative (NEGATIVE) 11/08/17 20:55 Urine RBC 0-2 /HPF (NONE SEEN) 11/08/17 20:55 Urine WBC 0-2 /HPF (NONE SEEN) 11/08/17 20:55 Ur Squamous Epith Cells Few /HPF (NEGATIVE) 11/08/17 20:55 Urine Bacteria Trace /HPF (NEGATIVE) 11/08/17 20:55 Ur Culture Indicated? No/not indicated 11/08/17 20:55 - Diagnosis Discharge Problem: - Discharge Plan Disposition: [facility] AT [facility] Condition: Stable - Follow ups/Referrals Follow ups/Referrals: Shamir Skelton [Primary Care Provider] - 3 days - Instructions
[2017-11-08] MEDS ORDERED: NS 1000 ML 1,000 ML ONE ×2 (17:47→18:43)
[2017-11-08] MEDS ORDERED: ATROPINE SULFATE ABBOJECT ONE ×3 (17:54→19:01)
[2017-11-08] MEDS ORDERED: ATROPINE SULFATE ABBOJECT IVP ONE ×3 (17:58→19:05)
[2017-11-08] MEDS ORDERED: NS 1000 ML 1,000 ML IV SCH (18:00)
[2017-11-08] MEDS ORDERED: DOPAMINE IV PREMIX 400 MG/250 ML 400 MG/250 ML BAG IV ONE (18:10)
[2017-11-08 18:16] LABS: BASOPHILS # (AUTO) 0.1 X10^3/uL (0.0-0.1); BASOPHILS % (AUTO) 0.8 % (0.2-1.0); EOSINOPHILS % (AUTO) 0.1 % (0.9-2.9); HEMATOCRIT 27.1 % (36.0-47.0); HEMOGLOBIN 8.8 g/dL (12.0-16.0); LYMPHOCYTES # (AUTO) 1.1 X10^3/uL (1.3-2.9); MEAN CORPUSCULAR HEMOGLOBIN 27.7 pg (27.0-34.0); MEAN CORPUSCULAR HGB CONC 32.5 g/dL (33.0-35.0); MEAN CORPUSCULAR VOLUME 85.3 fL (80.0-100.0); MEAN PLATELET VOLUME 8.3 fL (7.4-11.0); MONOCYTES # (AUTO) 0.2 x10^3/uL (0.3-0.8); MONOCYTES % (AUTO) 1.4 % (0.0-13.0); NEUTROPHILS % (AUTO) 89.7 % (42.0-75.0); PLATELET COUNT 385 X10^3/uL (150.0-450.0); RED BLOOD COUNT 3.17 X10^6/uL (3.5-5.4); WHITE BLOOD COUNT 13.4 X10^3/uL (3.6-10.0)
[2017-11-08] MEDS ORDERED: DOPAMINE IV PREMIX 400 MG/250 ML 400 MG/250 ML BAG IV PRN (18:17)
--- NOTE | 2017-11-08 18:22 | RAD ---
HISTORY: Hypotension Study: Single view of the chest. Comparison: 10/29/2017 Findings: The cardiomediastinal silhouette is normal. No focal consolidations, pleural effusions or pneumothora x. Osseous structures demonstrate no acute abnormality. IMPRESSION: 1. No acute cardiopulmonary process. Reported By:
[2017-11-08 18:35] LABS: CKMB % 3.4 % (<4); CREATINE KINASE 32 Units/L (26-192); CREATINE KINASE MB 1.1 ng/mL (0-4.0); MAGNESIUM 1.1 mg/dL (1.7-2.9); TROPONIN I < 0.02 ng/mL (0-1.5)
[2017-11-08] MEDS ORDERED: NS 1000 ML 1,000 ML IV ONE ×3 (19:14→21:30)
[2017-11-08] MEDS ORDERED: ADACEL TDaP IM ONE (19:26)
[2017-11-08] MEDS ORDERED: LEVOPHED INJ 8 MG in D5W 250 ML IV 242 ML IV PRN (20:39)
[2017-11-08] MEDS ORDERED: LEVOPHED INJ ONE (20:48)
[2017-11-08] MEDS ORDERED: D5W 250 ML IV 250 ML IV ONE (20:53)
[2017-11-08 21:00] LABS: BILIRUBIN,URINE 1+ (NEGATIVE); BLOOD/HEMOGLOBIN,URINE NEGATIVE (NEGATIVE); GLUCOSE, URINE NEGATIVE (NEGATIVE); KETONES,URINE NEGATIVE (NEGATIVE); LEUKOCYTE ESTERASE ,URINE NEGATIVE (NEGATIVE); NITRITES,URINE NEGATIVE (NEGATIVE); PROTEIN,URINE 2+ (NEGATIVE); UROBILINOGEN,URINE NORMAL (NORMAL)
[2017-11-08] MEDS ORDERED: XYLOCAINE 1 % (PLAIN) ONE (21:02)
[2017-11-08 21:06] LABS: APPEARANCE,URINE CLEAR (CLEAR); BACTERIA,URINE TRACE /HPF (NEGATIVE); COLOR,URINE YELLOW (YELLOW); RBC,URINE 0-2 /HPF (NONE SEEN); SQUAMOUS EPITHELIAL CELL,UR FEW /HPF (NEGATIVE)
[2017-11-08] MEDS ORDERED: NS 1000 ML 2,000 ML ONE (21:29)
--- NOTE | 2017-11-08 22:03 | RAD ---
HISTORY: Central line placement in left groin Study: Single view of the pelvis. Comparison: None Findings: Patient is significantly rotated to the right. There multiple catheters overlying the pelvis. No rojas ningful comment can be made on catheter positioning given the rotation of this patient. IMPRESSION: 1. No meaningful comment can be made on catheter positioning given the rotation of the patient. Reported By:
[2017-11-08 23:01] LABS: ABG BASE EXCESS -17.8 mmol/L (-2.0-2.0)
[2017-11-08 23:02] LABS: ABG HCO3 9.9 mmol/L (22-26)
[2017-11-08] MEDS ORDERED: LASIX IVP ONE ×2 (23:03→23:04)
[2017-11-08 23:20] LABS: BASOPHILS % (AUTO) 0.2 % (0.2-1.0); HEMATOCRIT 25.3 % (36.0-47.0); LYMPHOCYTES # (AUTO) 1.8 X10^3/uL (1.3-2.9); LYMPHOCYTES % (AUTO) 14.6 % (21.0-51.0); MEAN CORPUSCULAR HEMOGLOBIN 28.1 pg (27.0-34.0); MEAN CORPUSCULAR HGB CONC 31.7 g/dL (33.0-35.0); MEAN CORPUSCULAR VOLUME 88.4 fL (80.0-100.0); MEAN PLATELET VOLUME 8.3 fL (7.4-11.0); MONOCYTES # (AUTO) 0.3 x10^3/uL (0.3-0.8); MONOCYTES % (AUTO) 2.5 % (0.0-13.0); NEUTROPHILS # (AUTO) 10.2 x10^3/uL (2.2-4.8); NEUTROPHILS % (AUTO) 82.7 % (42.0-75.0); PLATELET COUNT 348 X10^3/uL (150.0-450.0); RED BLOOD COUNT 2.86 X10^6/uL (3.5-5.4); RED CELL DISTRIBUTION WIDTH 16.9 % (11.6-16.5); WHITE BLOOD COUNT 12.4 X10^3/uL (3.6-10.0)
[2017-11-08 23:36] LABS: BLOOD UREA NITROGEN 47 mg/dL (7-18); CALCIUM 6.1 mg/dL (8.5-10.1); CHLORIDE 110 mmol/L (98-107); CKMB % 4.2 % (<4); COR NA(FOR HYPERGLY) 143 mmol/L (136-145); CREATINE KINASE 24 Units/L (26-192); CREATINE KINASE MB < 1.0 ng/mL (0-4.0); CREATININE 2.23 mg/dL (0.55-1.02); SODIUM 138 mmol/L (136-145); TROPONIN I < 0.02 ng/mL (0-1.5); eGFR BLACK RACES 27 (>60); eGFR NON BLACK RACES 22 (>60)
[2017-11-08 23:49] LABS: CARBON DIOXIDE 12.3 mmol/L (21-32)
[2017-11-08 23:51] VITALS: BP 46/29
== END 2017-11-09 01:20 ==
LOC: ER 17:44
PROC: 06HN33Z Insertion of Infusion Device into Left Femoral Vein, Percutaneous Approach (ICD-10-PCS; principal; 2017-11-08)
DX: I46.9 Cardiac arrest, cause unspecified (principal); R00.1 Bradycardia, unspecified; R53.1 Weakness; R03.1 Nonspecific low blood-pressure reading; I10 Essential (primary) hypertension
CPT/HCPCS: 36415; 36556; 36600; 51702; 71045; 72170; 80048; 81001; 82550; 82553; 82803; 83735; 84484; 85025; 85378; 85610; 85730; 93005; 93010; 93041; 96365; 96367; 96374; 96375; 99283; 99284; 99291; A4222; J1265; J1940; J2001